=== PATIENT | female | born 1945 | race Caucasian/White ===

== ENCOUNTER 2017-02-16 07:47 | Day surgery (SDC) | payer MEDICARE, MEDICAID, SELFPAY ==
[2017-02-15 12:45] VITALS: BMI 29.9
[2017-02-16 09:13] LABS: Blood Urea Nitrogen 29 mg/dL (7-18); Carbon Dioxide 21 mmol/L (21.0-32.0); Chloride 107 mmol/L (98-107); Creatinine Clearance Estimated 42 mg/ml (0-300); Creatinine,Serum 1.39 mg/dL (0.55-1.02); Estimated Glomerular Filt Rate 37 ml/min (>60); GFR (African American) 45 ML/MIN (>60); Glucose 124 mg/dL (74-106); Sodium 137 mmol/L (136-145)
--- NOTE | 2017-02-16 10:00 | P.PN_ITS ---
[facility] Anesthesia Checklist - Airway Assessment C-Spine Mobility Assessed: Yes (MP2) TMJ Mobility Assessed: Yes - Neurological Assessment Level of Consciousness: Awake, Alert - Anesthesia Plan Anesthesia Risk discussed: Yes Anesthesia Plan: Verified ASA Class: III Anesthesia Type: MAC [facility] Anesthesia HX Medical History: Reports:: Diabetes Mellitus Type 2 (diet controlled), Hypertension Denies:: Cancer, Diabetes Mellitus Type 1, MRSA, Seizures Other Medical History: Denies: Blood Transfusion Reaction Comment: MURMUR Laterality Cases: Bilateral: Cataract Amputation: No Comment: Cystoscopy *Family Hx:: Hyperlipidemia, Hypertension
[2017-02-16 10:40] VITALS: BP 102/51; PULSE 78; RESP 18; TEMP 36.4; O2SAT 96
[2017-02-16 10:55] VITALS: BP 116/89; PULSE 71; RESP 20; TEMP 36.4; O2SAT 99
[2017-02-16 11:10] VITALS: BP 133/57; PULSE 73; RESP 20; TEMP 36.4; O2SAT 96
--- NOTE | 2017-02-16 11:28 | SUR.PHASEII ---
FU APPT MADE FOR MARCH 23, AT 1PM
--- NOTE | 2017-02-16 12:46 | P.OP_ITS ---
Date of procedure: 02/16/17 Pre-op Diagnosis:: Chronic cystitis and dysuria Post-op diagnosis:: same Procedure performed:: Cystoscopy with urethral dilation Surgeon:: Ananda Mondragon MD Anesthesia: MAC Estimated blood loss (mL): 0 Clinical Note:: History of chronic cystitis and urethritis symptoms. She has urinary frequency nocturia and dysuria. Typically she responds to urethral dilation. Operative findings:: Satisfactory sedation she was placed in the dorsolithotomy position. gENITAL area was prepped and draped in standard manner. A 21 Burmese cystoscope sheath was introduced. The bladder was inspected with 30 and 70? lenses. He had moderate squamous metaplasia of the trigone. Her urethra was snug on the sheath. She was calibrated 24 through 30 Burmese with the Paul sounds Xylocaine jelly was instilled. Operative note:: As above Pathology: none sent Condition: stable Disposition: PACU Complications:: None Placed on Levaquin 250 mg daily for 3 weeks and will follow up in 1 month.
== END 2017-02-16 11:26 | disposition home or self-care (01) ==
PROVIDERS: Family Provider Nurse Practitioner Family; PCP Nurse Practitioner; Visit Provider Urology
PROC: 0TJB8ZZ Inspection of Bladder, Via Natural or Artificial Opening Endoscopic (ICD-10-PCS; CPT 52000; principal; 2017-02-16 10:00)
DX: N34.2 Other urethritis (principal)
CPT/HCPCS: 52281; 80048; 87086; 87088; 87186

== ENCOUNTER → 2017-05-31 10:01 | Outpatient (POV) | payer MEDICARE, MEDICAID, SELFPAY | PROVIDERS: Visit Provider Physician Assistant | DX: Z00.00 Encounter for general adult medical examination without abnormal findings (principal) ==

== ENCOUNTER → 2017-11-01 13:18 | Outpatient (POV) | payer MEDICARE, MEDICAID, SELFPAY | PROVIDERS: Family Provider Nurse Practitioner Family; PCP Nurse Practitioner; Visit Provider Physician Assistant | DX: Z00.00 Encounter for general adult medical examination without abnormal findings (principal) ==

== ENCOUNTER → 2017-12-07 12:58 | Outpatient (POV) | payer MEDICARE, MEDICAID, SELFPAY | PROVIDERS: Visit Provider Dermatology | DX: Z00.00 Encounter for general adult medical examination without abnormal findings (principal) ==

== ENCOUNTER → 2018-03-04 13:07 | Outpatient (CLI) | payer MEDICARE, MEDICAID, SELFPAY ==
--- NOTE | 2018-03-04 | US_ITS ---
ULTRASOUND THYROID PROCEDURE: Multiple sagittal & transverse ultrasound images of the thyroid. HISTORY: Enlarged thyroid Sore throat. Neck swelling COMPARISON: No prior thyroid ultrasound Previous MR neck partially includes thyroid ----- FINDINGS: Bilateral thyroid enlargement left lobe larger than right. Slight Decreased color Doppler flow bilateral thyroid RIGHT LOBE: 4.1 cm x 1.7 cm AP x1.6 cmtransverse. Nodule A: Small hypoechoic mixed density nodule midportion right lobeMeasures up to 7.5 mm length maximally Nodule B: Small hypoechoic mixed mainly cystic nodule measuring up to 5 mm maximally at lateral margin lower right lobe Nodule C: 1.15 cm hypoechoic debris-filled cyst or hypoechoic nodule at posterior aspect lower right lobe. LEFT LOBE: 4.8 cm length of 2 cm AP x 2.2 cm transverse. Nodule A: hypoechoic nodule or more likely debris-filled cyst mid left lobe. Just less than 6 mm size Nodule B: Hypoechoic likely debris-filled cyst measuring up to just less than 8 mm length Nodule C: Solid nodule posterior left lobe measures up to 15 mm length x 77 mm. X 13 mm transverse. Nodule D: Probable cyst posterior aspect upper left lobe measuring up to 7.3 mm maximum ----- ISTHMUS: Thickened measuring up to 1.1 cm ------IMPRESSION. --------- Thyromegaly. Bilateral thyroid enlargement. Left lobe larger than right, with thickening isthmus also noted. . Bilateral thyroid nodules & cysts. The largest solid nodule measuring up to 1.5 cm at the posterior aspect lower pole left lobe.
--- NOTE | 2018-03-04 13:14 | US_ITS ---
US soft tissue head and neck Ordering Physician: Antonella Mena Patient Age: 72 years: Female HISTORY: ITS.REASON: NECK SWELLINGneck swelling sore throat TECHNIQUE: Multiple axial sagittal images of neck bilaterally. Including images of submandibular and parotid glands bilaterally as well as survey of nodes COMPARISON :Oct 2016 MRI of the C-spine FINDINGS Right submandibular gland measures up to 3.4 seem in length. Left submandibular gland 3.45 cm length. A fairly symmetric. No submandibular mass evident Superior to the left submandibular gland there is a 1 cm x 0.65 cm hypoechoic nodule, lymph node. This is most likely a generous benign lymph node but I would like to see a more evident fatty hilum to confirm its benign nature . I suggest follow-up 4 months. It enlarges or neck symptoms progress CT neck with contrast suggested A Oct 2016 MRI of the C-spine shows shows similar benign appearing lymph nodes bilaterally in this region, noted posterior to the superior aspect of submandibular gland bilaterally.. These measure up to 9 mm bilaterally and slightly more evident on left. . IMPRESSION 1.... No prominent findings.... No mass lesion or significant appearing adenopathy at the neck identified Submandibular and parotid glands appear symmetric & unremarkable on today's ultrasound survey 2.... A 1 cm lymph node superior to the left submandibular gland was noted. Appears to be benign lymph node, with similar appearing benign appearing bilateral lymph nodes on previous MRI C-spine. If any progressive palpable fullness at neck or swelling or progressive symptoms at neck, would suggest follow-up CT with contrast. This would provides more optimal survey overview of entire neck.
== END ==
PROVIDERS: PCP Nurse Practitioner Family; Visit Provider Nurse Practitioner Family
DX: R22.1 Localized swelling, mass and lump, neck (principal)
CPT/HCPCS: 76536

== ENCOUNTER → 2018-03-10 11:53 | Outpatient (CLI) | payer MEDICARE, MEDICAID, SELFPAY ==
[2018-03-10 13:21] LABS: Blood Urea Nitrogen 28 mg/dL (7-18); Calcium 9.7 mg/dL (8.5-10.1); Carbon Dioxide 21 mmol/L (21.0-32.0); Chloride 106 mmol/L (98-107); Creatinine,Serum 1.37 mg/dL (0.55-1.02); Estimated Glomerular Filt Rate 38 ml/min (>60); GFR (African American) 46 ML/MIN (>60); Glucose 118 mg/dL (74-106); Sodium 139 mmol/L (136-145)
== END ==
PROVIDERS: Visit Provider Internal Medicine Cardiovascular Disease
DX: I10 Essential (primary) hypertension (principal); R94.31 Abnormal electrocardiogram [ECG] [EKG]
CPT/HCPCS: 36415; 80048

== ENCOUNTER → 2018-03-23 09:56 | Outpatient (CLI) | payer MEDICARE, MEDICAID, SELFPAY ==
--- NOTE | 2018-03-23 09:57 | NM_ITS ---
History and Indications: Hypertension, diabetes, hyperlipidemia, shortness of breath and abnormal EKG. Procedure: Patient received a 0.4 mg of intravenous Lexiscan, resting heart rate was 66 bpm resting blood pressure 181/79, with Lexiscan maximum heart rate achieved was 88 bpm which is less than 85% of the maximum] heart rate and a blood pressure was 141/72. With Lexiscan patient complained of malaise. Electrocardiogram: Resting electrocardiogram showed sinus rhythm nonspecific ST-T changes, with Lexiscan there is less than 1.[address] segment depression noted from the baseline EKG. The EKG portion of the Lexiscan Myoview is nondiagnostic. Cardiac stress and resting SPECT images: Cardiac stress and resting SPECT images were obtained using technetium 99 Myoview 32.2 mCi at stress and 11.2 mCi at rest. Gated SPECT further analysis of segmental wall motion and calculation of the ejection fraction also done. Cardiac stress and resting SPECT images show decreased tracer activity in the anterior, anteroapical and anteroseptal wall which improves on the resting images suggestive of reversible ischemia, computer derived ejection fraction is over 65% with no regional wall motion abnormality, right ventricle is normal size and contractility. Conclusion: 1. The EKG portion of the Lexiscan Myoview is nondiagnostic. 2. Scintigraphic evidence of mild reversible ischemia involving the anterior and anteroseptal wall, computer derived ejection fraction is over 65% with no regional wall motion abnormality, right ventricle is normal size and contractility. 3. Abnormal Lexiscan Myoview study.
--- NOTE | 2018-03-23 09:57 | CA_ITS ---
PROCEDURE: 2-D M-mode and color Doppler study INDICATIONS FOR THE TEST: Chest pain COPD Heart Murmur Tobacco Smoking Palpitations Fatigue Syncope Edema Hypertension+Diabetes Mellitus+ Rheumatic Fever SOB BAUTISTA Obesity Hyperlipidemia+ Family History HD Additional History ABN EKG, CKD PATIENT INFORMATION HEIGHT: 62 WEIGHT: 159 GENDER: Female B/P: 181/71 2-D/M-MODE INTERPRETATION: 2-D MEASUREMENTS OBSERVED VALUES IN CMS Right Ventricular Dimension (RVDd) 2.3 Interventricular Septum (Thickness)(IVsd) 0.8 Left Ventricular Internal Dimensions(LVIDd) 4.4 Left Ventricular Posterior Wall (Thickness)(LVPWd) 0.8 Aortic Root 2.1 Aortic Cusp Separation 1.7 Left Atrial Dimensions (LAD) 4.2 2D 1. Left atrium is mildly enlarged, left ventricle is normal size, mild concentric left ventricular hypertrophy, visually estimated ejection fraction 55% with no regional wall motion abnormality. 2. The right atrium and right ventricle are qualitatively mildly enlarged with normal contractility. 3. The aortic valve is thickened and calcified leaflet continue to display mobility. 4. The mitral and tricuspid valve leaflets are minimally thickened. 5. The pulmonic valve is poorly present. 6. No significant pericardial effusion noted. DOPPLER INTERROGATION: Doppler interrogation of the aortic, mitral and tricuspid valvular presence of mild mitral and tricuspid regurgitation, tricuspid regurgitation jet velocity is inadequate for calculation of the right ventricular systolic pressure, grade 1 diastolic dysfunction seen with tissue Doppler evidence of raised left atrial pressure. CONCLUSION: 1. Mildly enlarged left atrium, normal left ventricular size, mild concentric left ventricular hypertrophy, visually estimated ejection fraction of 55% with no regional wall motion abnormality, grade 1 diastolic dysfunction seen with tissue Doppler evidence of raised left atrial pressure. 2. Mildly enlarged right ventricle with normal contractility. 3. Mild mitral and tricuspid regurgitation. 4. No significant pericardial effusion noted.
--- NOTE | 2018-03-23 12:29 | HMH.ITSHM ---
Current Home Medications as stated by this patient Jesas Cristobal or software support representative. []METOPROLOL NIFEDIPINE VITAMIN D2 ASA
== END ==
PROVIDERS: PCP Nurse Practitioner Family; Visit Provider Internal Medicine Cardiovascular Disease
DX: R94.31 Abnormal electrocardiogram [ECG] [EKG]; E11.8 Type 2 diabetes mellitus with unspecified complications; E78.5 Hyperlipidemia, unspecified; N18.9 Chronic kidney disease, unspecified; R22.0 Localized swelling, mass and lump, head; R42 Dizziness and giddiness
CPT/HCPCS: 78452; 93017; 93306; A9502; J2785

== ENCOUNTER → 2018-03-31 13:31 | Outpatient (CLI) | payer MEDICARE, MEDICAID, SELFPAY ==
[2018-03-31 14:56] LABS: Calcium 9.7 mg/dL (8.5-10.1); Free T4 (Free Thyroxine) 1.06 ng/dl (0.76-1.46); Thyroid Stimulating Hormone 2.09 uIU/ml (0.358-3.740)
[2018-04-01 12:28] LABS: Thyroid Peroxidase Antibodies 34 IU/mL (0-34)
[2018-04-05 09:51] LABS: Calcitonin <2.0 pg/mL (0.0-5.0); Thyroid Stimulating Immunoglob <0.10 IU/L (0.00-0.55)
== END ==
PROVIDERS: Visit Provider Otolaryngology
DX: E01.0 Iodine-deficiency related diffuse (endemic) goiter (principal)
CPT/HCPCS: 36415; 82308; 82310; 84439; 84443; 84445; 86376

== ENCOUNTER → 2018-04-21 09:43 | Outpatient (CLI) | payer MEDICARE, MEDICAID, SELFPAY ==
--- NOTE | 2018-04-21 09:46 | FL_ITS ---
FL barium swallow INDICATION: Soreness in throat for 2 months. Persistent sore throat : pressure in throat dysphagia . Thyromegaly with scattered thyroid nodules on recent thyroid ultrasound. TECHNIQUE & FINDINGS: . Esophagram were performed following August 02 of barium. Esophagram fluoroscopy observation performed by Dr. Sethi 2 minutes 8 seconds seconds fluoroscopy time. Normal appearing cervical esophagus. Normal cricopharyngeus muscle Symmetrical vallecula and piriform sinuses . I would note moderate Anterior osteophytes throughout C-spine which only very slightly impinge upon the lower cervical esophagus and could conceivably yield some minor symptoms of dysphagia-but these are unimpressive, and the patient's symptoms seem to be more superior than I would anticipate from such. On also note history of thyroid nodules and thyromegaly but the esophagus and trachea remaining midline. No displacement The thoracic esophagus appears with normal peristalsis and no lesions. There are some scant GE reflux during the latter course of the study but this was minimal.. No hiatal hernia expressed with Valsalva. GE junction satisfactory. IMPRESSION:. 1. No prominent findings.. Minor observations: . 2. Cervical esophagus appears overall satisfactory. There are Moderate anterior marginal osteophytes throughout C-spine which slightly impinge upon the posterior aspect cervical esophagus, particularly inferiorly. Conceivably Could contribute to symptoms of dysphagia, but the patient's symptoms seem to be superior to these features; thus of doubtful significance.. 3. Scant GE reflux observed. No hiatal hernia. Thoracic esophagus otherwise unremarkable
== END ==
PROVIDERS: PCP Nurse Practitioner Family; Visit Provider Otolaryngology
DX: E04.1 Nontoxic single thyroid nodule (principal); R13.10 Dysphagia, unspecified
CPT/HCPCS: 74220

== ENCOUNTER → 2018-04-28 13:33 | Outpatient (CLI) | payer MEDICARE, MEDICAID, SELFPAY ==
[2018-04-28 15:27] LABS: Free T4 (Free Thyroxine) 1.03 ng/dl (0.76-1.46); Thyroid Stimulating Hormone 1.21 uIU/ml (0.358-3.740)
== END ==
PROVIDERS: Visit Provider Otolaryngology
DX: R13.10 Dysphagia, unspecified (principal)
CPT/HCPCS: 36415; 84439; 84443

== ENCOUNTER → 2018-05-03 12:48 | Outpatient (POV) | payer MEDICARE, MEDICAID, SELFPAY | PROVIDERS: Visit Provider Dermatology | DX: Z00.00 Encounter for general adult medical examination without abnormal findings (principal) ==

== ENCOUNTER → 2018-05-10 12:42 | Outpatient (CLI) | payer MEDICARE, MEDICAID, SELFPAY ==
--- NOTE | 2018-05-10 12:44 | US_ITS ---
US thyroid HISTORY: follow-up thyroid nodules ITS.REASON: Thyroid nodule ORDERING PHYSICIAN: Randy Greco MD PATIENT AGE: 73 years Comparison: 03/04/2018 FINDINGS: The isthmus is thickened at 1 cm similar to the previous exam. The right lobe is 4.2 x 1.4 x 2 cm. There are no change in the 5 hypoechoic/cystic nodules of the right lobe of the thyroid gland. The largest nodule is 1 cm and is in the mid aspect.. These have low level of suspicion for malignancy. The left lobe is 4.2 x 1.9 x 2.2 cm. Multiple hypoechoic nodules also noted on the left with an isoechoic 8 mm nodule in the mid polar region unchanged. A solid-appearing nodule is present in the lower pole at 12 mm and is slightly smaller previously at 16 mm. IMPRESSION: Overall no change in the multiple bilateral thyroid nodules which have low level of suspicion for malignancy
== END ==
PROVIDERS: PCP Nurse Practitioner Family; Visit Provider Otolaryngology
DX: E04.1 Nontoxic single thyroid nodule (principal)
CPT/HCPCS: 76536

== ENCOUNTER → 2018-07-22 11:45 | Outpatient (CLI) | payer MEDICARE, MEDICAID, SELFPAY ==
[2018-07-22 17:24] LABS: Anion Gap 18.3 mEq/L (5-15); Blood Urea Nitrogen 38 mg/dL (7-18); Calcium 9.1 mg/dL (8.5-10.1); Carbon Dioxide 21 mmol/L (21.0-32.0); Chloride 107 mmol/L (98-107); Creatinine,Serum 1.41 mg/dL (0.55-1.02); Estimated Glomerular Filt Rate 36 ml/min (>60); GFR (African American) 44 ML/MIN (>60); Glucose 108 mg/dL (74-106); Potassium 5.3 mmoL/L (3.5-5.1); Sodium 141 mmol/L (136-145)
== END ==
PROVIDERS: Visit Provider Internal Medicine Cardiovascular Disease
DX: E11.9 Type 2 diabetes mellitus without complications (principal); I25.10 Atherosclerotic heart disease of native coronary artery without angina pectoris; N18.9 Chronic kidney disease, unspecified
CPT/HCPCS: 36415; 80048

== ENCOUNTER → 2018-08-02 13:39 | Outpatient (POV) | payer MEDICARE, MEDICAID, SELFPAY ==
[2018-08-02 14:50] LABS: Anion Gap 16.2 mEq/L (5-15); Blood Urea Nitrogen 39 mg/dL (7-18); Calcium 9.1 mg/dL (8.5-10.1); Carbon Dioxide 22 mmol/L (21.0-32.0); Chloride 108 mmol/L (98-107); Creatinine,Serum 1.77 mg/dL (0.55-1.02); Estimated Glomerular Filt Rate 28 ml/min (>60); GFR (African American) 34 ML/MIN (>60); Glucose 111 mg/dL (74-106); Potassium 5.2 mmoL/L (3.5-5.1); Sodium 141 mmol/L (136-145)
== END ==
PROVIDERS: Urology; Visit Provider Dermatology
DX: E87.5 Hyperkalemia (principal); I10 Essential (primary) hypertension; I25.10 Atherosclerotic heart disease of native coronary artery without angina pectoris
CPT/HCPCS: 36415; 80048

== ENCOUNTER → 2018-08-05 08:28 | Outpatient (CLI) | payer MEDICARE, MEDICAID, SELFPAY ==
[2018-08-05 10:31] LABS: Anion Gap 18.7 mEq/L (5-15); Blood Urea Nitrogen 29 mg/dL (7-18); Calcium 8.7 mg/dL (8.5-10.1); Carbon Dioxide 22 mmol/L (21.0-32.0); Chloride 106 mmol/L (98-107); Creatinine,Serum 1.31 mg/dL (0.55-1.02); Estimated Glomerular Filt Rate 40 ml/min (>60); GFR (African American) 48 ML/MIN (>60); Glucose 108 mg/dL (74-106); Sodium 141 mmol/L (136-145)
[2018-08-05 10:32] LABS: Potassium 5.7 mmoL/L (3.5-5.1)
== END ==
PROVIDERS: Visit Provider Internal Medicine Cardiovascular Disease
DX: E78.5 Hyperlipidemia, unspecified (principal); I10 Essential (primary) hypertension; I25.10 Atherosclerotic heart disease of native coronary artery without angina pectoris
CPT/HCPCS: 36415; 80048

== ENCOUNTER → 2018-08-08 08:27 | Outpatient (CLI) | payer MEDICARE, MEDICAID, SELFPAY ==
[2018-08-08 10:29] LABS: Anion Gap 15.7 mEq/L (5-15); Blood Urea Nitrogen 27 mg/dL (7-18); Calcium 8.8 mg/dL (8.5-10.1); Carbon Dioxide 24 mmol/L (21.0-32.0); Chloride 105 mmol/L (98-107); Creatinine,Serum 1.29 mg/dL (0.55-1.02); Estimated Glomerular Filt Rate 40 ml/min (>60); GFR (African American) 49 ML/MIN (>60); Glucose 118 mg/dL (74-106); Potassium 4.7 mmoL/L (3.5-5.1); Sodium 140 mmol/L (136-145)
== END ==
PROVIDERS: Visit Provider Physician Assistant
DX: E11.9 Type 2 diabetes mellitus without complications (principal); E78.5 Hyperlipidemia, unspecified; I10 Essential (primary) hypertension; I25.10 Atherosclerotic heart disease of native coronary artery without angina pectoris; N18.9 Chronic kidney disease, unspecified; R22.0 Localized swelling, mass and lump, head; R42 Dizziness and giddiness; R94.30 Abnormal result of cardiovascular function study, unspecified
CPT/HCPCS: 36415; 80048

== ENCOUNTER → 2018-09-13 11:09 | Outpatient (CLI) | payer MEDICARE, MEDICAID, SELFPAY ==
--- NOTE | 2018-09-13 11:16 | XR_ITS ---
EXAM: XR lumbar spine min 4V HISTORY: ITS.REASON: LT HIP , LBP W/LT SCIATICA ORDERING PHYSICIAN: Antonella Mena APRN PATIENT AGE: 73 years COMPARISON: None FINDINGS: There is mild lumbar scoliosis convex left. Multilevel degenerative disc disease is present from T11- S1. The degenerative disc disease is most severe at T11-T12, T12-L1, and L5-S1. Mild facet arthritic changes are present at L4-L5 and L5-S1. Vascular calcifications are noted. No fracture or dislocation. No lytic or blastic change. IMPRESSION: Mild levoscoliosis with lumbar spondylosis as described above.
--- NOTE | 2018-09-13 11:16 | XR_ITS ---
XR hip LT 2-3V w/pelvis HISTORY: ITS.REASON: LT HIP , LBP W/LT SCIATICA ORDERING PHYSICIAN: Antonella Mena APRN PATIENT AGE: 73 years COMPARISON: None FINDINGS: No fracture or dislocation is evident. No significant degenerative change. No lytic or blastic change. Unremarkable soft tissues IMPRESSION: Negative hip
== END ==
PROVIDERS: PCP Nurse Practitioner Family; Visit Provider Nurse Practitioner Family
DX: M25.552 Pain in left hip (principal); M54.42 Lumbago with sciatica, left side
CPT/HCPCS: 72110; 73502

== ENCOUNTER → 2018-09-23 13:27 | Outpatient (CLI) | payer MEDICARE, MEDICAID, SELFPAY ==
--- NOTE | 2018-09-23 13:29 | MR_ITS ---
MR lumbar spine wo con, MR 3-d myelogram/MRCP HISTORY: Low back pain X 1 month. PT also states LT leg pain, Lt Buttock pain. ITS.REASON: ARTHRITIS ORDERING PHYSICIAN: Antonella Mena APRN PATIENT AGE: 73 years Comparison: X-RAY 09/13/2018. TECHNIQUE: Standard multiplanar multiecho sequences are performed without contrast. 3-D MIP and myelographic images are also rendered and reviewed FINDINGS: There is normal alignment. The spinal cord isn't and the L1-L2 level. There is mild lumbar scoliosis convex left. Multilevel lumbar spondylosis with osteophytosis is present. T10-T11: Josh disc disease with concentric bulging disc. T11-T12: Degenerative disc disease with minimal bulging disc and with facet and ligamentum flavum hypertrophy with bilateral lateral recess narrowing and narrowing of the canal at 10 mm. Small amount of fluid is present in the facet joints at this level on both sides. Type I endplate changes T12-L1: Degenerative disc disease with mild concentric bulging disc is eccentric toward the right with mild right lateral recess narrowing and foraminal narrowing L1-L2: Minimal bulging disc. Mild facet hypertrophic change. L2-L3: Bulging disc with mild facet and ligamentum flavum hypertrophy with bilateral foraminal and lateral recess narrowing L3-L4: Mild right-sided foraminal narrowing from facet and ligamentum flavum hypertrophy. L4-5: Minimal anterolisthesis of L4 of 2 mm. Bulging disc with moderate to severe facet and ligamentum hypertrophy with canal stenosis and severe right-sided lateral recess and foraminal narrowing and mild to moderate left-sided foraminal narrowing L5-S1: Severe degenerative disc disease with bulging disc. 3 mm anterolisthesis of L5. Facet and ligamentum flavum hypertrophic change with canal stenosis and severe left-sided foraminal narrowing and moderate to severe right-sided foraminal narrowing. No extruded herniated disc. No acute fracture or dislocation IMPRESSION: There is multilevel lumbar spondylosis with degenerative disc disease, bulging discs, canal stenosis, lateral recess and foraminal narrowing. PLEASE SEE ABOVE FOR DETAILED DESCRIPTION AT EACH LEVEL.
== END ==
PROVIDERS: PCP Nurse Practitioner Family; Visit Provider Nurse Practitioner Family
DX: M19.90 Unspecified osteoarthritis, unspecified site (principal)
CPT/HCPCS: 72148; 76376

== ENCOUNTER → 2018-11-15 12:42 | Outpatient (CLI) | payer MEDICARE, MEDICAID, SELFPAY ==
--- NOTE | 2018-11-15 12:43 | US_ITS ---
PROCEDURE: US THYROID CLINICAL INDICATION: Thyroid nodule COMPARISON: THY US thyroid from 05/10/2018 FINDINGS: Right lobe: Measures 1.4 x 4.5 x 2.4 centimeters. Parenchyma echogenicity is stable. Again seen are the hypoechoic/small cystic nodules however on the prior study there was a anechoic lesion from the midportion of the right thyroid lobe and this appears smaller measuring 0.5 centimeters. The other small nodules are stable. Left lobe: Measures 1.7 x 4.5 x 1.9 centimeters. Parenchymal echogenicity is stable. The previously described anechoic nodules are stable and the hypoechoic oval-shaped lesion in the posterior lower pole of the left thyroid lobe measures 1.3 centimeters and the considering some difference in measuring technique this is fairly stable. Isthmus: 0.9 centimeters. Additional findings: IMPRESSION: There has been no interval enlargement or development of a new thyroid nodule. The multiple anechoic and hypoechoic nodules bilaterally are stable. The mid right thyroid lobe anechoic nodule is somewhat smaller. Dictated by: Jeyson Yadav 11/15/2018 14:09 Electronically signed by Jeyson Yadav in [place] 11/15/2018 14:09
== END ==
PROVIDERS: PCP Nurse Practitioner Family; Visit Provider Otolaryngology
DX: E04.1 Nontoxic single thyroid nodule (principal)
CPT/HCPCS: 76536

== ENCOUNTER 2018-11-15 13:36 | Observation (INO) ==
--- NOTE | 2018-11-15 13:48 | Emergency Department Note ---
ED Disposition Clinical Impression: Hyperkalemia Disposition: Admitted as Observation Condition on Discharge: Good Referrals: Silke Carrion MD [Primary Care Provider] - - Critical Care Critical Care Time: Yes Attestation: On , the high probability of a clinically significant, sudden or life threatening deterioration of the following system(s) required my full and direct attention, intervention and personal management. The time I documented below is in addition to time spent performing reported procedures but includes the following listed in this critical care notation. Vital system(s) involved:: Metabolic Failure My critical care processes included: Assessment & monitoring of V/S, Initial and Re-exams, Data Review/Interpretation, Coordinating Care, Medication Orders and management, Documentation Medical Decision Making - Bharath Inquiry Pt receiving controlled substance: No Vital Signs: 11/15/18 13:48 11/15/18 13:57 11/15/18 15:46 Temperature 98.4 F Temperature Source Oral Pulse Rate 63 Pulse Rate [Right Radial] 67 61 Respiratory Rate 18 Blood Pressure [Right Arm] 188/69 H 168/69 H Blood Pressure Mean [Right Arm] 108 102 Blood Pressure Source [Right Arm] Automatic Cuff Blood Pressure Position [Right Arm] Sitting 02 Sat by Pulse Oximetry 97 97 Oxygen Delivery Method Room Air - Lab Data Lab Results 11/15/18 14:12: Sodium 140, Potassium 6.5 H*, Chloride 108 H, Carbon Dioxide 22, Anion Gap 16.5 H, BUN 44 H, Creatinine 1.72 H, Estimated Creat Clear 31, Estimated GFR 29 L, Est GFR ( Amer) 35 L, Glucose 103, Calcium 8.8 Result diagrams: 11/15/18 14:12 Orders (Tests/Meds): ED MEDICATIONS Discontinued Medications Generic Name Dose Route Start Last Admin Trade Name Freq PRN Reason Stop Dose Admin Albuterol Sulfate 2.5 mg 11/15/18 15:31 11/15/18 15:43 Albuterol 0.083% 2.5mg/3ml Neb IH 11/15/18 15:32 2.5 mg ONCE ONE Administration Dextrose 50 ml 11/15/18 15:31 11/15/18 15:42 Dextrose 50% 50ml Syringe IVP 11/15/18 15:32 50 ml ONCE ONE Administration Insulin Human Regular 10 unit 11/15/18 15:31 11/15/18 15:42 Humulin R Insulin 100 Units/Ml 10ml Vial IVP 11/15/18 15:32 10 unit ONCE ONE Administration Sodium Bicarbonate 50 meq 11/15/18 15:32 11/15/18 15:43 Sodium Bicarbonate 8.4% 50ml Syringe IV 11/15/18 15:33 50 meq ONCE ONE Administration - ECG Data Tracing #1 EKG interpreted by Mahamed Portillo MD: Rhythm: sinus Rate: 64 [place]: normal Ectopy: none Conduction: normal ST Segment Changes: none T Wave Changes: none, no peaked T waves. Q Waves: Septal No evidence of acute ischemia or injury Low voltage QRS Prior electrocardiagrams reviewed. No change from prior tracings. - Physician Consults Physician Consulted: Rick Time: 15:52 Reason -: Admission Comment/Response: Agrees to admit the patient to the hospital. We discussed the patient's clinical information, including history, exam, laboratory and radiology results and ED course. Per hospital procedure, I will write temporary bridge inpatient orders on the patient. Specific orders requested by the admitting physician: Gentle IV fluid hydration, Kayexalate 15 g now and repeat dose this evening, then recheck potassium. General Adult HPI - General Stated complaint: postassium levels Time Seen by Provider: 11/15/18 13:50 - History of Present Illness HPI narrative: The patient is sent in by her primary care provider with reports of elevated potassium. She says she had blood work drawn yesterday and was called today and told that her potassium level is 6.7 and to come to the emergency room. The patient does have stage III kidney disease. She is not on potassium or diuretics at home. She is not on Spironolactone or lisinopril. She says the same thing happened in February, she was seen here and her potassium level was normal. - Related Data Home Medications Medication Instructions Recorded Confirmed Aspirin [Aspirin 81mg chewable 81 mg PO DAILY 02/16/17 11/15/18 tab] ergocalciferol (vitamin D2) 50,000 50,000 unit PO Q2W cap 08/25/18 11/15/18 unit capsule Candesartan Cilexetil [Atacand] 40 mg PO DAILY 11/15/18 11/15/18 Isosorbide Mononitrate [Imdur 30mg 30 mg PO DAILY 11/15/18 11/15/18 ER tablet] Metoprolol Justice/Hydrochlorothiaz 1 each PO BID 11/15/18 11/15/18 [Metoprolol ER-Hctz 100-12.5 mg] Allergies Allergy/AdvReac Type Severity Reaction Status Date / Time hydralazine Allergy Severe throat Verified 09/09/18 22:28 swelling lisinopril Allergy Severe throat Verified 09/09/18 22:28 swelling amlodipine Allergy Mild Unknown Verified 11/15/18 13:58 allergy reaction telmisartan AdvReac Mild Unknown Verified 11/15/18 13:58 allergy reaction [facility] History - Hepatitis A Screen Attestation statement:: This patient has been screened for Hepatitis A risk factors. I have reviewed the patient's past medical history: Yes Medical History: Reports:: Coronary Artery Disease, Diabetes Mellitus Type 2, Heart Murmur, Hyperlipidemia, Hypertension, Renal Disease Denies:: Cancer, Diabetes Mellitus Type 1, Internal Pacemaker, MRSA, Seizures Other Medical History: Reports: Arthritis. Denies: Blood Transfusion Reaction Comment: MURMUR Other Surgeries: Yes: Dilation and Curettage, Hysterectomy-Total, Other. No: Pacemaker Amputation: No Comment: Cystoscopy - Social History Smoking Status: Never smoker Alcohol Intake: never Substance Use Type: denies use Occupational Status: unemployed Housing: other Household Members: none Family Hx:: Hyperlipidemia, Hypertension, Cancer, Coronary Artery Disease, Heart Attack Comment: Mother-CAD,[place]-@70. Father-CAD, [place]@89. Brother x2-CAD, [place] @70's ROS Obtained: Yes All systems reviewed & no additional complaints - Constitutional Constitutional: Denies fever(s) - Cardiovascular Cardiovascular: Denies chest pain, Denies palpitations, Denies rapid heart rate, Denies slow heart rate - Respiratory Respiratory: No dyspnea - Gastrointestinal Gastrointestingal: Denies: abdominal pain, diarrhea, vomiting Physical Exam - General General appearance: alert, in no apparent distress - Head Head exam: atraumatic, normocephalic - Eye Eye exam: Present: normal appearance, EOMI - ENT ENT exam: Present: normal exam, mucous membranes moist - Neck Neck exam: Present: normal inspection, trachea midline - Chest Chest inspection: Present: normal inspection, symmetric chest wall rise - Respiratory Respiratory exam: Present: normal lung sounds bilaterally. Absent: respiratory distress - Cardiovascular Cardiovascular exam: Present: regular rate, normal rhythm, normal heart sounds - Abdominal Exam Abdominal exam: Present: soft, normal bowel sounds. Absent: distention, tenderness - Extremities Exam Extremities exam: Present: normal inspection - Neurological Exam Neurological exam: Present: alert, oriented X3 - Psychiatric Psychiatric exam: Present: normal affect, normal mood
[2018-11-15 14:30] LABS: Anion Gap 16.5 mEq/L (5-15); Calcium 8.8 mg/dL (8.5-10.1)
--- NOTE | 2018-11-15 20:03 | Electrocardiograph Report ---
APPROVED REPORT Exam: Resting ECG HR:64 bpm ECG Measurements Heart Rate 64 AXES [place] 182 P 55 QRSd 74 QRS 32 QT 398 T64 QTc 410 <Conclusion> Normal sinus rhythm Low voltage QRS Late r wave progression Abnormal ECG Electronically signed by : Jason Rutherford, 11/15/2018 20:02:51
[2018-11-15 20:12] LABS: Anion Gap 16.8 mEq/L (5-15)
--- NOTE | 2018-11-16 07:19 | Pharmacy Consult Notes ---
[facility] Pharmacy VTE Monitoring - Patient Demographics Admission date: 11/15/18 Report Date: 11/16/18 Time: 07:19 Allergies/Adverse Reactions: Patient Allergies hydralazine Allergy (Severe, Verified 09/09/18 22:28) throat swelling lisinopril Allergy (Severe, Verified 09/09/18 22:28) throat swelling amlodipine Allergy (Mild, Verified 11/15/18 13:58) Unknown allergy reaction telmisartan Adverse Reaction (Mild, Verified 11/15/18 13:58) Unknown allergy reaction Height: 1.57 m Weight: 70.874 kg Patient Problems: Current Active Problems Hyperkalemia (Acute) - VTE Risk Labs: VTE Related Lab Results BUN 39 mg/dL (7-18) H 11/15/18 20:00 Creatinine 1.71 mg/dL (0.55-1.02) H 11/15/18 20:00 Estimated Creat Clear 32 mL/min (50-200) 11/15/18 20:00 Was VTE Risk Assessment Performed: Yes VTE Score: 4 VTE Risk Level: Low Risk Clinical Trial Participant: No - Prophylaxis Types of VTE Prophylaxis: TEDS Knee High
--- NOTE | 2018-11-16 07:28 | H&P/Discharge Summary ---
General - General Admission date:: 11/15/18 Discharge date: 11/16/18 *Admission Date: 11/15/18 *Chief complaint: No complaint *History of present illness: 73-year-old female with coronary artery disease and hypertension presented to the emergency department after she was contacted by the office and told to go immediately to the emergency department due to hyperkalemia. She was found to be hyperkalemic in the office with a potassium of 6.7 and on arrival to the emergency department and subsequent evaluation her potassium was 6.5. There is no evidence of cardiac toxicity. Patient was given dextrose and insulin, albuterol neb, IV fluids and admitted for serial potassiums. [facility] History I have reviewed the patient's past medical history: Yes Medical History: Reports:: Coronary Artery Disease, Diabetes Mellitus Type 2, Heart Murmur, Hyperlipidemia, Hypertension, Renal Disease Denies:: Cancer, Diabetes Mellitus Type 1, Internal Pacemaker, MRSA, Seizures *Have you ever received a pneumonia vaccine?: Yes *Have you received a flu vaccine this season?: Yes Other Medical History: Reports: Arthritis. Denies: Blood Transfusion Reaction Other Surgeries: Yes: Dilation and Curettage, Hysterectomy-Total, Other. No: Pacemaker Amputation: No - *Social History Educational Level: Completed Grade School Smoking Status: Never smoker Alcohol Intake: never Substance Use Type: denies use *Occupational Status:: unemployed Housing: other Household Members: none *Travel in the last 8 weeks: None Family Hx:: Cancer, Coronary Artery Disease, Diabetes, Heart Attack, Hyperlipidemia, Hypertension, Kidney Disease, Stroke Review of Systems - *Cardiovascular Denies chest pain - *Respiratory Denies change in phlegm color, Denies chest congestion Exam Vital signs and Labs for Last 24 Hours: Temp Pulse Resp BP Pulse Ox 98.1 F 63 18 168/70 H 96 11/16/18 04:00 11/16/18 04:00 11/16/18 04:00 11/16/18 04:00 11/16/18 04:00 Laboratory Results - last 24 hr 11/15/18 14:12: Sodium 140, Potassium 6.5 H*, Chloride 108 H, Carbon Dioxide 22, Anion Gap 16.5 H, BUN 44 H, Creatinine 1.72 H, Estimated Creat Clear 31, Estimated GFR 29 L, Est GFR ( Amer) 35 L, Glucose 103, Calcium 8.8 11/15/18 20:00: Sodium 143, Potassium 4.8 D, Chloride 108 H, Carbon Dioxide 23, Anion Gap 16.8 H, BUN 39 H, Creatinine 1.71 H, Estimated Creat Clear 32, Estimated GFR 29 L, Est GFR ( Amer) 35 L, Glucose 115 H, Calcium 9.0 I & O for Last 24 hours: Intake & Output 11/13/18 11/14/18 11/15/18 11/16/18 11:59 11:59 11:59 11:59 Intake Total 744 / 744 Balance 744 / 744 Weight 156 lb 4 oz - Constitutional no acute distress - *Routine HEENT Exam Head: Present: normocephalic Eye: Present: EOMI ENT: Present: mucous membranes moist - *Routine Respiratory Exam Present: CTA bilaterally - *Routine Cardiovascular Exam Present: RRR - *Routine Abdominal Exam Present: soft, normoactive bowel sounds Hospital Course Hospital Course: Patient was admitted. She was given oral Kayexalate as well. Repeat potassium by the evening of November 15 was normal. Patient was discharged home following morning. She will stop candesartan. She will have her isosorbide mononitrate adjusted. She will follow-up in the office in 2 days Results Labs on day of discharge: Labs from last 24 hours 11/15/18 11/15/18 20:00 14:12 Sodium 143 140 Potassium 4.8 D 6.5 H* Chloride 108 H 108 H Carbon Dioxide 23 22 Anion Gap 16.8 H 16.5 H BUN 39 H 44 H Creatinine 1.71 H 1.72 H Estimated Creat Clear 32 31 Estimated GFR 29 L 29 L Est GFR ( Amer) 35 L 35 L Glucose 115 H 103 Calcium 9.0 8.8 DS: Diagnosis - Discharge Diagnosis (1) Hyperkalemia Status: Acute Discharge Plan - Patient Discharge Instructions ACTIVITY: Continue current activity DIET: continue same diet Additional Instructions: Bring all medicines to follow-up appointment Patient Instructions: High Blood Pressure, Hyperkalemia - Follow up Plan Follow up with: Jason Cabrera MD [Staff Physician] - 11/18/18 1:30 pm Disposition: Home, Self-Nursing Home Medications: Home Medications Medication Instructions Recorded Confirmed Type Aspirin [Aspirin 81mg chewable 81 mg PO DAILY 02/16/17 11/15/18 History tab] ergocalciferol (vitamin D2) 50,000 50,000 unit PO Q2W cap 08/25/18 11/15/18 History unit capsule Doxazosin Mesylate [Doxazosin 2mg 2 mg PO DAILY 11/16/18 11/16/18 History Tab] Isosorbide Mononitrate [Imdur 30mg 2 tab PO DAILY #120 11/16/18 11/16/18 Rx ER tablet] Metoprolol Succinate 100 mg PO BID 11/16/18 11/16/18 History Prescriptions/Medication Reconciliation: Continued ergocalciferol (vitamin D2) 50,000 unit capsule 50,000 unit PO Q2W cap Metoprolol Succinate 100 mg PO BID Doxazosin Mesylate [Doxazosin 2mg Tab] 2 mg PO DAILY Aspirin [Aspirin 81mg chewable tab] 81 mg PO DAILY Changed Isosorbide Mononitrate [Imdur 30mg ER tablet] 2 tab PO DAILY #120 Discontinued Candesartan Cilexetil [Atacand] 32 mg PO DAILY - Problem Reconciliation Problems Reviewed?: Yes
[2018-11-16 07:48] LABS: Anion Gap 14.2 mEq/L (5-15); Calcium 8.5 mg/dL (8.5-10.1)
== END 2018-11-16 10:25 | disposition home or self-care (01) ==
LOC: ER 13:36 → 2ND 16:41 → INTOOBSV 17:36 → 2ND 17:37
PROVIDERS: ADMIT Family Medicine; ATTEND Family Medicine
CPT/HCPCS: 36415; 76536; 80048; 93005; 96374; 96375; 99284; G0378

== ENCOUNTER → 2018-12-20 17:17 | Outpatient (CLI) | payer MEDICARE, MEDICAID, SELFPAY | PROVIDERS: Visit Provider Internal Medicine Cardiovascular Disease | DX: N30.20 Other chronic cystitis without hematuria (principal) | CPT/HCPCS: 87086; 87088; 87186 ==

== ENCOUNTER → 2019-01-31 12:38 | Outpatient (POV) | payer MEDICARE, MEDICAID, SELFPAY | PROVIDERS: Visit Provider Dermatology | DX: Z00.00 Encounter for general adult medical examination without abnormal findings (principal) ==

== ENCOUNTER → 2019-02-09 13:10 | Outpatient (CLI) | payer MEDICARE, MEDICAID, SELFPAY ==
[2019-02-09 14:52] LABS: Anion Gap 16.4 mEq/L (5-15); Blood Urea Nitrogen 24 mg/dL (7-18); Calcium 8.9 mg/dL (8.5-10.1); Carbon Dioxide 26 mmol/L (21.0-32.0); Chloride 103 mmol/L (98-107); Creatinine,Serum 1.17 mg/dL (0.55-1.02); Estimated Glomerular Filt Rate 45 ml/min (>60); GFR (African American) 55 ML/MIN (>60); Glucose 182 mg/dL (74-106); Potassium 4.4 mmoL/L (3.5-5.1); Sodium 141 mmol/L (136-145)
== END ==
PROVIDERS: Visit Provider Family Medicine
DX: N18.9 Chronic kidney disease, unspecified (principal)
CPT/HCPCS: 36415; 80048

== ENCOUNTER → 2019-04-12 16:27 | Outpatient (CLI) | payer MEDICARE, MEDICAID, SELFPAY ==
--- NOTE | 2019-04-12 | XR_ITS ---
PROCEDURE: XR HAND RT MIN 3V CLINICAL INDICATION: PAIN AND SWELLING IN RT. HAND Pain redness and swelling COMPARISON: No exams were available for comparison FINDINGS: No obvious fracture or lytic lesion evident. On the AP view at the base of the 2nd and 3rd metacarpal the there is a triangular-shaped area of increased density which appears to be along the anterior aspect of the base of the metacarpals on the lateral view. This is of unknown etiology and may be represent a partially calcified mass. CT of the wrist may provide further evaluation. There is soft tissue swelling along the dorsal aspect of the hand. No soft tissue gas or other significant anomalies evident. Other findings:None. IMPRESSION: 1. Soft tissue swelling dorsally. 2. Suspected partially calcified mass along the base of the 2nd and 3rd metacarpals anteriorly which may be better evaluated with CT if clinically warranted Dictated by: Jovani Merino MD 04/12/2019 16:53 Electronically signed by Jovani Merino MD in [place] 04/12/2019 16:53
== END ==
PROVIDERS: PCP Family Medicine; Visit Provider Family Medicine
DX: M79.89 Other specified soft tissue disorders (principal); M79.641 Pain in right hand
CPT/HCPCS: 73130

== ENCOUNTER → 2019-04-14 08:19 | Outpatient (CLI) | payer MEDICARE, MEDICAID, SELFPAY ==
--- NOTE | 2019-04-14 08:20 | CT_ITS ---
PROCEDURE: CT HAND RT WO CON CLINICAL HISTORY: MASS Right hand pain and swelling COMPARISON: XR HAND RT MIN 3V from 04/12/2019 TECHNIQUE: Axial images obtained with sagittal and coronal reformats. All CT scans at the facility use one or more dose reduction, viz: automated exposure control, ma/kV adjustment per patient size (including targeted exams where dose is matched to indication, i.e. head), or iterative reconstruction technique. FINDINGS: Soft tissue evaluation is limited without IV contrast. There is prominent dorsal subcutaneous soft tissue swelling beginning at the radial carpal region and extending distally to the PIP area. No localized fluid collection apparent. No foreign body evident in this region. There is calcification noted involving the flexor retinaculum posteriorly and along the ulnar aspect. This likely accounts for the abnormality noted on the radiograph. No obvious fracture or bony destructive process. Joint spaces are well preserved. IMPRESSION: 1. Diffuse dorsal soft tissue swelling of the hand and wrist without focal fluid collection apparent. No radiopaque foreign body. No soft tissue gas 2. Nonspecific partial calcification of the flexor retinaculum. Dictated by: Jovani Merino MD 04/17/2019 09:46 Electronically signed by Jovani Merino MD in [place] 04/17/2019 09:46
== END ==
PROVIDERS: PCP Family Medicine; Visit Provider Family Medicine
DX: R22.9 Localized swelling, mass and lump, unspecified (principal)
CPT/HCPCS: 73200

== ENCOUNTER → 2019-11-17 11:41 | Outpatient (CLI) | payer MEDICARE, MEDICAID, SELFPAY ==
[2019-11-17 12:55] LABS: Chloride 103 mmol/L (98-107); Potassium 4.7 mmoL/L (3.5-5.1); Sodium 139 mmol/L (136-145)
[2019-11-17 12:58] LABS: Alanine Aminotransferase 22 U/L (12-78); Albumin Level 4.2 g/dl (3.5-5.0); Albumin/Globulin Ratio 1.5 (1.1-1.8); Alkaline Phosphatase 70 U/L (38-126); Anion Gap 14.7 mEq/L (5-15); Aspartate Amino Transferase 28 U/L (14-36); Bilirubin,Total 0.5 mg/dl (0.2-1.3); Blood Urea Nitrogen 25 mg/dl (7-17); Carbon Dioxide 26 mmol/L (22.0-30.0); Estimated Glomerular Filt Rate 44 ml/min (>60); GFR (African American) 53 ML/MIN (>60); Globulin 2.8 g/dL (1.3-3.2)
[2019-11-17 12:59] LABS: Glucose 131 mg/dl (74-100)
== END ==
PROVIDERS: Visit Provider Nurse Practitioner Family
DX: E11.29 Type 2 diabetes mellitus with other diabetic kidney complication (principal); I10 Essential (primary) hypertension
CPT/HCPCS: 36415; 80053

== ENCOUNTER → 2019-12-06 15:10 | Outpatient (CLI) | payer MEDICARE, MEDICAID, SELFPAY ==
[2019-12-06 18:35] LABS: Coronavirus 19 IgG Antibody Negative (Negative); Coronavirus 19 IgM Antibody Negative (Negative)
== END ==
PROVIDERS: Visit Provider Urology
DX: R30.0 Dysuria (principal); Z01.818 Encounter for other preprocedural examination
CPT/HCPCS: 36415; 86328

== ENCOUNTER 2019-12-08 07:41 | Day surgery (SDC) | payer MEDICARE, MEDICAID, SELFPAY ==
[2019-12-06 11:49] VITALS: BMI 28.6
[2019-12-08 08:19] VITALS: BP 139/73; PULSE 70; RESP 19; TEMP 36.7; O2SAT 98
--- NOTE | 2019-12-08 09:14 | HMH.ANESCL ---
[facility] Anesthesia Checklist - Structural Data Admitted From: Home Planned Operative Procedure/s: cysto w dilation Consent for Planned Operative Procedure(s) Verified: Yes - Additional verifications Anesthesia Reactions: No Hx Blood Transfusions: No Blood Transfusion Reaction: No - Airway Assessment C-Spine Mobility Assessed: Yes TMJ Mobility Assessed: Yes Dentition: Good Dentition - Neurological Assessment Level of Consciousness: Awake, Alert, Appropriate - Anesthesia Plan Anesthesia Risk discussed: Yes Anesthesia Plan: Verified ASA Class: III Anesthesia Type: MAC [facility] History I have reviewed the patient's past medical history: Yes Medical History: Reports:: Cancer (skin), Coronary Artery Disease, Heart Murmur, Hyperlipidemia, Hypertension, Renal Disease Denies:: Diabetes Mellitus Type 1, Diabetes Mellitus Type 2, Internal Pacemaker, MRSA, Seizures *Have you ever received a pneumonia vaccine?: No *Have you received a flu vaccine this season?: No Other Medical History: Reports: Arthritis. Denies: Blood Transfusion Reaction Anesthesia experience/problems:: none Other Surgeries: Yes: No Previous Surgery, Colonoscopy, Dilation and Curettage, Hysterectomy-Total, Other. No: Pacemaker Amputation: No Fractures: No - *Social History Last grade of school completed: 7th or 8th Smoking Status: Never smoker Alcohol Intake: never Substance Use Type: denies use *Occupational Status:: unemployed, disabled Housing: house Household Members: other *Travel in the last 8 weeks: None Family Hx:: Cancer, Coronary Artery Disease, Diabetes, Heart Attack, Hyperlipidemia, Hypertension, Kidney Disease, Stroke
[2019-12-08 10:00] VITALS: BP 154/78; PULSE 73; RESP 16; TEMP 36.6; O2SAT 91
[2019-12-08 10:10] VITALS: BP 144/59; PULSE 68; RESP 16; O2SAT 93
[2019-12-08 10:20] VITALS: BP 142/68; PULSE 67; RESP 16; O2SAT 93
[2019-12-08 10:40] VITALS: BP 137/67; PULSE 67; RESP 16; O2SAT 93
--- NOTE | 2019-12-08 12:12 | P.OP_ITS ---
Date of procedure: 12/08/19 Pre-op Diagnosis:: History of urethral stenosis Post-op Diagnosis:: Same Procedure performed:: Cystoscopy with urethral dilation Surgeon:: Filipe Ferguson MD AIRPLANE DISPATCH CLERK:: Jose Red Anesthesia: MAC Estimated blood loss (mL): 0 Clinical Note:: 74-year-old white female with some persistent dysuria. She has a history of urethral stenosis and has benefited from urethral dilation in the past. Operative findings:: No evidence of bladder abnormalities. The urethra was mildly stenotic. Operative note:: Patient taken to the operating room after informed consent was obtained. Placed on the operating table in the supine position and monitored anesthesia care administered. She was then placed into the dorsolithotomy position and prepped draped in the standard surgical fashion. Preoperative antibiotics were administered. He had 22 [place] open passed into the urethral meatus and into the bladder with some slight resistance. The bladder was examined in a systematic fashion. There was no evidence of mucosal abnormalities, stones, trabeculation or diverticula. The ureteral orifices in their normal anatomic position with clear efflux of urine. Bladder neck and urethra appeared normal. The bladder drained the scope removed. The urethra then dilated with the 24, 26 and 28 [place] female sounds with a slight resistance. Urojet placed into the urethra after the procedure. She tolerated well discharged to recovery in stable condition. Condition: stable Disposition: observation Specimens:: None Complications:: None
[2019-12-08 12:29] LABS: POC Glucose,Bedside 134 (70-110)
== END 2019-12-08 10:40 | disposition home or self-care (01) ==
LOC: OR 07:44
PROVIDERS: PCP Family Medicine; Visit Provider Urology
PROC: 0TJB8ZZ Inspection of Bladder, Via Natural or Artificial Opening Endoscopic (ICD-10-PCS; CPT 52000; principal; 2019-12-08 09:30)
DX: N35.92 Unspecified urethral stricture, female (principal); E78.5 Hyperlipidemia, unspecified; I10 Essential (primary) hypertension; E11.9 Type 2 diabetes mellitus without complications; I25.10 Atherosclerotic heart disease of native coronary artery without angina pectoris; N18.9 Chronic kidney disease, unspecified; Z85.828 Personal history of other malignant neoplasm of skin; Z88.8 Allergy status to other drugs, medicaments and biological substances; Z79.82 Long term (current) use of aspirin; Z79.84 Long term (current) use of oral hypoglycemic drugs; Z79.899 Other long term (current) drug therapy
CPT/HCPCS: 52281; 82962; 96374

== ENCOUNTER → 2020-01-23 10:24 | Outpatient (POV) | payer MEDICARE, MEDICAID, SELFPAY | PROVIDERS: Visit Provider Dermatology | DX: Z00.00 Encounter for general adult medical examination without abnormal findings (principal) ==

== ENCOUNTER → 2020-07-02 14:14 | Outpatient (CLI) | payer MEDICARE, MEDICAID, SELFPAY | PROVIDERS: Visit Provider Urology | DX: N39.0 Urinary tract infection, site not specified (principal) | CPT/HCPCS: 87086; 87088; 87186 ==

== ENCOUNTER → 2020-11-06 08:05 | Outpatient (CLI) | payer MEDICARE, MEDICAID, SELFPAY | PROVIDERS: Visit Provider Internal Medicine Gastroenterology | DX: Z01.812 Encounter for preprocedural laboratory examination (principal); Z20.822 Contact with and (suspected) exposure to COVID-19; Z12.11 Encounter for screening for malignant neoplasm of colon | CPT/HCPCS: C9803; U0003; U0005 ==

== ENCOUNTER 2020-11-08 08:25 | Day surgery (SDC) | payer MEDICARE, MEDICAID, SELFPAY ==
[2020-11-05 13:49] VITALS: BMI 27.6
[2020-11-08 08:43] VITALS: BP 196/96; PULSE 80; RESP 18; TEMP 36.3; O2SAT 96
[2020-11-08 08:59] LABS: POC Glucose,Bedside 125 (70-110)
--- NOTE | 2020-11-08 09:22 | P.PN_ITS ---
[facility] Anesthesia Checklist - Patient Identification Patient Identification: Arm Band, Verbal (Name & ) - Structural Data Admitted From: Home Planned Operative Procedure/s: Colonoscopy Consent for Planned Operative Procedure(s) Verified: Yes Verified Documents: Surgical Consent - NPO Status Verified Time NPO: 05:00 - Additional verifications Anesthesia Reactions: No Hx Blood Transfusions: No Blood Transfusion Reaction: No - Cardiovascular Assessment Heart Sounds: S1 & S2 Pulse Rhythm: Regular - Airway Assessment C-Spine Mobility Assessed: Yes (Limited Flexion) TMJ Mobility Assessed: Yes - Neurological Assessment Level of Consciousness: Awake, Alert, Appropriate - Anesthesia Plan Anesthesia Risk discussed: Yes ASA Class: III Anesthesia Type: General [facility] History Medical History: Reports:: Cancer (skin), Coronary Artery Disease, Diabetes Mellitus Type 2, Heart Murmur, Hyperlipidemia, Hypertension, Renal Disease, Valvular Heart Disease Denies:: Diabetes Mellitus Type 1, Internal Pacemaker, MRSA, Seizures *Have you ever received a pneumonia vaccine?: Yes *Have you received a flu vaccine this season?: Yes Other Medical History: Reports: Arthritis. Denies: Blood Transfusion Reaction Anesthesia experience/problems:: none Other Surgeries: Yes: No Previous Surgery, Cardiac Catheterization, Colonoscopy, Dilation and Curettage, Hysterectomy-Total, Other. No: Pacemaker Amputation: No Fractures: No - *Social History Last grade of school completed: 7th or 8th Smoking Status: Never smoker Alcohol Intake: never Substance Use Type: denies use *Occupational Status:: retired Housing: house Household Members: other *Travel in the last 8 weeks: None Family Hx:: Cancer
[2020-11-08 10:39] VITALS: O2SAT 97
--- NOTE | 2020-11-08 10:58 | HMH.PROC ---
[facility] Procedure Note Procedure Note:: Colonoscopy Procedure Report: Colonoscopy Endoscopist: Robin Zhou II, MD Referring physician: SOLANGE Patino Date of Procedure: November 08, 2020 Equipment: Olympus 190 variable stiffness pediatric colonoscope Sedation: MAC sedation Indication: Mrs. Cristobal is a 75-year-old female who is here for follow-up screening/surveillance colonoscopy secondary to a personal history of adenomatous polyps. She has had some intermittent dyspepsia and chronic constipation which is longstanding. She did have a colonoscopy in 2013 with Manuel Ann and had polyps removed. She does take Metamucil intermittently. She reports no rectal bleeding, abdominal pain, weight loss or family history of colon cancer. Procedure: Prior to the procedure, a history and physical exam was performed, and patient's medications and allergies were reviewed. The risks, benefits and alternatives of the sedation and procedure were discussed with the patient. All questions were answered and informed consent was obtained. The patient was brought to the procedure room. Patient identification and proposed procedure were verified by the physician and the nurse. The patient was placed in a left lateral decubitus position and the scope was passed under direct vision. Throughout the procedure, the patient's blood pressure, pulse, and oxygen saturations were monitored continuously. The colonoscopy was accomplished without difficulty. The patient tolerated the procedure well. Findings: On digital rectal examination there was normal rectal tone. There were no external hemorrhoids. The colonoscope was introduced through the anal canal to the rectum and advanced to the cecum. The ileocecal valve and appendiceal orifice were identified. The scope was advanced a short distance into the ileum which appeared grossly normal. The scope was then withdrawn into the colon. The cecum, ascending and transverse colon and mucosa were grossly normal. There were scattered diverticuli throughout the descending and sigmoid colon (LEFT colon). The rectum itself was normal. Upon retroflexion within the rectum there were grade 1 internal hemorrhoids. The preparation was excellent throughout with [place] Preparation Score of 9. The cecal time was 10 minutes. Impression: 1. Left-sided diverticulosis 2. Grade 1 internal hemorrhoids Plan: The patient will not require any further preventive/surveillance colonoscopy based upon age and comorbidities. I would encourage long-term bulking fiber supplementation on a maintenance basis.
[2020-11-08 11:01] VITALS: BP 75/43; PULSE 83; RESP 18; TEMP 36.5; O2SAT 95
[2020-11-08 11:11] VITALS: BP 92/49; PULSE 81; RESP 18; O2SAT 96
[2020-11-08 11:21] VITALS: BP 107/54; PULSE 80; RESP 18; O2SAT 96
[2020-11-08 11:35] VITALS: BP 117/61; PULSE 84; RESP 18; O2SAT 95
== END 2020-11-08 11:40 | disposition home or self-care (01) ==
LOC: OUTP 08:28
PROVIDERS: PCP Nurse Practitioner Family; Visit Provider Internal Medicine Gastroenterology
PROC: 0DJD8ZZ Inspection of Lower Intestinal Tract, Via Natural or Artificial Opening Endoscopic (ICD-10-PCS; CPT 45378; principal; 2020-11-08 09:30)
DX: Z12.11 Encounter for screening for malignant neoplasm of colon (principal); Z86.010 Personal history of colon polyps; K57.32 Diverticulitis of large intestine without perforation or abscess without bleeding; K64.0 First degree hemorrhoids; I25.10 Atherosclerotic heart disease of native coronary artery without angina pectoris; E11.9 Type 2 diabetes mellitus without complications; E78.5 Hyperlipidemia, unspecified; I10 Essential (primary) hypertension; N28.9 Disorder of kidney and ureter, unspecified; M19.90 Unspecified osteoarthritis, unspecified site; Z85.828 Personal history of other malignant neoplasm of skin; Z80.9 Family history of malignant neoplasm, unspecified
CPT/HCPCS: G0105; 82962

== ENCOUNTER → 2020-12-17 11:43 | Outpatient (CLI) | payer MEDICARE, MEDICAID, SELFPAY | PROVIDERS: Visit Provider Urology | DX: R30.0 Dysuria (principal); Z01.812 Encounter for preprocedural laboratory examination; Z11.52 Encounter for screening for COVID-19 | CPT/HCPCS: C9803; U0003; U0005 ==

== ENCOUNTER 2020-12-20 07:56 | Day surgery (SDC) | payer MEDICARE, MEDICAID, SELFPAY ==
[2020-12-18 13:11] VITALS: BMI 29.4
[2020-12-20 08:12] VITALS: BP 232/76; PULSE 73; RESP 18; TEMP 36.3; O2SAT 97
--- NOTE | 2020-12-20 08:46 | HMH.ANESCL ---
[facility] Anesthesia Checklist - Patient Identification Patient Identification: Arm Band - Structural Data Admitted From: Home Planned Operative Procedure/s: Cystoscopy with urethral dilation Consent for Planned Operative Procedure(s) Verified: Yes Verified Documents: Surgical Consent, History and Physical - NPO Status Verified Time NPO: 00:00 - Additional verifications Anesthesia Reactions: No Hx Blood Transfusions: No Blood Transfusion Reaction: No - Airway Assessment C-Spine Mobility Assessed: Yes (mp2) TMJ Mobility Assessed: Yes Dentition: Edentulous - Neurological Assessment Level of Consciousness: Awake, Alert - Anesthesia Plan Anesthesia Risk discussed: Yes Anesthesia Plan: Verified ASA Class: III Anesthesia Type: MAC [facility] History I have reviewed the patient's past medical history: Yes Medical History: Reports:: Cancer (skin), Coronary Artery Disease, Diabetes Mellitus Type 2, Heart Murmur, Hyperlipidemia, Hypertension, Renal Disease, Valvular Heart Disease Denies:: Diabetes Mellitus Type 1, Internal Pacemaker, MRSA, Seizures *Have you ever received a pneumonia vaccine?: No *Have you received a flu vaccine this season?: Yes Other Medical History: Reports: Arthritis. Denies: Blood Transfusion Reaction Anesthesia experience/problems:: nac Laterality Cases: Bilateral: Cataract Other Surgeries: Yes: Cardiac Catheterization, Colonoscopy, Dilation and Curettage, Hysterectomy-Total, Other. No: Pacemaker Amputation: No Fractures: No - *Social History Last grade of school completed: High school graduate Smoking Status: Never smoker Alcohol Intake: never Substance Use Type: denies use *Occupational Status:: retired Housing: house Household Members: other *Travel in the last 8 weeks: None Family Hx:: Cancer, Diabetes
[2020-12-20 09:53] VITALS: BP 133/66; PULSE 67; RESP 16; TEMP 37.1; O2SAT 96
[2020-12-20 10:03] VITALS: BP 140/61; PULSE 65; RESP 15; O2SAT 96
[2020-12-20 10:13] VITALS: BP 145/67; PULSE 64; RESP 16; O2SAT 96
[2020-12-20 10:23] VITALS: BP 147/76; PULSE 64; RESP 16; O2SAT 96
[2020-12-20 10:59] VITALS: TEMP 43
--- NOTE | 2020-12-20 12:10 | HMH.OPNOTE ---
Date of procedure: 12/20/20 Pre-op Diagnosis:: Dysuria, history of urethral trigonitis Post-op Diagnosis:: Urethrotrigonitis Procedure performed:: Cystoscopy with urethral dilation Surgeon:: Filipe Ferguson MD WIRELESS RETAIL MANAGER:: Chuck Greco Anesthesia: MAC Estimated blood loss (mL): 0 Clinical Note:: 75-year-old white female with history of urethral trigonitis was seen recently and there was no evidence of urinary tract infection. She has benefited from previous urethral dilations and wishes to proceed with same under MAC. Operative findings:: Mild urethral stenosis was noted, there was squamous metaplasia at the intertrigonal region. Operative note:: Patient taken to the operating room after informed consent was obtained. She was placed on the operating table in the supine position and monitored anesthesia care administered. She was then placed into the dorsal lithotomy position and prepped and draped in the standard surgical fashion. Vaginal examination was within normal limits. The urethra was dilated with a 22, 24, 26 and 28 [place] Citizen female sounds. There was some mild stenosis noted initial dilation with a 22 [place]. A 22 [place] cystoscope then passed into the urethra and the bladder emptied. The bladder then examined in a systematic fashion. There is no evidence of mucosal abnormalities, stones, diverticula or trabeculation. There was some mild squamous metaplasia at the intertrigonal region. Mild cobblestoning was noted at the trigonal region as well. The ureteral orifices in their normal anatomic position and clear efflux of urine was noted. The bladder neck and urethra otherwise normal. The bladder drained the scope removed. Urojet placed into the urethra. Patient tolerated procedure well complication. He was discharged home with 5-day course of cefdinir and a prescription for Ustell to use as needed for the dysuria. Condition: stable Disposition: same day Specimens:: None Complications:: None
[2021-11-13 10:54] LABS: POC Glucose,Bedside 130 (70-110)
== END 2020-12-20 10:25 | disposition home or self-care (01) ==
LOC: OR 07:58
PROVIDERS: PCP Nurse Practitioner Family; Visit Provider Urology
PROC: 0TJB8ZZ Inspection of Bladder, Via Natural or Artificial Opening Endoscopic (ICD-10-PCS; CPT 52000; principal; 2020-12-20 09:30)
DX: N30.30 Trigonitis without hematuria (principal); D41.4 Neoplasm of uncertain behavior of bladder; Z85.828 Personal history of other malignant neoplasm of skin; I25.10 Atherosclerotic heart disease of native coronary artery without angina pectoris; E11.9 Type 2 diabetes mellitus without complications; E78.5 Hyperlipidemia, unspecified; I10 Essential (primary) hypertension; N28.9 Disorder of kidney and ureter, unspecified; M19.90 Unspecified osteoarthritis, unspecified site
CPT/HCPCS: 52281; 82962; 96374

== ENCOUNTER → 2021-01-21 11:18 | Outpatient (POV) | payer MEDICARE, MEDICAID, SELFPAY | PROVIDERS: Visit Provider Dermatology | DX: Z00.00 Encounter for general adult medical examination without abnormal findings (principal) ==

== ENCOUNTER → 2021-02-04 10:06 | Outpatient (POV) | payer MEDICARE, MEDICAID, SELFPAY | PROVIDERS: Visit Provider Dermatology | DX: Z00.00 Encounter for general adult medical examination without abnormal findings (principal) ==

== ENCOUNTER 2021-02-05 05:40 | Inpatient (IN) | payer MEDICARE, MEDICAID, SELFPAY ==
[2021-02-05] VITALS (17 sets, daily range): BP systolic 132–227; BP diastolic 53–84; PULSE 72–90; RESP 18–24; TEMP 36.9–39.1; O2SAT 88–99; BMI 29.2; BMI 29.4
--- NOTE | 2021-02-05 06:02 | ECG_ITS ---
APPROVED REPORT Exam: Resting ECG HR:89 bpm ECG Measurements Heart Rate 89 AXES ND 160 P 47 QRSd 78 QRS 84 QT 370 T 45 QTc 450 Conclusion Normal sinus rhythm Late R wave progression Abnormal ECG Electronically signed by : Jason Rutherford MD 02/05/2021 20:35:25
--- NOTE | 2021-02-05 06:18 | XR_ITS ---
PROCEDURE INFORMATION: Exam: XR Chest Exam date and time: 02/05/2021 6:18 AM Age: 75 years old Clinical indication: Fever; Additional info: Shortness of breath TECHNIQUE: Imaging protocol: XR of the chest. Views: 1 view. COMPARISON: CR Chest 09/09/2018 10:44 PM FINDINGS: Lungs: Vague patchy bilateral infiltrates involving right greater than left lower and right upper lung roth. Pleural spaces: Unremarkable. No pleural effusion. No pneumothorax. Heart/Mediastinum: Unremarkable. No cardiomegaly. Bones/joints: S shaped thoracolumbar scoliosis. IMPRESSION: Vague bilateral infiltrates described above.
--- NOTE | 2021-02-05 06:31 | HMH.EDSOB ---
ED Disposition Clinical Impression: Severe sepsis with acute organ dysfunction CAP (community acquired pneumonia) Qualifiers: Laterality: unspecified laterality Qualified Code(s): J18.9 - Pneumonia, unspecified organism CKD (chronic kidney disease) Qualifiers: Chronic kidney disease stage: unspecified stage Qualified Code(s): N18.9 - Chronic kidney disease, unspecified Diabetes mellitus Qualifiers: Diabetes mellitus type: type 2 Diabetes mellitus terminal operations manager insulin use: unspecified terminal operations manager insulin use status Diabetes mellitus complication status: with other specified complication Qualified Code(s): E11.69 - Type 2 diabetes mellitus with other specified complication Disposition: Admitted As Inpatient Condition on Discharge: Good Referrals: Antonella Mena APRN [Primary Care Provider] - - Critical Care Critical Care Time: No Attestation: On 02/05/21, the high probability of a clinically significant, sudden or life threatening deterioration of the following system(s) required my full and direct attention, intervention and personal management. The time I documented below is in addition to time spent performing reported procedures but includes the following listed in this critical care notation. Medical Decision Making - Medical Records Medical records reviewed: Yes: I reviewed the patient's medical records. - Bharath Inquiry Pt receiving controlled substance: No Vital Signs: 02/05/21 05:55 02/05/21 06:30 02/05/21 06:37 Temperature 100.5 F H 102.4 F H Temperature Source Oral Rectal Pulse Rate 90 Pulse Rate [Right Brachial] 89 Respiratory Rate 24 21 Blood Pressure 193/72 H Blood Pressure [Right Arm] 227/84 H Blood Pressure Mean 127 Blood Pressure Mean [Right Arm] 131 Blood Pressure Source [Right Arm] Automatic Cuff Blood Pressure Position [Right Arm] Sitting 02 Sat by Pulse Oximetry 88 L 97 Oxygen Delivery Method Room Air Oxygen Flow Rate (LPM) 4 02/05/21 07:00 Temperature Temperature Source Pulse Rate 87 Pulse Rate [Right Brachial] Respiratory Rate 24 Blood Pressure 187/70 H Blood Pressure [Right Arm] Blood Pressure Mean 109 Blood Pressure Mean [Right Arm] Blood Pressure Source [Right Arm] Blood Pressure Position [Right Arm] 02 Sat by Pulse Oximetry 99 Oxygen Delivery Method Oxygen Flow Rate (LPM) - Lab Data Lab results reviewed: Yes: I reviewed the patient's lab results. Lab Results 02/05/21 06:00: SARS-CoV-2 (PCR) Not detected, Influenza A Untype (PCR) Not detected, Influenza Type B (PCR) Not detected 02/05/21 06:05: Sodium 138, Potassium 4.3, Chloride 99, Carbon Dioxide 26, Anion Gap 17.3 H, BUN 25 H, Creatinine 1.30 H, Estimated Creat Clear 42, Estimated GFR 40 L, Est GFR ( Amer) 48 L, Glucose 167 H, Calcium 9.1, Total Bilirubin 0.5, AST 37 H, ALT 28, Alkaline Phosphatase 94, Troponin I 0.01, C-Reactive Protein 14.8 H, Total Protein 7.5, Albumin 4.5, Globulin 3.0, Albumin/Globulin Ratio 1.5 02/05/21 06:06: WBC 14.6 H, RBC 4.66, Hgb 13.7, Hct 41.8, MCV 89.7, MCH 29.4, MCHC 32.8, RDW 13.4, Plt Count 262, MPV 8.0, Neut % (Auto) 85.7 H, Lymph % (Auto) 7.9 L, [place] % (Auto) 4.0, Eos % (Auto) 1.9, Baso % (Auto) 0.4, Neut # (Auto) 12.5 H, Lymph # (Auto) 1.2, [place] # (Auto) 0.6, Eos # (Auto) 0.3, Baso # (Auto) 0.1, Total Counted 100, Neutrophils % (Manual) 85 H, Lymphocytes % (Manual) 9 L, Monocytes % (Manual) 5, Eosinophils % (Manual) 1, Platelet Estimate Normal, RBC Morphology Normal 02/05/21 06:06: Lactate 3.8 H 02/05/21 06:06: ESR 11 02/05/21 06:30: POC Glucose 159 H Result diagrams: 02/05/21 06:06 02/05/21 06:05 Orders (Tests/Meds): ED MEDICATIONS Discontinued Medications Generic Name Dose Route Start Last Admin Trade Name Sherry PRN Reason Stop Dose Admin Acetaminophen 1,000 mg 02/05/21 06:34 Acetaminophen 500mg Tab PO 02/05/21 06:35 ONCE ONE Dexamethasone Sodium Phosphate 10 mg 02/05/21 06:27 Dexamethasone 4mg/Ml 1ml Vial
[2021-02-05 06:40] LABS: POC Glucose,Bedside 159 (70-110)
[2021-02-05 06:48] LABS: MANUAL DIFFERENTIAL MANUAL DIFFERENTIAL (MANUAL DIFF)
[2021-02-05 06:52] LABS: Basophils # 0.1 K/mm3 (0-0.2); Basophils % 0.4 % (0.1-2.0); Eosinophils # 0.3 K/mm3 (0.0-0.4); Eosinophils % 1.9 % (0.1-12.0); Hematocrit 41.8 % (37.0-47.0); Hemoglobin 13.7 g/dL (12.2-16.2); Lymphocytes # 1.2 K/mm3 (0.7-4.5); Lymphocytes % 7.9 % (10-50); Mean Corpuscular HGB Conc 32.8 g/dL (31.8-35.4); Mean Corpuscular Hemoglobin 29.4 pg (27.0-31.2); Mean Corpuscular Volume 89.7 fl (81-99); Monocytes # 0.6 K/mm3 (0.1-1.0); Neutrophils # 12.5 K/mm3 (1.8-7.8); Neutrophils % 85.7 % (37.0-80.0); Platelet Count 262 K/mm3 (142-424); Red Blood Count 4.66 M/mm3 (4.20-5.40); Red Cell Distribution Width 13.4 % (11.5-17.5); White Blood Count 14.6 K/mm3 (4.8-10.8)
[2021-02-05 06:59] LABS: Chloride 99 mmol/L (98-107)
[2021-02-05 07:00] LABS: Potassium 4.3 mmoL/L (3.5-5.1); Sodium 138 mmol/L (136-145)
[2021-02-05 07:02] LABS: Alanine Aminotransferase 28 U/L (12-78); Alkaline Phosphatase 94 U/L (38-126); Aspartate Amino Transferase 37 U/L (14-36); Bilirubin,Total 0.5 mg/dl (0.2-1.3); Blood Urea Nitrogen 25 mg/dl (7-17); Creatinine Clearance Estimated 42 mL/min (50-200); Estimated Glomerular Filt Rate 40 ml/min (>60); GFR (African American) 48 ML/MIN (>60)
[2021-02-05 07:03] LABS: Albumin Level 4.5 g/dl (3.5-5.0); Albumin/Globulin Ratio 1.5 (1.1-1.8); Anion Gap 17.3 mEq/L (5-15); Calcium 9.1 mg/dl (8.4-10.2); Carbon Dioxide 26 mmol/L (22.0-30.0); Glucose 167 mg/dl (74-100); Total Protein,Serum 7.5 g/dl (6.3-8.2)
[2021-02-05 07:08] LABS: C-Reactive Protein 14.8 mg/L (0-4)
[2021-02-05 07:08] LABS: Lactic Acid 3.8 mmol/L (0.7-2.1)
[2021-02-05 07:17] LABS: Troponin I 0.01 ng/ml (0.00-0.034)
[2021-02-05 07:33] LABS: Coronavirus 19, PCR Not Detected (NotDetected); Influenza A, PCR Not Detected (NotDetected); Influenza B, PCR Not Detected (NotDetected)
[2021-02-05 07:38] LABS: Erythrocyte Sedimentation Rate 11 mm/hr (0-30)
--- NOTE | 2021-02-05 07:39 | PC.NURSE ---
lab states covid swab is going on analyzer now, states will be approx 25 minutes for results
[2021-02-05 07:43] LABS: Eosinophils % 1 % (0-3); Lymphocytes % 9 % (10-50); Monocytes % 5 % (2-9); Neutrophils % 85 % (42-76); Total Cells Counted 100
[2021-02-05 07:44] LABS: Platelet Estimate Normal
[2021-02-05 07:45] LABS: RBC Morphology Normal
--- NOTE | 2021-02-05 08:04 | PC.NURSE ---
notified care management of admission, spoke with Cyndee
[2021-02-05 08:51] LABS: Procalcitonin 0.083 ng/mL (0.0-2.0)
--- NOTE | 2021-02-05 09:45 | HMH.PHAVTE ---
[facility] Pharmacy VTE Monitoring - Patient Demographics Admission date: 02/05/21 Report Date: 02/05/21 Time: 09:45 Allergies/Adverse Reactions: Patient Allergies hydralazine Allergy (Severe, Verified 12/17/20 11:32) throat swelling lisinopril Allergy (Severe, Verified 12/17/20 11:32) throat swelling amlodipine Allergy (Mild, Verified 12/17/20 11:32) Unknown allergy reaction candesartan Adverse Reaction (Intermediate, Verified 12/17/20 11:32) hyperkalemia telmisartan Adverse Reaction (Mild, Verified 12/17/20 11:32) Unknown allergy reaction Height: 1.57 m Weight: 72.575 kg Patient Problems: Current Active Problems CAP (community acquired pneumonia) (Acute) Severe sepsis with acute organ dysfunction (Acute) Diabetes mellitus (Chronic) CKD (chronic kidney disease) (Chronic) - VTE Risk Labs: VTE Related Lab Results Hgb 13.7 g/dL (12.2-16.2) 02/05/21 06:06 Hct 41.8 % (37.0-47.0) 02/05/21 06:06 Plt Count 262 K/mm3 (142-424) 02/05/21 06:06 BUN 25 mg/dl (7-17) H 02/05/21 06:05 Creatinine 1.30 mg/dl (0.52-1.04) H 02/05/21 06:05 Estimated Creat Clear 42 mL/min (50-200) 02/05/21 06:05 Was VTE Risk Assessment Performed: No Clinical Trial Participant: No - Prophylaxis VTE Prophylaxis Ordered?: Yes Types of VTE Prophylaxis: TEDS Knee High Location of Applied Device: Bilateral Lower Extremeties
--- NOTE | 2021-02-05 09:46 | HMH.PHAINT ---
MEDICATION RECONCILIATION COMPLETE USING LIST FROM MD OFFICE VISIT AND EXTERNAL PHARMACY FILL HISTORY.
--- NOTE | 2021-02-05 09:46 | PC.NURSE ---
attempted to call report to second floor, receiving nurse did not answer
[2021-02-05 09:53] LABS: Troponin I 0.09 ng/ml (0.00-0.034)
--- NOTE | 2021-02-05 10:04 | PC.NURSE ---
report called to radha colby on second floor at this time
[2021-02-05 10:46] LABS: Reflex Lactic Add Lactic Reflex
[2021-02-05 11:31] LABS: Lactic Acid Follow Up (RFLX 1) 1.9 mmol/L (0.7-2.1)
--- NOTE | 2021-02-05 12:31 | HMH.HP ---
*Admission Date: 02/05/21 *Chief complaint: Shortness of breath *History of present illness: Patient presented to the emergency department overnight after developing acute onset of cough that was unrelenting with associated shortness of breath and fevers yesterday. Patient was found to have right lower lobe pneumonia. She has been started on Rocephin and azithromycin and admitted for treatment of pneumonia. Patient was hypoxic in the emergency department which required application of nasal cannula which is improved patient's oxygenation. At the time of interview patient is awake and alert. She reports feeling better than she did overnight. Patient's Covid and flu test were negative [facility] History I have reviewed the patient's past medical history: Yes Medical History: Reports:: Cancer, Coronary Artery Disease, Diabetes Mellitus Type 2, Heart Murmur, Hyperlipidemia, Hypertension, Renal Disease, Valvular Heart Disease Denies:: Diabetes Mellitus Type 1, Internal Pacemaker, MRSA, Seizures *Have you ever received a pneumonia vaccine?: No *Have you received a flu vaccine this season?: Yes Other Medical History: Reports: Arthritis. Denies: Blood Transfusion Reaction Other Surgeries: Yes: No Previous Surgery, Cardiac Catheterization, Colonoscopy, Dilation and Curettage, Hysterectomy-Total, Other. No: Pacemaker Amputation: No Fractures: No - *Social History Smoking Status: Never smoker Alcohol Intake: never Substance Use Type: denies use *Occupational Status:: retired Housing: house Household Members: other *Travel in the last 8 weeks: None Family Hx:: Cancer, Diabetes Review of Systems - Constitutional Reports body ache(s), Reports chills, Reports fever(s) - Eyes Denies blurry vision - ENT Denies abnormal hearing - *Cardiovascular Denies chest pain, Denies chest pain at rest, Denies chest pain with activity - *Respiratory Reports chest congestion, Reports cough, Reports shortness of breath, Denies change in phlegm color - *Gastrointestinal Denies belching - *Genitourinary Denies difficulty urinating - *Musculoskeletal Denies joint pain, Denies back pain - *Neurologic Denies abnormal walking, Denies abnormal movements, Denies unsteadiness, Denies headache(s), Denies seizure-like activity Meds Home Medications Medication Instructions Recorded Confirmed Type Aspirin [Aspirin 81mg chewable 81 mg PO DAILY 02/16/17 02/05/21 History tab] ergocalciferol (vitamin D2) 1,250 50,000 unit PO Q2W cap 08/25/18 02/05/21 History mcg (50,000 unit) capsule isosorbide mononitrate 30 mg 30 mg PO BID tab 11/21/18 02/05/21 History tablet,extended release 24 hr metoprolol succinate 100 mg 100 mg PO DAILY tab 11/24/18 02/05/21 History tablet,extended release 24 hr clonidine HCl 0.1 mg tablet 0.1 mg PO TID #90 tab 06/26/19 02/05/21 Rx Metformin HCl [Fortamet] 500 mg PO BID 12/06/19 02/05/21 History hydroCHLOROthiazide 12.5 mg PO DAILY 02/05/21 02/05/21 History [Hydrochlorothiazide] Allergies Allergy/AdvReac Type Severity Reaction Status Date / Time hydralazine Allergy Severe throat Verified 12/17/20 11:32 swelling lisinopril Allergy Severe throat Verified 12/17/20 11:32 swelling amlodipine Allergy Mild Unknown Verified 12/17/20 11:32 allergy reaction candesartan AdvReac Intermediate hyperkalemi Verified 12/17/20 11:32 a telmisartan AdvReac Mild Unknown Verified 12/17/20 11:32 allergy reaction Exam Vital signs and Labs for Last 24 Hours: Temp Pulse Resp BP Pulse Ox 99.3 F 75 19 185/76 H 98 02/05/21 10:41 02/05/21 10:41 02/05/21 10:41 02/05/21 10:41 02/05/21 10:41 Laboratory Results - last 24 hr 02/05/21 06:00: SARS-CoV-2 (PCR) Not detected, Influenza A Untype (PCR) Not detected, Influenza Type B (PCR) Not detected 02/05/21 06:05: Sodium 138, Potassium 4.3, Chloride 99, Carbon Dioxide 26, Anion Gap 17.3 H, BUN 25 H, Creatinine 1.30 H, Estimat
[2021-02-05 13:53] LABS: Troponin I 0.08 ng/ml (0.00-0.034)
[2021-02-05 16:56] LABS: POC Glucose,Bedside 217 (70-110)
[2021-02-05 21:36] LABS: POC Glucose,Bedside 184 (70-110)
[2021-02-06] VITALS: BP 136/59; PULSE 74; RESP 18; TEMP 36.6; O2SAT 98
--- NOTE | 2021-02-06 00:31 | PC.NURSE ---
Patient reports BM on 02/05/21
[2021-02-06 04:00] VITALS: BP 138/54; PULSE 61; RESP 16; TEMP 36.7; O2SAT 95
[2021-02-06 05:00] VITALS: BMI 29.8
--- NOTE | 2021-02-06 05:38 | PC.NURSE ---
Patient has been titrated down on her oxygen requirement. Patient is currently on room air with O2 sats between 93-96%. Will continue to monitor.
[2021-02-06 06:38] VITALS: PULSE 96; O2SAT 95
--- NOTE | 2021-02-06 07:00 | XR_ITS ---
PROCEDURE INFORMATION: Exam: XR Chest Exam date and time: 02/06/2021 7:00 AM Age: 75 years old Clinical indication: Shortness of breath; Additional info: SOB TECHNIQUE: Imaging protocol: XR of the chest. Views: 1 view. COMPARISON: CR XR CHEST PORTABLE 02/05/2021 6:32 AM FINDINGS: Lungs: Airspace consolidation in the right upper and middle lobes, again noted. Findings are more pronounced compared to the prior study. The left lung is clear. Pleural spaces: Unremarkable. No pleural effusion. No pneumothorax. Heart/Mediastinum: Unremarkable. No cardiomegaly. Bones/joints: Unremarkable. IMPRESSION: Right-sided airspace consolidation more pronounced in the interval is most likely pneumonia.
--- NOTE | 2021-02-06 07:51 | HMH.DCSUM ---
General - General Admission date:: 02/05/21 Discharge date: 02/06/21 HPI HPI: Patient presented to the emergency department overnight after developing acute onset of cough that was unrelenting with associated shortness of breath and fevers yesterday. Patient was found to have right lower lobe pneumonia. She has been started on Rocephin and azithromycin and admitted for treatment of pneumonia. Patient was hypoxic in the emergency department which required application of nasal cannula which is improved patient's oxygenation. At the time of interview patient is awake and alert. She reports feeling better than she did overnight. Patient's Covid and flu test were negative Hospital Course Hospital Course: Patient was admitted for treatment of right lower lobe pneumonia. Patient was placed on Rocephin and azithromycin. Patient defervesced in the ER and remained fever free during her hospitalization. Cough improved and brief need for supplemental oxygen resolved in less than 24 hours. Patient patient's cough improved, energy level improved, she remained afebrile, O2 sats were appropriate on room air beginning overnight the morning of the . Patient was discharged home. Patient will finish her course of antibiotics. She will follow up in the office in 1 week Objective Vital signs: Temp Pulse Resp BP Pulse Ox 98.0 F 96 H 16 138/54 L 95 02/06/21 04:00 02/06/21 06:38 02/06/21 04:00 02/06/21 04:00 02/06/21 06:38 no acute distress - *Routine Respiratory Exam Present: distant breath sounds - *Routine Cardiovascular Exam Present: RRR - *Routine Abdominal Exam Present: soft, normoactive bowel sounds. Absent: tenderness Results Labs on day of discharge: Labs from last 24 hours 02/05/21 02/05/21 02/05/21 21:25 16:37 12:55 POC Glucose 184 H 217 H Lactate Troponin I 0.08 H Procalcitonin SARS-CoV-2 (PCR) Influenza A Untype (PCR) Influenza Type B (PCR) 02/05/21 02/05/21 02/05/21 11:00 09:20 06:06 POC Glucose Lactate 1.9 Troponin I 0.09 H Procalcitonin 0.083 SARS-CoV-2 (PCR) Influenza A Untype (PCR) Influenza Type B (PCR) 02/05/21 06:00 POC Glucose Lactate Troponin I Procalcitonin SARS-CoV-2 (PCR) Not detected Influenza A Untype (PCR) Not detected Influenza Type B (PCR) Not detected DS: Diagnosis - Discharge Diagnosis (1) CAP (community acquired pneumonia) Status: Acute (2) CKD (chronic kidney disease) Status: Chronic (3) Diabetes mellitus Status: Chronic (4) CAD (coronary artery disease) Status: Chronic (5) HTN (hypertension) Status: Chronic Discharge Plan - Patient Discharge Instructions ACTIVITY: Continue current activity DIET: continue same diet Patient Instructions: DI for Kidney Failure, DI for Pneumonia -- Adult, Acute Kidney Injury, DI for Sepsis -- Adult - Follow up Plan Follow up with: Jason Cabrera MD [Staff Physician] - 1 week Disposition: Home, Self-Care Condition at discharge:: Improved Home Medications: Home Medications Medication Instructions Recorded Confirmed Type Aspirin [Aspirin 81mg chewable 81 mg PO DAILY 02/16/17 02/05/21 History tab] ergocalciferol (vitamin D2) 1,250 50,000 unit PO Q2W cap 08/25/18 02/05/21 History mcg (50,000 unit) capsule isosorbide mononitrate 30 mg 30 mg PO BID tab 11/21/18 02/05/21 History tablet,extended release 24 hr metoprolol succinate 100 mg 100 mg PO DAILY tab 11/24/18 02/05/21 History tablet,extended release 24 hr clonidine HCl 0.1 mg tablet 0.1 mg PO TID #90 tab 06/26/19 02/05/21 Rx Metformin HCl [Fortamet] 500 mg PO BID 12/06/19 02/05/21 History hydroCHLOROthiazide 12.5 mg PO DAILY 02/05/21 02/05/21 History [Hydrochlorothiazide] Cefdinir [Omnicef 300mg Capsule] 300 mg PO BID #12 cap 02/06/21 Rx Prescriptions/Medication Reconciliation: New Cefdinir [Omnicef 300mg Capsule
[2021-02-06 08:00] VITALS: BP 175/77; PULSE 93; RESP 18; TEMP 36.7; O2SAT 96
[2021-02-06 08:00] LABS: Basophils # 0.1 K/mm3 (0-0.2); Basophils % 0.4 % (0.1-2.0); Eosinophils # 0.2 K/mm3 (0.0-0.4); Eosinophils % 1.3 % (0.1-12.0); Hematocrit 37.7 % (37.0-47.0); Lymphocytes # 2.1 K/mm3 (0.7-4.5); Lymphocytes % 13.6 % (10-50); Mean Corpuscular HGB Conc 31.8 g/dL (31.8-35.4); Mean Corpuscular Volume 94.1 fl (81-99); Monocytes # 0.4 K/mm3 (0.1-1.0); Monocytes % 2.6 % (1.7-9.3); Neutrophils # 12.8 K/mm3 (1.8-7.8); Neutrophils % 82.2 % (37.0-80.0); Platelet Count 243 K/mm3 (142-424); Red Cell Distribution Width 13.9 % (11.5-17.5); White Blood Count 15.5 K/mm3 (4.8-10.8)
[2021-02-06 08:01] LABS: MANUAL DIFFERENTIAL MANUAL DIFFERENTIAL (MANUAL DIFF)
[2021-02-06 08:07] LABS: Chloride 104 mmol/L (98-107)
[2021-02-06 08:08] LABS: Potassium 3.6 mmoL/L (3.5-5.1); Sodium 139 mmol/L (136-145)
[2021-02-06 08:11] LABS: Anion Gap 15.6 mEq/L (5-15); Blood Urea Nitrogen 27 mg/dl (7-17); Calcium 8.2 mg/dl (8.4-10.2); Carbon Dioxide 23 mmol/L (22.0-30.0); Creatinine Clearance Estimated 42 mL/min (50-200); Estimated Glomerular Filt Rate 40 ml/min (>60); GFR (African American) 48 ML/MIN (>60); Glucose 253 mg/dl (74-100); Magnesium 1.2 mg/dl (1.6-2.3)
[2021-02-06 08:29] LABS: Eosinophils % 2 % (0-3); Lymphocytes % 13 % (10-50); Monocytes % 3 % (2-9); Neutrophils % 82 % (42-76); Platelet Estimate Normal; RBC Morphology Normal; Total Cells Counted 100
[2021-02-06 21:10] LABS: POC Glucose,Bedside 164 (70-110)
== END 2021-02-06 10:35 | disposition home or self-care (01) | DRG 195 ==
LOC: ER 06:16 → 2ND 08:10
PROVIDERS: Admitting Provider Family Medicine; Emergency Provider Emergency Medicine; PCP Nurse Practitioner Family; Visit Provider Family Medicine
DX: J18.8 Other pneumonia, unspecified organism (principal); I25.10 Atherosclerotic heart disease of native coronary artery without angina pectoris; E11.22 Type 2 diabetes mellitus with diabetic chronic kidney disease; N18.9 Chronic kidney disease, unspecified; Z79.84 Long term (current) use of oral hypoglycemic drugs; Z20.822 Contact with and (suspected) exposure to COVID-19
CPT/HCPCS: 36415; 71045; 80048; 80053; 82962; 83605; 83735; 84145; 84484; 85007; 85014; 85018; 85025; 85048; 85049; 85651; 86140; 87040; 93005; 94640; 94760; 94761; 96365; 96375; 99285; C9803; U0003; U0005

== ENCOUNTER → 2021-06-11 12:48 | Outpatient (CLI) | payer MEDICARE, MEDICAID, SELFPAY ==
[2021-06-11 12:58] LABS: MANUAL DIFFERENTIAL MANUAL DIFFERENTIAL (MANUAL DIFF)
[2021-06-11 13:27] LABS: Basophils # 0.1 K/mm3 (0-0.2); Basophils % 0.9 % (0.1-2.0); Eosinophils # 0.7 K/mm3 (0.0-0.4); Eosinophils % 6.3 % (0.1-12.0); Hematocrit 38.5 % (37.0-47.0); Hemoglobin 12.8 g/dL (12.2-16.2); Lymphocytes # 2.8 K/mm3 (0.7-4.5); Mean Corpuscular HGB Conc 33.3 g/dL (31.8-35.4); Mean Platelet Volume 7.6 fl (7.4-10.4); Monocytes # 0.6 K/mm3 (0.1-1.0); Monocytes % 5.4 % (1.7-9.3); Neutrophils # 6.9 K/mm3 (1.8-7.8); Neutrophils % 62.4 % (37.0-80.0); Platelet Count 272 K/mm3 (142-424); Red Blood Count 4.27 M/mm3 (4.20-5.40); Red Cell Distribution Width 13.7 % (11.5-17.5); White Blood Count 11.1 K/mm3 (4.8-10.8)
[2021-06-11 16:51] LABS: Chloride 104 mmol/L (98-107)
[2021-06-11 16:52] LABS: Potassium 4.3 mmoL/L (3.5-5.1); Sodium 138 mmol/L (136-145)
[2021-06-11 16:54] LABS: Blood Urea Nitrogen 27 mg/dl (7-17); Estimated Glomerular Filt Rate 40 ml/min (>60); GFR (African American) 48 ML/MIN (>60)
[2021-06-11 16:55] LABS: Anion Gap 17.3 mEq/L (5-15); Calcium 9.3 mg/dl (8.4-10.2); Carbon Dioxide 21 mmol/L (22.0-30.0); Glucose 130 mg/dl (74-100)
[2021-06-11 18:15] LABS: Eosinophils % 3 % (0-3); Lymphocytes % 31 % (10-50); Monocytes % 6 % (2-9); Neutrophils % 56 % (42-76); Platelet Estimate Normal; Total Cells Counted 100
== END ==
PROVIDERS: Visit Provider Urology
DX: N34.3 Urethral syndrome, unspecified (principal); Z01.812 Encounter for preprocedural laboratory examination; Z11.52 Encounter for screening for COVID-19
CPT/HCPCS: 36415; 80048; 85007; 85014; 85018; 85048; 85049; C9803; U0003; U0005

== ENCOUNTER 2021-06-13 09:00 | Day surgery (SDC) | payer MEDICARE, MEDICAID, SELFPAY ==
[2021-06-11 16:37] VITALS: BMI 28.5
[2021-06-13 09:20] VITALS: BP 204/90; PULSE 78; RESP 18; TEMP 36.3; O2SAT 97
[2021-06-13 09:38] LABS: POC Glucose,Bedside 129 (70-110)
[2021-06-13 11:30] VITALS: BP 127/64; PULSE 73; RESP 18; TEMP 36.1; O2SAT 97
--- NOTE | 2021-06-13 11:35 | P.PN_ITS ---
[facility] Anesthesia Checklist - Structural Data Admitted From: Home Planned Operative Procedure/s: cysto w dilation Consent for Planned Operative Procedure(s) Verified: Yes - Additional verifications Anesthesia Reactions: No Hx Blood Transfusions: No Blood Transfusion Reaction: No - Airway Assessment C-Spine Mobility Assessed: Yes TMJ Mobility Assessed: Yes Dentition: Good Dentition - Neurological Assessment Level of Consciousness: Awake, Alert, Appropriate - Anesthesia Plan Anesthesia Risk discussed: Yes Anesthesia Plan: Verified ASA Class: III Anesthesia Type: MAC [facility] History I have reviewed the patient's past medical history: Yes Medical History: Reports:: Cancer (skin cancer), Coronary Artery Disease, Diabetes Mellitus Type 2, Heart Murmur, Hyperlipidemia, Hypertension, Renal Disease, Valvular Heart Disease Denies:: Diabetes Mellitus Type 1, Internal Pacemaker, MRSA, Seizures *Have you ever received a pneumonia vaccine?: No *Have you received a flu vaccine this season?: Yes Other Medical History: Reports: Arthritis. Denies: Blood Transfusion Reaction Anesthesia experience/problems:: none Laterality Cases: Bilateral: Cataract Other Surgeries: Yes: No Previous Surgery, Cardiac Catheterization, Colonoscopy, Dilation and Curettage, Hysterectomy-Total, Other. No: Pacemaker Amputation: No Fractures: No - *Social History Last grade of school completed: 7th or 8th Smoking Status: Never smoker Alcohol Intake: never Substance Use Type: denies use *Occupational Status:: unemployed Housing: house Household Members: none *Travel in the last 8 weeks: None Family Hx:: No significant family history
[2021-06-13 11:45] VITALS: BP 137/66; PULSE 68; RESP 18; TEMP 36.1; O2SAT 97
--- NOTE | 2021-06-13 11:47 | HMH.OPNOTE ---
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 She presents today for urethral dilation under MAC. She states that dilation improves her symptoms significantly however she cannot tolerate it under local. Operative findings:: Normal bladder mucosa. Operative note:: Patient taken to the operating suite after informed consent was obtained. She was placed on the operating table in supine position and monitored anesthesia care administered. Preoperative antibiotics and sequential compression devices placed. She was then placed into the dorsal lithotomy position prepped draped in the standard surgical fashion. A 22 Sterling passed into the urethra and into the bladder without difficulty. The bladder was examined in a systematic fashion with a 30 and 70 lenses. There is no evidence of mucosal normalities, stones, trabeculation or cellule formation. The ureteral orifices in their normal anatomic position with clear efflux of urine. The bladder neck and urethra were normal. The cystoscope removed and the urethra was dilated with a 24, 26 and 28 Indonesian female sounds. Urojet placed afterwards for comfort measures. She tolerated well. He was discharged home with 3 days of antibiotics and a new prescription for oxybutynin as she stated that she had urinary frequency and urgency in the preoperative room today. Condition: stable Disposition: same day Specimens:: None Complications:: None
[2021-06-13 12:00] VITALS: BP 159/77; PULSE 67; RESP 18; TEMP 36.1; O2SAT 97
[2021-06-13 12:15] VITALS: BP 159/79; PULSE 68; RESP 18; TEMP 36.1; O2SAT 98
[2021-06-13 12:46] VITALS: TEMP 38
== END 2021-06-13 12:15 | disposition home or self-care (01) ==
LOC: OR 09:01
PROVIDERS: PCP Nurse Practitioner Family; Visit Provider Urology
PROC: 0TJB8ZZ Inspection of Bladder, Via Natural or Artificial Opening Endoscopic (ICD-10-PCS; CPT 52000; principal; 2021-06-13 11:00)
DX: N34.3 Urethral syndrome, unspecified (principal); I25.10 Atherosclerotic heart disease of native coronary artery without angina pectoris; E11.9 Type 2 diabetes mellitus without complications; E78.5 Hyperlipidemia, unspecified; I10 Essential (primary) hypertension; R01.1 Cardiac murmur, unspecified; N28.9 Disorder of kidney and ureter, unspecified; Z85.828 Personal history of other malignant neoplasm of skin; M19.90 Unspecified osteoarthritis, unspecified site; Z88.8 Allergy status to other drugs, medicaments and biological substances; Z79.82 Long term (current) use of aspirin; Z79.899 Other long term (current) drug therapy
CPT/HCPCS: 52344; 82962

== ENCOUNTER 2021-07-15 13:53 | Inpatient (IN) | payer MEDICARE, MEDICAID, SELFPAY ==
[2021-07-15] VITALS (21 sets, daily range): BP systolic 103–171; BP diastolic 63–125; PULSE 58–158; RESP 14–20; TEMP 36.4–37.1; O2SAT 95–99; BMI 25.6; BMI 26.1
--- NOTE | 2021-07-15 14:02 | ECG_ITS ---
APPROVED REPORT Exam: Resting ECG HR:151 bpm ECG Measurements Heart Rate 151 AXES QRSd 127 QRS 256 QT 307 T 67 QTc 393 Conclusion ATRIAL FLUTTER/TACHYCARDIA WITH RAPID VENTRICULAR RESPONSE RIGHT AXIS DEVIATION [QRS AXIS > 100] SEPTAL MYOCARDIAL INFARCTION , OF INDETERMINATE AGE [40+ ms Q WAVE IN V1/V2] MODERATE T-WAVE ABNORMALITY, CONSIDER LATERAL ISCHEMIA [-0.1+ mV T-WAVE IN I/aVL/V5/V6] CRITICAL TEST RESULT UNCONFIRMED REPORT Electronically signed by : Jason Rutherford MD 07/15/2021 21:10:59
--- NOTE | 2021-07-15 14:05 | XR_ITS ---
FINAL REPORT CLINICAL HISTORY: weakness COMPARISON: February 06, 2021 FINDINGS: A single portable view of the chest was obtained. The heart size and pulmonary vascularity are within normal limits. The mediastinum is within normal limits. There are mild bibasilar pulmonary opacities which may represent atelectasis or pneumonia. The bony thorax is intact. IMPRESSION: Mild bibasilar atelectasis or pneumonia. Reviewed, Interpreted and Dictated by Cesar Felix III, MD Transcribed by Elisha Jeffrey Authenticated by Cesar Felix III, MD on 07/15/2021 03:48:35 PM [facility]
--- NOTE | 2021-07-15 14:14 | HMH.EDGENADL ---
ED Disposition Clinical Impression: New onset atrial fibrillation, Atrial fibrillation with RVR, Epigastric pain Disposition: Admitted as Observation Condition on Discharge: Fair Referrals: Antonella Mena APRN [Primary Care Provider] - - Critical Care Critical Care Time: Yes Attestation: On 07/15/21, the high probability of a clinically significant, sudden or life threatening deterioration of the following system(s) required my full and direct attention, intervention and personal management. The time I documented below is in addition to time spent performing reported procedures but includes the following listed in this critical care notation. Total Critical Care Time: 30 Vital system(s) involved:: Circulatory Failure My critical care processes included: Assessment & monitoring of V/S, Initial and Re-exams, Data Review/Interpretation, Coordinating Care, Medication Orders and management, Documentation Medical Decision Making - Medical Records Medical records reviewed: Yes: I reviewed the patient's medical records. MR Comment: Reviewed recent field prescriptions. Recently started on indomethacin 07/03/2021 and prednisone 07/10/2021. - Bharath Inquiry Pt receiving controlled substance: No Vital Signs: 07/15/21 14:00 07/15/21 14:13 07/15/21 14:14 Temperature 97.5 F L Temperature Source Oral Pulse Rate 112 H 158 H Pulse Rate [Right] 151 H Respiratory Rate 18 17 18 Blood Pressure 144/96 H 118/102 H Blood Pressure [Right Arm] 140/125 H Blood Pressure Mean 117 107 Blood Pressure Mean [Right Arm] 130 Blood Pressure Position 02 Sat by Pulse Oximetry 98 96 97 07/15/21 14:37 07/15/21 14:43 07/15/21 14:51 Temperature Temperature Source Pulse Rate 149 H 67 87 Pulse Rate [Right] Respiratory Rate 17 14 18 Blood Pressure 103/65 L 116/70 137/87 Blood Pressure [Right Arm] Blood Pressure Mean 88 83 96 Blood Pressure Mean [Right Arm] Blood Pressure Position Sitting 02 Sat by Pulse Oximetry 97 97 98 07/15/21 16:10 Temperature Temperature Source Pulse Rate 106 H Pulse Rate [Right] Respiratory Rate 18 Blood Pressure 146/78 H Blood Pressure [Right Arm] Blood Pressure Mean 129 Blood Pressure Mean [Right Arm] Blood Pressure Position 02 Sat by Pulse Oximetry 99 - Lab Data Lab Results 07/15/21 14:15: WBC 19.6 H, RBC 5.21, Hgb 15.7, Hct 47.1 H, MCV 90.5, MCH 30.1, MCHC 33.2, RDW 13.5, Plt Count 628 H, MPV 8.1, Neut % (Auto) 71.2, Lymph % (Auto) 19.8, [place] % (Auto) 6.0, Eos % (Auto) 1.9, Baso % (Auto) 1.2, Neut # (Auto) 14.0 H, Lymph # (Auto) 3.9, [place] # (Auto) 1.2 H, Eos # (Auto) 0.4, Baso # (Auto) 0.2 07/15/21 14:15: Sodium 135 L, Potassium 4.1, Chloride 99, Carbon Dioxide 22, Anion Gap 18.1 H, BUN 39 H, Creatinine 1.30 H, Estimated Creat Clear 36, Estimated GFR 40 L, Est GFR ( Amer) 48 L, Glucose 186 H, Calcium 9.3, Troponin I 0.02 07/15/21 14:15: PT 11.3, INR 1.00, APTT 24.7 07/15/21 14:15: TSH 2.19, Free T4 Index 5.3 L, Thyroxine (T4) 15.0 H, T3 Uptake 35 07/15/21 14:25: Total Bilirubin 0.4, Direct Bilirubin 0.0, Conjugated Bilirubin 0.0, Indirect Bilirubin 0.4, Unconjugated Bilirubin 0.7, AST 26, ALT 22, Alkaline Phosphatase 109, Total Protein 7.0, Albumin 4.1, Lipase 128 07/15/21 14:35: SARS-CoV-2 (PCR) Not detected, Influenza A Untype (PCR) Not detected, Influenza Type B (PCR) Not detected Result diagrams: 07/15/21 14:15 07/15/21 14:15 Orders (Tests/Meds): ED MEDICATIONS Generic Name Dose Route Start Last Admin Trade Name Freq PRN Reason Stop Dose Admin Diltiazem HCl 100 mg/ Sodium 100 mls @ 5 mls/hr 07/15/21 14:45 07/15/21 14:43 Chloride IV 08/14/21 14:44 5 mls/hr .Q20H PENELOPE Administration Protocol Rivaroxaban 15 mg 07/15/21 17:30 Rivaroxaban 15mg Tablet PO 06/30/22 17:29 QPMWITHMEAL PENELOPE Sodium Chloride 10 ml 07/15/21 14:05 Sodium Chloride 0.9% 10ml Flush Syringe IV 08/14/21 14:04 NEEDED PRN Maintain IV Site S
--- NOTE | 2021-07-15 14:21 | PC.NURSE ---
ED MD at BS; family at BS
[2021-07-15 14:31] LABS: Basophils # 0.2 K/mm3 (0-0.2); Basophils % 1.2 % (0.1-2.0); Eosinophils # 0.4 K/mm3 (0.0-0.4); Eosinophils % 1.9 % (0.1-12.0); Hematocrit 47.1 % (37.0-47.0); Hemoglobin 15.7 g/dL (12.2-16.2); Lymphocytes # 3.9 K/mm3 (0.7-4.5); Lymphocytes % 19.8 % (10-50); Mean Corpuscular HGB Conc 33.2 g/dL (31.8-35.4); Mean Corpuscular Hemoglobin 30.1 pg (27.0-31.2); Mean Corpuscular Volume 90.5 fl (81-99); Mean Platelet Volume 8.1 fl (7.4-10.4); Monocytes # 1.2 K/mm3 (0.1-1.0); Neutrophils % 71.2 % (37.0-80.0); Platelet Count 628 K/mm3 (142-424); Red Blood Count 5.21 M/mm3 (4.20-5.40); Red Cell Distribution Width 13.5 % (11.5-17.5); White Blood Count 19.6 K/mm3 (4.8-10.8)
--- NOTE | 2021-07-15 14:31 | PC.NURSE ---
Dr. Portillo speaking with REMEDIOS Islas at this time
[2021-07-15 14:36] LABS: Anion Gap 18.1 mEq/L (5-15); Blood Urea Nitrogen 39 mg/dl (7-17); Calcium 9.3 mg/dl (8.4-10.2); Carbon Dioxide 22 mmol/L (22.0-30.0); Chloride 99 mmol/L (98-107); Creatinine Clearance Estimated 36 mL/min (50-200); Estimated Glomerular Filt Rate 40 ml/min (>60); GFR (African American) 48 ML/MIN (>60); Glucose 186 mg/dl (74-100); Potassium 4.1 mmoL/L (3.5-5.1); Sodium 135 mmol/L (136-145)
--- NOTE | 2021-07-15 14:36 | PC.NURSE ---
JAYMIE Rice at
[2021-07-15 14:37] LABS: Activated Partial Thrombo Time 24.7 seconds (22.8-30.6); Prothrombin Time 11.3 seconds (10.1-12.5)
[2021-07-15 14:38] LABS: Coronavirus 19, PCR Not Detected (NotDetected); Influenza A, PCR Not Detected (NotDetected); Influenza B, PCR Not Detected (NotDetected)
[2021-07-15 14:42] LABS: MANUAL DIFFERENTIAL MANUAL DIFFERENTIAL (MANUAL DIFF)
--- NOTE | 2021-07-15 14:46 | US_ITS ---
FINAL REPORT CLINICAL HISTORY: epigastric pain FINDINGS: Sonographic images of the right upper quadrant were obtained. The pancreas is partially obscured. There is fatty infiltration of the liver. There is a small amount of sludge in the gallbladder. There is no evidence of biliary ductal dilatation.The common duct measures 5mm. Limited images of the right kidney are unremarkable. IMPRESSION: Small amount of sludge. Fatty liver. Reviewed, Interpreted and Dictated by Cesar Felix III, MD Transcribed by Krystal Bah Authenticated by Cesar Felix III, MD on 07/15/2021 04:23:02 PM [facility]
--- NOTE | 2021-07-15 14:46 | CT_ITS ---
FINAL REPORT TECHNIQUE: Axial images through the abdomen and pelvis were performed without contrast. This study was performed with techniques to keep radiation doses as low as reasonably achievable, (ALARA). Individualized dose reduction techniques using automated exposure control or adjustment of mA and/or kV according to the patient's size were employed. CLINICAL HISTORY: epigastric pain FINDINGS: ABDOMEN: There is mild atelectasis or scarring the left lung base. The heart size is normal. There is mild fatty infiltration of the liver. The spleen is normal. There is a left adrenal nodule measuring 12 mm which is nonspecific, favor an adenoma. Moderate vascular calcification is identified. The aorta is normal in caliber. There is no significant free fluid or adenopathy. There is no nephrolithiasis. There is no hydronephrosis. PELVIS: The appendix is unremarkable. There is sigmoid diverticulosis without evidence of diverticulitis. The patient is status post hysterectomy. The urinary bladder is unremarkable. There is no significant free fluid or adenopathy. There are degenerative changes in the both scoliosis of the lumbar spine. IMPRESSION: Mild fatty liver. Sigmoid diverticulosis without evidence of diverticulitis. Reviewed, Interpreted and Dictated by Cesar Felix III, MD Transcribed by Krystal Bah Authenticated by Cesar Felix III, MD on 07/15/2021 04:22:55 PM [facility]
[2021-07-15 14:50] LABS: Troponin I 0.02 ng/ml (0.00-0.034)
--- NOTE | 2021-07-15 14:52 | PC.NURSE ---
REMEDIOS Islas with Cardiology at [facility]
[2021-07-15 14:54] LABS: Free Thyroxine Index 5.3 ug/dL (5.93-13.13); Triiodothryronine (T3) Uptake 35 % (23.5-40.5)
--- NOTE | 2021-07-15 14:57 | HMH.CNCARD ---
History of Present Illness Consult date: 07/15/21 Requesting physician: Andres Lopes Consult reason: chest pain, atrial fibrillation, shortness of breath Chief complaint: Dizziness, shortness of breath, A. fib with RVR Additional Medical History:: 1. History of coronary artery disease A. Cardiac catheterization, 2019, mild nonflow limiting CAD with hyperdynamic EF 2. Hypertension 3. Hyperlipidemia 4. Diabetes mellitus, treated for at least 1 year 5. Atrial fibrillation with a rapid ventricular response, new onset 07/15/2021, CHADS-VASC score of 5 (hypertension, age, diabetes, female). 6. CKD, stage III. A. Creatinine 1.3 and GFR 40, 07/15/2021 History of present illness: States for the past 4 days she has had upper abdominal discomfort and a sensation of lightheadedness, dizziness, presyncope. Denies chest pain or shortness of breath. Denies palpitations. No fever. She has had vomiting the past 3 days. No diarrhea. No urinary symptoms. States that she was started on medications for gout by her primary care provider last week. She is on some oral steroids and another medication. She wonders whether the medications have caused her problems. She has prior cardiac problems. Says that she has a couple of small blockages, but has not had stents or [place]. Noted to be in atrial fibrillation on arrival, no prior history of atrial fibrillation. She has had prior hysterectomy, no other abdominal surgeries. Her tobacco sweeper is Dr. Umana in [place]. The above per DIANA Dudley MD Patient confirms events as noted above with 2 separate episodes of vomiting over 2-day period. Sensation of lightheadedness, dizziness and presyncope occurred within the last 24 hours. She was unable to get into her primary care office with family member deciding to bring her here for further evaluation. Patient noted to be in atrial fibrillation with a rapid ventricular rate at 150 bpm on admission, she has responded well to initial diltiazem bolus and drip with rates now in the 80s but still in atrial fibrillation. Will continue diltiazem drip along with home medication of metoprolol. We will add Xarelto for elevated CHADS2 score. We will obtain an echocardiogram for evaluation of ejection fraction. [facility] History Medical History: Reports:: Cancer (skin cancer), Coronary Artery Disease, Diabetes Mellitus Type 2, Heart Murmur, Hyperlipidemia, Hypertension, Renal Disease, Valvular Heart Disease Denies:: Diabetes Mellitus Type 1, Internal Pacemaker, MRSA, Seizures *Have you ever received a pneumonia vaccine?: No *Have you received a flu vaccine this season?: No Other Medical History: Reports: Arthritis. Denies: Blood Transfusion Reaction Other Surgeries: Yes: No Previous Surgery, Cardiac Catheterization, Colonoscopy, Dilation and Curettage, Hysterectomy-Total, Other. No: Pacemaker Amputation: No Fractures: No - *Social History Smoking Status: Never smoker Alcohol Intake: never Substance Use Type: denies use *Occupational Status:: unemployed Housing: house Household Members: none *Travel in the last 8 weeks: Inside the [place] Family Hx:: No significant family history Meds Home Medications Medication Instructions Recorded Confirmed Type Aspirin [Aspirin 81mg chewable 81 mg PO DAILY 02/16/17 06/11/21 History tab] ergocalciferol (vitamin D2) 1,250 50,000 unit PO Q2W cap 08/25/18 06/11/21 History mcg (50,000 unit) capsule isosorbide mononitrate 30 mg 150 mg PO BID tab 11/21/18 06/11/21 History tablet,extended release 24 hr metoprolol succinate 100 mg 100 mg PO DAILY tab 11/24/18 06/11/21 History tablet,extended release 24 hr clonidine HCl 0.1 mg tablet 0.1 mg PO TID #90 tab 06/26/19 06/11/21 Rx Metformin HCl [Fortamet] 500 mg PO BID 12/06/19 06/11/21 History hydroCHLOROthiazide 12.5 mg PO DAILY 02/05/21 06/11/21 History [Hydrochlorothiazide] Famotidine [Acid Controller] 20 mg PO BID 06/11/21 06/11/21 History
--- NOTE | 2021-07-15 15:00 | CT_ITS ---
FINAL REPORT CLINICAL HISTORY: new onset afib, r/o PE FINDINGS: Thin section axial CT images of the chest were obtained with contrast. 3D reformatted images were also obtained. This study was performed with techniques to keep radiation doses as low as reasonably achievable (ALARA). Individualized dose reduction techniques using automated exposure control or adjustment of mA and/or kV according to the patient's size were employed. There is no evidence of pulmonary embolism. There is no evidence of thoracic aortic aneurysm or dissection. There is no evidence of mediastinal or hilar mass or adenopathy. There is no evidence of pulmonary mass or nodule. No localized inflammatory process is seen within the lungs. There is mild scarring in the lung bases. Limited images of the upper abdomen are unremarkable. IMPRESSION: No evidence of pulmonary embolism. No mass or localized inflammatory process. Reviewed, Interpreted and Dictated by Cesar Felix III, MD Transcribed by Krystal Bah Authenticated by Cesar Felix III, MD on 07/15/2021 04:23:[address] [facility]
--- NOTE | 2021-07-15 15:00 | PC.NURSE ---
pt to CT with technical sales representatives by martin
[2021-07-15 15:03] LABS: Alanine Aminotransferase 22 U/L (12-78); Albumin Level 4.1 g/dl (3.5-5.0); Alkaline Phosphatase 109 U/L (38-126); Aspartate Amino Transferase 26 U/L (14-36); Bilirubin,Indirect 0.4 mg/dL (0.0-0.9); Bilirubin,Total 0.4 mg/dl (0.2-1.3); Bilirubin,Unconjugated 0.7 mg/dL (0.0-1.1); Lipase 128 U/L (23-300)
[2021-07-15 15:07] LABS: Thyroid Stimulating Hormone 2.19 uIU/mL (0.465-4.68)
--- NOTE | 2021-07-15 15:16 | CA_ITS ---
APPROVED REPORT EXAM: Comprehensive 2D, Doppler, and color-flow Echocardiogram Trash Truck Driver: Katiana Power RT(R) Ht: 5 ft 2 in Wt: 140lbs BSA: 1.64 BP: 132/84 mmHg Indications: HTN, DM, HLD, AFIB, CP, Abd pain 2D Dimensions LVOT 1.81 cm (M/F) 1.5-2.5 LVEF (Nunez's) 51.70 % F: 54 - 74 LV Volume 57.30 mL F: 46 - 106 LV Volume Index 34.93 mL/m2 F: 29 - 61 LA Volume 62.20 mL LA Volume Index 37.92 mL/m2 (M/F) 16-34 M-Mode Dimensions RVDd 2.89 cm (0.9-2.6) LA Diam 3.95 cm (1.9-4.0) LVDd 3.93 cm (3.5-5.7) Ao Diam 1.87 cm (2.0-3.7) LVDs 3.11 cm (3.5-5.7) IVSd 0.75 cm (0.6-1.1) PWd 0.82 cm (0.6-1.1) EF (Teich) 43.10% FS 20.90% EDV (Teich) 67.10 mL ESV (Teich) 38.20 mL LV Diastology E Decel Time 160.00 (160-240 msec) E/A Ratio 3.1 Mitral Valve MV E Max Maximo. 101.00 (40-130 cm/s) MV A Velocity 33.00 (40-130 cm/s) E/A Ratio 3.03 MV Decel. Time 160.00 (160-240 ms) MV PHT 47.00 ms Tricuspid Valve TR P. Velocity 212.00 cm/s RAP Estimate 15.00 mmHg RVSP 33.00 mmHg Left Ventricle Left atrium is moderately enlarged, left ventricle is normal size, mild concentric left ventricular hypertrophy, estimated ejection fraction 55% with no regional wall motion abnormality, diastolic parameters are inconclusive. Right Ventricle Right atrium and right ventricle mildly enlarged with normal contractility. Aortic Valve Aortic valve is thickened and calcified without aortic stenosis or aortic insufficiency. Mitral Valve Mitral valve is minimally thickened, there is mild mitral regurgitation. Tricuspid Valve Tricuspid valve grossly normal, there is mild tricuspid regurgitation, tricuspid regurgitation jet velocity is inadequate for calculation of the right ventricular systolic pressure. Pulmonic Valve Pulmonic valve is poorly visualized. Great Vessels Aortic root is normal size. Inferior vena cava normal size with normal spectral collapse. Pericardium No significant pericardial effusion noted. Conclusion 1. Biatrial enlargement, normal left ventricular size, mild concentric left ventricular hypertrophy, estimated ejection fraction 55% with no regional wall motion abnormality, diastolic parameters are inconclusive. 2. Mildly enlarged right ventricle with normal contractility. 3. Mild mitral and tricuspid regurgitation. 4. No significant pericardial effusion. 5. Inferior vena cava is normal size with normal inspiratory collapse. Electronically signed by : Ric Pugh MD 07/15/2021 20:51:54
--- NOTE | 2021-07-15 15:17 | PC.NURSE ---
pt finished with CT and is in US at this time; family was updated by MAYANK Avila
--- NOTE | 2021-07-15 15:58 | PC.NURSE ---
pt still in [facility]
--- NOTE | 2021-07-15 16:11 | PC.NURSE ---
pt returned from US by wheelchair and is hooked back to monitor; Diana Lujan RN at [facility]
[2021-07-15 18:35] LABS: Eosinophils % 2 % (0-3); Lymphocytes % 26 % (10-50); Monocytes % 7 % (2-9); Neutrophils % 65 % (42-76); Platelet Estimate Marked Increase; Total Cells Counted 100
--- NOTE | 2021-07-15 18:46 | PC.NURSE ---
15mg of xarelto pulled from [facility] and sent to ER through tube system
[2021-07-15 18:56] LABS: Troponin I < 0.01 ng/ml (0.00-0.034)
--- NOTE | 2021-07-15 18:57 | PC.NURSE ---
Notified house of admission
[2021-07-15 19:02] LABS: Microscopic, Urine URINE MICROSCOPIC (MICROSCOPIC)
[2021-07-15 19:07] LABS: Appearance,Urine CLEAR (Clear); Bilirubin,Urine Negative (Negative); Blood, Urine Negative (Negative); Color,Urine YELLOW (Yellow); Glucose,Urine (UA) Negative (Negative); Ketones,Urine Negative (Negative); Leukocyte Esterase,Urine Negative (Negative); Nitrate,Urine Negative (Negative); PH,Urine 5.5 (5.0-8.5); Protein,Urine TRACE (Negative); Specific Gravity, Urine 1.015 (1.005-1.030); Urobilinogen,Urine 0.2 EU/dl (0.2)
--- NOTE | 2021-07-15 19:12 | PC.NURSE ---
Called to give report, nurse stated she would call back for report
--- NOTE | 2021-07-15 19:16 | PC.NURSE ---
Report called to Cristiana from 2nd floor, stated she would be down to get patient soon
[2021-07-15 19:17] LABS: Bacteria,Urine Trace /lpf; Uric Acid Crystals,Urine 2+ /lpf
--- NOTE | 2021-07-15 20:03 | PC.NURSE ---
Addendum entered by Priscila Carrion CNA 07/16/21 06:42: CORRECTION- PT ARRIVED TO FLOOR VIA W/C FROM ED W/STAFF 2002 ON 07/15/2021 Original Note: PT ARRIVED TO FLOOR VIA W/V FROM ED/STAFF @ 2002
[2021-07-15 20:40] LABS: Troponin I < 0.01 ng/ml (0.00-0.034)
[2021-07-15 21:12] LABS: POC Glucose,Bedside 174 (70-110)
[2021-07-16] VITALS (15 sets, daily range): BP systolic 108–146; BP diastolic 59–99; PULSE 60–97; RESP 16–20; TEMP 36.4–37.2; O2SAT 93–98; BMI 26.2
--- NOTE | 2021-07-16 06:11 | PC.NURSE ---
Demetrius GLEASON NOTIFIED OF CONSULT
[2021-07-16 06:19] LABS: POC Glucose,Bedside 152 (70-110)
--- NOTE | 2021-07-16 07:10 | P.CONPHA_ITS ---
[facility] Pharmacy VTE Monitoring - Patient Demographics Admission date: 07/15/21 Report Date: 07/16/21 Time: 07:10 Allergies/Adverse Reactions: Patient Allergies hydralazine Allergy (Severe, Verified 06/13/21 09:18) throat swelling lisinopril Allergy (Severe, Verified 06/13/21 09:18) throat swelling amlodipine Allergy (Mild, Verified 06/13/21 09:18) Unknown allergy reaction candesartan Adverse Reaction (Intermediate, Verified 06/13/21 09:18) hyperkalemia telmisartan Adverse Reaction (Mild, Verified 06/13/21 09:18) Unknown allergy reaction Height: 1.57 m Weight: 64.818 kg Patient Problems: Current Active Problems Atrial fibrillation with RVR (Acute) New onset atrial fibrillation (Acute) Epigastric pain (Acute) CAD (coronary artery disease) (Chronic) HLD (hyperlipidemia) (Chronic) Diabetes mellitus (Chronic) CKD (chronic kidney disease) (Chronic) HTN (hypertension) (Chronic) - VTE Risk Labs: VTE Related Lab Results Hgb 15.7 g/dL (12.2-16.2) 07/15/21 14:15 Hct 47.1 % (37.0-47.0) H 07/15/21 14:15 Plt Count 628 K/mm3 (142-424) H 07/15/21 14:15 PT 11.3 seconds (10.1-12.5) 07/15/21 14:15 INR 1.00 (0.9-1.1) 07/15/21 14:15 APTT 24.7 seconds (22.8-30.6) 07/15/21 14:15 BUN 39 mg/dl (7-17) H 07/15/21 14:15 Creatinine 1.30 mg/dl (0.52-1.04) H 07/15/21 14:15 Estimated Creat Clear 36 mL/min (50-200) 07/15/21 14:15 - Prophylaxis VTE Prophylaxis Ordered?: Yes Types of VTE Prophylaxis: TEDS Knee High, Pharmacological Location of Applied Device: Bilateral Lower Extremeties Pharmacologic Type: Other (XARELTO)
--- NOTE | 2021-07-16 07:11 | ECG_ITS ---
APPROVED REPORT Exam: Resting ECG HR:129 bpm ECG Measurements Heart Rate 129 AXES QRSd 76 QRS 26 QT 323 T 269 QTc 399 Conclusion ATRIAL FIBRILLATION WITH RAPID VENTRICULAR RESPONSE POSSIBLE ANTERIOR MYOCARDIAL INFARCTION , PROBABLY OLD [30 ms Q WAVE IN V3/V4, OR R < 0.2 mV IN V4] MODERATE T-WAVE ABNORMALITY, CONSIDER LATERAL ISCHEMIA [-0.1+ mV T-WAVE IN I/aVL/V5/V6] MODERATE T-WAVE ABNORMALITY, CONSIDER INFERIOR ISCHEMIA [-0.1+ mV T-WAVE IN II/aVF] ABNORMAL ECG UNCONFIRMED REPORT Electronically signed by : Jason Rutherford MD 07/16/2021 08:21:34
--- NOTE | 2021-07-16 08:12 | HMH.PNCARD ---
Subjective Date: 07/16/21 Time: 08:12 Principal diagnosis: A. fib with RVR Interval history: 76-year-old white female admitted for A. fib with RVR with initially good response on diltiazem now with recurrent rapid A. fib with what appears to be a rate related left bundle branch block. We will rebolus 10 mg IV diltiazem and increase to 10 mg/h. Patient has noted some fast heart rates this morning since sitting up to eat breakfast. She was controlled through the night on 5 mg of diltiazem per hour IV with no complaints. Her most recent cardiac catheterization was in 2019 showed mild nonflow limiting coronary artery disease with hyperdynamic function. Echocardiogram this admission shows EF approximately 55% with mild concentric LVH. No significant valve disease noted. Troponins normal TSH is normal Exam Vital signs and Labs for Last 24 Hours: Temp Pulse Resp BP Pulse Ox 99.0 F 97 H 20 108/62 L 97 07/16/21 07:38 07/16/21 06:00 07/16/21 06:00 07/16/21 06:00 07/16/21 06:00 Laboratory Results - last 24 hr 07/15/21 14:15: WBC 19.6 H, RBC 5.21, Hgb 15.7, Hct 47.1 H, MCV 90.5, MCH 30.1, MCHC 33.2, RDW 13.5, Plt Count 628 H, MPV 8.1, Neut % (Auto) 71.2, Lymph % (Auto) 19.8, [place] % (Auto) 6.0, Eos % (Auto) 1.9, Baso % (Auto) 1.2, Neut # (Auto) 14.0 H, Lymph # (Auto) 3.9, [place] # (Auto) 1.2 H, Eos # (Auto) 0.4, Baso # (Auto) 0.2, Total Counted 100, Neutrophils % (Manual) 65, Lymphocytes % (Manual) 26, Monocytes % (Manual) 7, Eosinophils % (Manual) 2, Platelet Estimate Marked increase, RBC Morphology Not Reportable 07/15/21 14:15: Sodium 135 L, Potassium 4.1, Chloride 99, Carbon Dioxide 22, Anion Gap 18.1 H, BUN 39 H, Creatinine 1.30 H, Estimated Creat Clear 36, Estimated GFR 40 L, Est GFR ( Amer) 48 L, Glucose 186 H, Calcium 9.3, Troponin I 0.02 07/15/21 14:15: PT 11.3, INR 1.00, APTT 24.7 07/15/21 14:15: TSH 2.19, Free T4 Index 5.3 L, Thyroxine (T4) 15.0 H, T3 Uptake 35 07/15/21 14:25: Total Bilirubin 0.4, Direct Bilirubin 0.0, Conjugated Bilirubin 0.0, Indirect Bilirubin 0.4, Unconjugated Bilirubin 0.7, AST 26, ALT 22, Alkaline Phosphatase 109, Total Protein 7.0, Albumin 4.1, Lipase 128 07/15/21 14:35: SARS-CoV-2 (PCR) Not detected, Influenza A Untype (PCR) Not detected, Influenza Type B (PCR) Not detected 07/15/21 18:18: Troponin I < 0.01 07/15/21 18:59: Urine Color Yellow, Urine Appearance Clear, Urine pH 5.5, Ur Specific [place] 1.015, Urine Protein Trace, Urine Glucose (UA) Negative, Urine Ketones Negative, Urine Blood Negative, Urine Nitrate Negative, Urine Bilirubin Negative, Urine Urobilinogen 0.2, Ur Leukocyte Esterase Negative, Urine RBC None, Urine WBC 3-5, Ur Squamous Epith Cells 3-5, Uric Acid Crystals 2+, Urine Bacteria Trace 07/15/21 19:52: Troponin I < 0.01 07/15/21 21:03: POC Glucose 174 H 07/16/21 06:13: POC Glucose 152 H I & O for Last 24 hours: Intake & Output 07/13/21 07/14/21 07/15/21 07/16/21 11:59 11:59 11:59 11:59 Intake Total 80 / 80 Balance 80 / 80 Weight 142 lb 14.4 oz - Constitutional no acute distress - *Routine HEENT Exam Head: Present: normocephalic Eye: Present: EOMI, PERRL ENT: Present: mucous membranes moist - *Routine Neck Exam Present: supple. Absent: lymphadenopathy - *Routine Respiratory Exam Present: CTA bilaterally - *Routine Cardiovascular Exam Present: tachycardia, irregularly irregular - *Routine Abdominal Exam Present: soft, normoactive bowel sounds. Absent: tenderness - *Routine Extremities Exam Absent: cyanosis, clubbing, edema - *Routine Skin Exam Present: warm. Absent: rash - *Routine Neurological Exam Present: alert, oriented X3 Progress Note: A&P (1) Atrial fibrillation with RVR Status: Acute (2) CAD (coronary artery disease) Status: Chronic (3) CKD (chronic kidney disease) Status: Chronic (4) Diabetes mellitus Status: Chronic (5) HLD (hyperlipidemia) Status: Chronic (6) HTN (hypertension) Status: Chronic
--- NOTE | 2021-07-16 09:45 | HMH.HP ---
*Admission Date: 07/15/21 *Chief complaint: a fib *History of present illness: 76 yr old female presents for emergency room with c/o for the past 4 days she has had upper abdominal discomfort and a sensation of lightheadedness, dizziness, and presyncope. Denies chest pain or shortness of breath. Denies palpitations. Patient states she was started on new meds last week by her pcp for gout and wonders if the meds caused her symptoms. States has prior cardiac problems. States that she has a couple of small blockages, but has not had stents or [place]. Noted to be in atrial fibrillation on arrival to ED, no prior history of atrial fibrillation. 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 Umana in [place]. Upon arrival to ED pt was in atrial fibrillation with a rapid ventricular rate at 150 bpm, placed on diltiazem drip. Patient admitted and cardiology consult obtained. [facility] History I have reviewed the patient's past medical history: Yes Medical History: Reports:: Atrial Fibrillation, Cancer (skin cancer), Coronary Artery Disease, Diabetes Mellitus Type 2, Heart Murmur, Hyperlipidemia, Hypertension, Renal Disease, Valvular Heart Disease Denies:: Diabetes Mellitus Type 1, Internal Pacemaker, MRSA, Seizures *Have you ever received a pneumonia vaccine?: No *Have you received a flu vaccine this season?: Yes Other Medical History: Reports: Arthritis. Denies: Blood Transfusion Reaction Other Surgeries: Yes: No Previous Surgery, Cardiac Catheterization, Colonoscopy, Dilation and Curettage, Hysterectomy-Total, Other. No: Pacemaker Amputation: No Fractures: No - *Social History Smoking Status: Never smoker Alcohol Intake: never Substance Use Type: denies use *Occupational Status:: retired Housing: house Household Members: none *Travel in the last 8 weeks: None Family Hx:: No significant family history Review of Systems - Review of Systems Review of systems:: pertinent systems reviewed and negative unless documented below - Constitutional Denies body ache(s), Denies fatigue - Eyes Denies blurry vision - ENT Reports dizziness, Reports headache(s), Denies bleeding gums - *Cardiovascular Reports shortness of breath, Reports lightheadedness, Denies chest pain at rest - *Respiratory Denies cough - *Gastrointestinal Reports abdominal pain, Denies belching - *Genitourinary Denies urinary incontinence - *Musculoskeletal Denies abnormal walking - Integumentary/Breasts Denies rash - *Neurologic Reports unsteadiness, Reports dizziness - Psychiatric Denies lack of enjoyment - Endocrine Denies excessive sweating - Hematologic/Lymphatic Denies easy bruising - Allergic/Immunologic Denies itchy eyes Meds Home Medications Medication Instructions Recorded Confirmed Type Aspirin [Aspirin 81mg chewable 81 mg PO DAILY 02/16/17 07/15/21 History tab] ergocalciferol (vitamin D2) 1,250 50,000 unit PO Q2W cap 08/25/18 07/15/21 History mcg (50,000 unit) capsule isosorbide mononitrate 30 mg 30 mg PO DAILY tab 11/21/18 07/16/21 History tablet,extended release 24 hr clonidine HCl 0.1 mg tablet 0.1 mg PO TID #90 tab 06/26/19 07/15/21 Rx Metformin HCl [Fortamet] 500 mg PO BID 12/06/19 07/15/21 History hydroCHLOROthiazide 12.5 mg PO DAILY 02/05/21 07/15/21 History [Hydrochlorothiazide] Indomethacin 50 mg PO BID 07/16/21 07/16/21 History Metoprolol Succinate [Metoprolol 100 mg PO BID 07/16/21 07/16/21 History Succinate 100mg Tablet*] Oxybutynin Chloride [Oxybutynin 10 mg PO DAILY 07/16/21 07/16/21 History Chloride ER] Allergies Allergy/AdvReac Type Severity Reaction Status Date / Time hydralazine Allergy Severe throat Verified 06/13/21 09:18 swelling lisinopril Allergy Severe throat Verified 06/13/21 09:18 swelling amlodipine Allergy Mild Unknown Verified 06/13/21 09:18 allergy reaction candesartan AdvReac Intermediate hyperkalemi Verified 06/13/21 09:18 a telmisartan Ad
--- NOTE | 2021-07-16 10:30 | HMH.PHAINT ---
MEDICATION RECONCILIATION COMPLETED ON PATIENT USING EXTERNAL FILL HISTORY FROM PHARMACY AND PATIENT INTERVIEW. -PAULINE SWENSON, ERISD
[2021-07-16 11:18] LABS: POC Glucose,Bedside 130 (70-110)
--- NOTE | 2021-07-16 15:17 | PC.NURSE ---
1300- cardizem drip titrated off at this time, HR 68, controlled afib per telemetry
[2021-07-16 16:45] LABS: POC Glucose,Bedside 170 (70-110)
--- NOTE | 2021-07-16 17:28 | PC.NURSE ---
1720- Patients HR increasing, uncontrolled afib per telemetry with rate 120-140, Dr Farr contacted, given order to increase verapramil to twice daily and give 180mg night dose now.
[2021-07-16 20:37] LABS: POC Glucose,Bedside 167 (70-110)
[2021-07-17] VITALS (9 sets, daily range): BP systolic 100–169; BP diastolic 61–83; PULSE 50–130; RESP 16–18; TEMP 36.4–37.1; O2SAT 93–98; BMI 26.2
[2021-07-17 05:45] LABS: POC Glucose,Bedside 145 (70-110)
[2021-07-17 06:13] LABS: Basophils # 0.2 K/mm3 (0-0.2); Basophils % 1.2 % (0.1-2.0); Eosinophils # 0.5 K/mm3 (0.0-0.4); Eosinophils % 2.6 % (0.1-12.0); Hemoglobin 13.6 g/dL (12.2-16.2); Lymphocytes # 3.3 K/mm3 (0.7-4.5); Lymphocytes % 16.3 % (10-50); Mean Corpuscular HGB Conc 32.3 g/dL (31.8-35.4); Mean Corpuscular Hemoglobin 29.9 pg (27.0-31.2); Mean Corpuscular Volume 92.6 fl (81-99); Mean Platelet Volume 8.1 fl (7.4-10.4); Monocytes % 4.9 % (1.7-9.3); Neutrophils # 15.2 K/mm3 (1.8-7.8); Neutrophils % 75.1 % (37.0-80.0); Platelet Count 421 K/mm3 (142-424); Red Blood Count 4.53 M/mm3 (4.20-5.40); Red Cell Distribution Width 13.7 % (11.5-17.5); White Blood Count 20.2 K/mm3 (4.8-10.8)
[2021-07-17 06:17] LABS: MANUAL DIFFERENTIAL MANUAL DIFFERENTIAL (MANUAL DIFF)
[2021-07-17 06:20] LABS: Chloride 103 mmol/L (98-107)
[2021-07-17 06:21] LABS: Potassium 3.7 mmoL/L (3.5-5.1); Sodium 135 mmol/L (136-145)
[2021-07-17 06:24] LABS: Anion Gap 11.7 mEq/L (5-15); Blood Urea Nitrogen 48 mg/dl (7-17); Carbon Dioxide 24 mmol/L (22.0-30.0); Creatinine Clearance Estimated 36 mL/min (50-200); Estimated Glomerular Filt Rate 40 ml/min (>60); GFR (African American) 48 ML/MIN (>60); Glucose 159 mg/dl (74-100)
[2021-07-17 07:18] LABS: Eosinophils % 4 % (0-3); Lymphocytes % 14 % (10-50); Monocytes % 13 % (2-9); Neutrophils % 69 % (42-76); Total Cells Counted 100
[2021-07-17 07:19] LABS: Platelet Estimate Slight Increase
[2021-07-17 07:20] LABS: RBC Morphology Normal
--- NOTE | 2021-07-17 10:02 | HMH.ACPN2 ---
Internal Medicine - PN: Subj *Date: 07/17/21 *Time: 19:34 Interval history: 76-year-old female patient standing up at side of bed, she denies any chest pain or shortness of breath during the night. She states she is going to take a bath. During the night her heart rate was elevated to the 130s to 150s, cardiology was contacted and medications ordered. White blood cell count this morning elevated to 20.2 and chest x-ray showing mild bilateral lower lobe atelectasis or pneumonia on chest x-ray we will start antibiotics patient informs she has a very serious heart condition and needs to stay in bed and connected to monitor, she is informed she can bathe at bedside with assistance. Patient verbalizes understanding and states she will proceed as recommended. Exam Vital signs and Labs for Last 24 Hours: Temp Pulse Resp BP Pulse Ox 98.0 F 76 17 145/69 H 94 L 07/17/21 08:00 07/17/21 06:00 07/17/21 06:00 07/17/21 06:00 07/17/21 06:00 Laboratory Results - last 24 hr 07/16/21 11:04: POC Glucose 130 H 07/16/21 16:35: POC Glucose 170 H 07/16/21 20:25: POC Glucose 167 H 07/17/21 05:30: WBC 20.2 H*, RBC 4.53, Hgb 13.6, Hct 42.0, MCV 92.6, MCH 29.9, MCHC 32.3, RDW 13.7, Plt Count 421 D, MPV 8.1, Neut % (Auto) 75.1, Lymph % (Auto) 16.3, [place] % (Auto) 4.9, Eos % (Auto) 2.6, Baso % (Auto) 1.2, Neut # (Auto) 15.2 H, Lymph # (Auto) 3.3, [place] # (Auto) 1.0, Eos # (Auto) 0.5 H, Baso # (Auto) 0.2, Total Counted 100, Neutrophils % (Manual) 69, Lymphocytes % (Manual) 14, Monocytes % (Manual) 13 H, Eosinophils % (Manual) 4 H, Platelet Estimate Slight increase, RBC Morphology Normal 07/17/21 05:30: Sodium 135 L, Potassium 3.7, Chloride 103, Carbon Dioxide 24, Anion Gap 11.7, BUN 48 H, Creatinine 1.30 H, Estimated Creat Clear 36, Estimated GFR 40 L, Est GFR ( Amer) 48 L, Glucose 159 H, Calcium 9.0 07/17/21 05:37: POC Glucose 145 H I & O for Last 24 hours: Intake & Output 07/14/21 07/15/21 07/16/21 07/17/21 23:59 23:59 23:59 23:59 Intake Total 920 / 920 240 / 240 Balance 920 / 920 240 / 240 Weight 142 lb 14.4 oz 142 lb 14.105 oz 142 lb 14.105 oz - Constitutional no acute distress - *Routine HEENT Exam Head: Present: normocephalic Eye: Present: EOMI ENT: Present: mucous membranes moist - *Routine Neck Exam Present: trachea midline. Absent: tracheal deviation - *Routine Respiratory Exam Present: CTA bilaterally. Absent: accessory muscle use - *Routine Cardiovascular Exam Present: irregularly irregular - *Routine Abdominal Exam Present: soft, normoactive bowel sounds. Absent: tenderness, firm - *Routine Extremities Exam Present: full ROM, pulses intact. Absent: cyanosis, clubbing - *Routine Skin Exam Present: intact, dry. Absent: cyanosis, erythema - *Routine Neurological Exam Present: alert, oriented X3. Absent: motor deficit - Routine Psychiatric Exam Present: normal affect, normal thought process. Absent: auditory hallucinations Assessment and Plan (1) Atrial fibrillation with RVR Status: Acute Category: Medical Code(s): I48.91 - Unspecified atrial fibrillation (2) CAD (coronary artery disease) Status: Chronic Qualifiers: Category: Medical Code(s): I25.10 - Atherosclerotic heart disease of crow coronary artery without angina pectoris (3) CKD (chronic kidney disease) Status: Chronic Qualifiers: Chronic kidney disease stage: unspecified stage Qualified Code(s): N18.9 - Chronic kidney disease, unspecified Category: Medical Code(s): N18.9 - Chronic kidney disease, unspecified (4) Diabetes mellitus Status: Chronic Qualifiers: Diabetes mellitus type: type 2 Diabetes mellitus termite treater helper insulin use: unspecified termite treater helper insulin use status Diabetes mellitus complication status: with other specified complication Qualified Code(s): E11.69 - Type 2 diabetes mellitus with other specified complication Category: Medical Code(s): E11.9 - Type 2 di
--- NOTE | 2021-07-17 10:17 | PC.NURSE ---
All care provided to this patient by Kendal MACHUCA during this shift, was done so under my direct supervision. Adelaida Madrid RN
--- NOTE | 2021-07-17 10:31 | HMH.PNCARD ---
Subjective Date: 07/17/21 Time: 10:31 Principal diagnosis: A. fib with RVR Interval history: 76-year-old white female in bed initially sleeping. Patient denies any discomfort yesterday evening or overnight. Heart rate currently in the 80-100 bpm range and appears to still be atrial fibrillation on telemetry. Nursing relates intermittent bradycardia in the 40s during the night. Exam Vital signs and Labs for Last 24 Hours: Temp Pulse Resp BP Pulse Ox 98.0 F 76 17 145/69 H 94 L 07/17/21 08:00 07/17/21 06:00 07/17/21 06:00 07/17/21 06:00 07/17/21 06:00 Laboratory Results - last 24 hr 07/16/21 11:04: POC Glucose 130 H 07/16/21 16:35: POC Glucose 170 H 07/16/21 20:25: POC Glucose 167 H 07/17/21 05:30: WBC 20.2 H*, RBC 4.53, Hgb 13.6, Hct 42.0, MCV 92.6, MCH 29.9, MCHC 32.3, RDW 13.7, Plt Count 421 D, MPV 8.1, Neut % (Auto) 75.1, Lymph % (Auto) 16.3, [place] % (Auto) 4.9, Eos % (Auto) 2.6, Baso % (Auto) 1.2, Neut # (Auto) 15.2 H, Lymph # (Auto) 3.3, [place] # (Auto) 1.0, Eos # (Auto) 0.5 H, Baso # (Auto) 0.2, Total Counted 100, Neutrophils % (Manual) 69, Lymphocytes % (Manual) 14, Monocytes % (Manual) 13 H, Eosinophils % (Manual) 4 H, Platelet Estimate Slight increase, RBC Morphology Normal 07/17/21 05:30: Sodium 135 L, Potassium 3.7, Chloride 103, Carbon Dioxide 24, Anion Gap 11.7, BUN 48 H, Creatinine 1.30 H, Estimated Creat Clear 36, Estimated GFR 40 L, Est GFR ( Amer) 48 L, Glucose 159 H, Calcium 9.0 07/17/21 05:37: POC Glucose 145 H I & O for Last 24 hours: Intake & Output 07/14/21 07/15/21 07/16/21 07/17/21 11:59 11:59 11:59 11:59 Intake Total 320 / 320 840 / 840 Balance 320 / 320 840 / 840 Weight 142 lb 14.105 oz 142 lb 14.105 oz - Constitutional no acute distress - *Routine Respiratory Exam Present: CTA bilaterally - *Routine Cardiovascular Exam Present: irregularly irregular - *Routine Neurological Exam Present: alert, oriented X3 Progress Note: A&P (1) Atrial fibrillation with RVR Status: Acute (2) CAD (coronary artery disease) Status: Chronic (3) CKD (chronic kidney disease) Status: Chronic (4) Diabetes mellitus Status: Chronic (5) HLD (hyperlipidemia) Status: Chronic (6) HTN (hypertension) Status: Chronic Assessment and Plan for All Diagnoses:: 1. Atrial fibrillation with rapid ventricular response, improved control with combination of metoprolol and verapamil. She continues on Xarelto therapy. Continue to monitor on telemetry and adjust meds as needed. 2. History of mild nonflow limiting CAD, clinically stable with normal troponins this admission. 3. CKD, stage III, stable 4. Diabetes mellitus 5. Hypertension, control improved with addition of verapamil 180 mg BID to metoprolol (will reduce to 50 mg daily) but still labile. Will discontinue isosorbide at this time since patient's coronary disease was mild in 2019. Continue HCTZ for history of diastolic dysfunction.
[2021-07-17 11:42] LABS: POC Glucose,Bedside 127 (70-110)
--- NOTE | 2021-07-17 12:02 | PC.NURSE ---
Stefan Covarrubias received order from Dr Gaston during am rounds. ok to transfer pt out of stepdown.
--- NOTE | 2021-07-17 19:20 | PC.NURSE ---
pt has had an ok day, she has been able to get up to the bedside commode by herself. nad noted. lungs are clear, bowel sounds are active. pt appears to be slightly [place]. since 1300 pt hr has maintained 80-90's even with ambulation.
[2021-07-17 21:46] LABS: POC Glucose,Bedside 160 (70-110)
[2021-07-18] VITALS: BP 132/66; PULSE 66; PULSE 70; RESP 16; TEMP 36.6; O2SAT 96
[2021-07-18 04:00] VITALS: BP 125/73; PULSE 62; PULSE 70; RESP 16; TEMP 36.7; O2SAT 99
--- NOTE | 2021-07-18 04:10 | PC.NURSE ---
Pt remains afib on telemetry. HR has been mostly controlled with brief episodes of bradycardia and tachycardia. Pt has rested well most of shift. She c/o indigestion at beginning of shift which resolved. VSS. Pt has remained on RA. She has ambulated with stand by assist to BR without difficulty. Medication administered per apr. Will continue to monitor.
[2021-07-18 06:00] VITALS: BMI 26.2
[2021-07-18 06:26] LABS: POC Glucose,Bedside 140 (70-110)
[2021-07-18 06:33] LABS: Basophils # 0.1 K/mm3 (0-0.2); Basophils % 0.8 % (0.1-2.0); Eosinophils # 0.4 K/mm3 (0.0-0.4); Eosinophils % 2.3 % (0.1-12.0); Hematocrit 39.6 % (37.0-47.0); Lymphocytes # 3.1 K/mm3 (0.7-4.5); Lymphocytes % 20.3 % (10-50); Mean Corpuscular HGB Conc 32.9 g/dL (31.8-35.4); Mean Corpuscular Hemoglobin 30.4 pg (27.0-31.2); Mean Corpuscular Volume 92.4 fl (81-99); Mean Platelet Volume 8.4 fl (7.4-10.4); Monocytes # 0.7 K/mm3 (0.1-1.0); Monocytes % 4.3 % (1.7-9.3); Neutrophils % 72.3 % (37.0-80.0); Platelet Count 372 K/mm3 (142-424); Red Blood Count 4.29 M/mm3 (4.20-5.40); Red Cell Distribution Width 13.6 % (11.5-17.5); White Blood Count 15.2 K/mm3 (4.8-10.8)
[2021-07-18 06:38] LABS: MANUAL DIFFERENTIAL MANUAL DIFFERENTIAL (MANUAL DIFF)
[2021-07-18 06:42] LABS: Chloride 102 mmol/L (98-107); Sodium 137 mmol/L (136-145)
[2021-07-18 06:45] LABS: Blood Urea Nitrogen 36 mg/dl (7-17); Carbon Dioxide 26 mmol/L (22.0-30.0); Creatinine Clearance Estimated 43 mL/min (50-200); Estimated Glomerular Filt Rate 48 ml/min (>60); GFR (African American) 58 ML/MIN (>60)
[2021-07-18 06:46] LABS: Calcium 8.9 mg/dl (8.4-10.2); Glucose 153 mg/dl (74-100)
[2021-07-18 07:07] LABS: Eosinophils % 4 % (0-3); Lymphocytes % 17 % (10-50); Monocytes % 9 % (2-9); Neutrophils % 70 % (42-76); Platelet Estimate Normal; RBC Morphology Normal; Total Cells Counted 100
[2021-07-18 08:00] VITALS: BP 156/80; PULSE 101; PULSE 95; RESP 20; TEMP 36.7; O2SAT 98
--- NOTE | 2021-07-18 08:13 | HMH.PNCARD ---
Subjective Date: 07/18/21 Time: 08:13 Principal diagnosis: A. fib with RVR Interval history: 76-year-old white female in bed on the phone in no acute distress. Patient is anxious to go home. Telemetry at this time shows heart rate in the 100-120's beats per minute range. Continues to be atrial fibrillation. Exam Vital signs and Labs for Last 24 Hours: Temp Pulse Resp BP Pulse Ox 98.1 F 62 16 125/73 99 07/18/21 04:00 07/18/21 04:00 07/18/21 04:00 07/18/21 04:00 07/18/21 04:00 Laboratory Results - last 24 hr 07/17/21 11:29: POC Glucose 127 H 07/17/21 21:17: POC Glucose 160 H 07/18/21 05:25: WBC 15.2 H, RBC 4.29, Hgb 13.0, Hct 39.6, MCV 92.4, MCH 30.4, MCHC 32.9, RDW 13.6, Plt Count 372, MPV 8.4, Neut % (Auto) 72.3, Lymph % (Auto) 20.3, [place] % (Auto) 4.3, Eos % (Auto) 2.3, Baso % (Auto) 0.8, Neut # (Auto) 11.0 H, Lymph # (Auto) 3.1, [place] # (Auto) 0.7, Eos # (Auto) 0.4, Baso # (Auto) 0.1, Total Counted 100, Neutrophils % (Manual) 70, Lymphocytes % (Manual) 17, Monocytes % (Manual) 9, Eosinophils % (Manual) 4 H, Platelet Estimate Normal, RBC Morphology Normal 07/18/21 05:25: Sodium 137, Potassium 4.0, Chloride 102, Carbon Dioxide 26, Anion Gap 13.0, BUN 36 H, Creatinine 1.10 H, Estimated Creat Clear 43, Estimated GFR 48 L, Est GFR ( Amer) 58 L D, Glucose 153 H, Calcium 8.9 07/18/21 06:04: POC Glucose 140 H I & O for Last 24 hours: Intake & Output 07/15/21 07/16/21 07/17/21 07/18/21 11:59 11:59 11:59 11:59 Intake Total 320 / 320 840 / 840 480 / 480 Output Total 300 / 300 Balance 320 / 320 840 / 840 180 / 180 Weight 142 lb 14.105 oz 142 lb 14.105 oz 142 lb 14 oz - Constitutional no acute distress - *Routine Respiratory Exam Present: CTA bilaterally - *Routine Cardiovascular Exam Present: tachycardia, irregularly irregular - *Routine Neurological Exam Present: alert, oriented X3 Progress Note: A&P (1) Atrial fibrillation with RVR Status: Acute (2) CAD (coronary artery disease) Status: Chronic (3) CKD (chronic kidney disease) Status: Chronic (4) Diabetes mellitus Status: Chronic (5) HLD (hyperlipidemia) Status: Chronic (6) HTN (hypertension) Status: Chronic Assessment and Plan for All Diagnoses:: 1. A. fib with RVR, which has been improved control on combination of verapamil and metoprolol. Patient's echocardiogram this admission shows EF 55%. CTA of the chest was negative for pulmonary embolus. Thyroid function normal. Xarelto 15 mg daily has been started due to elevated CHADS score. 2. Known mild nonflow limiting CAD by 2019 cardiac catheterization. Continue aspirin therapy 3. Diabetes mellitus, per PCP 4. Hypertension, controlled on combination of metoprolol and verapamil. 5. Hyperlipidemia, per records patient intolerant of statin therapy. 6. Elevated white count with recent history of gout treated with steroid therapy 7. Elevated platelet count 8. Abdominal pain with vomiting, work-up with CT of the abdomen and gallbladder ultrasound negative for acute process. 9. Gout of left foot, recently treated with steroids and NSAID Okay for discharge from cardiology standpoint. Home medication recommendations: Metoprolol succinate 50 mg daily Verapamil 180 mg twice daily Xarelto 15 mg daily Aspirin 81 mg daily HCTZ 12.5 mg daily Discontinued meds Isosorbide Clonidine Follow-up with Dr. Umana in [place] in 1 to 2 weeks.
--- NOTE | 2021-07-18 08:51 | HMH.DCSUM ---
General - General Admission date:: 07/15/21 Discharge date: 07/18/21 HPI HPI: 76 yr old female presents for emergency room with c/o for the past 4 days she has had upper abdominal discomfort and a sensation of lightheadedness, dizziness, and presyncope. Denies chest pain or shortness of breath. Denies palpitations. Patient states she was started on new meds last week by her pcp for gout and wonders if the meds caused her symptoms. States has prior cardiac problems. States that she has a couple of small blockages, but has not had stents or MO. Noted to be in atrial fibrillation on arrival to ED, no prior history of atrial fibrillation. Patient states she sees a women's swim coach Dr. Umana in [place]. Upon arrival to ED pt was in atrial fibrillation with a rapid ventricular rate at 150 bpm, placed on diltiazem drip. Patient admitted and cardiology consult obtained. Hospital Course Hospital Course: Abnormal Lab Results 07/17/21 11:29: POC Glucose 127 H 07/17/21 21:17: POC Glucose 160 H 07/18/21 05:25: WBC 15.2 H, Neut # (Auto) 11.0 H, Eosinophils % (Manual) 4 H 07/18/21 05:25: BUN 36 H, Creatinine 1.10 H, Estimated GFR 48 L, Est GFR ( Amer) 58 L D, Glucose 153 H 07/18/21 06:04: POC Glucose 140 H Cardiology consult:Assessment and Plan for All Diagnoses:: 1. A. fib with RVR, which has been improved control on combination of verapamil and metoprolol. Patient's echocardiogram this admission shows EF 55%. CTA of the chest was negative for pulmonary embolus. Thyroid function normal. Xarelto 15 mg daily has been started due to elevated CHADS score. 2. Known mild nonflow limiting CAD by 2019 cardiac catheterization. Continue aspirin therapy 3. Diabetes mellitus, per PCP 4. Hypertension, controlled on combination of metoprolol and verapamil. 5. Hyperlipidemia, per records patient intolerant of statin therapy. 6. Elevated white count with recent history of gout treated with steroid therapy 7. Elevated platelet count 8. Abdominal pain with vomiting, work-up with CT of the abdomen and gallbladder ultrasound negative for acute process. 9. Gout of left foot, recently treated with steroids and NSAID Okay for discharge from cardiology standpoint. Home medication recommendations: Metoprolol succinate 50 mg daily Verapamil 180 mg twice daily Xarelto 15 mg daily Aspirin 81 mg daily HCTZ 12.5 mg daily Discontinued meds Isosorbide Clonidine Follow-up with Dr. Umana in [place] in 1 to 2 weeks. Discharge Plan (1) Atrial fibrillation with RVR-improved control on combination of verapamil and metoprolol. Echocardiogram shows EF 55%. Xarelto 15 mg daily (2) CAD (coronary artery disease)-mild nonflow limiting CAD by 2019 cardiac catheterization. Continue aspirin therapy (3) CKD (chronic kidney disease)-Cre stable, pcp to monitor (4) Diabetes mellitus-continue meds and diet (5) HLD (hyperlipidemia)- Hyperlipidemia, patient intolerant of statin therapy. continue diet (6) HTN (hypertension)-controlled on metoprolol and verapamil. Objective Vital signs: Temp Pulse Resp BP Pulse Ox 98.1 F 101 H 20 156/80 H 98 07/18/21 08:00 07/18/21 08:00 07/18/21 08:00 07/18/21 08:00 07/18/21 08:00 no acute distress - *Routine HEENT Exam Head: Present: normocephalic Eye: Present: EOMI, PERRL ENT: Present: mucous membranes moist - *Routine Neck Exam Present: supple - *Routine Respiratory Exam Present: CTA bilaterally - *Routine Cardiovascular Exam Present: RRR - *Routine Abdominal Exam Present: soft, normoactive bowel sounds. Absent: tenderness - *Routine Extremities Exam Absent: cyanosis, clubbing, edema - *Routine Skin Exam Present: warm. Absent: rash - Detailed Eye Exam Eyelids: Bilateral normal inspection Results Labs on day of discharge: Labs from last 24 hours 07/18/21 07/18/21 07/18/21 06:04 05:25 05:25 WBC 15.2 H RBC 4.29 H
--- NOTE | 2021-07-18 09:52 | HMH.PHAINT ---
DISCHARGE MEDICATION COUNSELING PROVIDED. DISCUSSED THE 3 NEW MEDICATIONS WELL THE 3 THAT ARE BEING DISCONTINUED. VERAPAMIL: MAY CAUSE HEADACHE, WATCH FOR LOWER LEG SWELLING, DIZZINESS OR LIGHTHEADEDNESS POSSIBLE, TAKING FOR HEART RATE AND BLOOD PRESSURE, TAKE WITH FOOD. METOPROLOL: CHANGE FROM 100 MG TWICE DAILY TO 50 MG DAILY, WATCH FOR DIZZINESS OR LIGHTHEADEDNESS. XARELTO: BLOOD THINNER, TAKE IN THE EVENING WITH MEAL, WATCH FOR SIGNS/SYMPTOMS OF BLEEDING, WHERE IN GI TRACT BLEEDING OCCURS WILL CHANGE APPEARANCE, IF YOU BUMP HEAD GO TO ER, BRUISING MORE LIKELY, MAY LAST LONGER. STOP: ISOSOBIDE, CLONIDINE, METOPROLOL 100 MG BID PATIENT ENDORSED NO QUESTIONS AT THIS TIME.
[2021-07-18 13:22] LABS: POC Glucose,Bedside 117 (70-110)
--- NOTE | 2021-07-21 15:05 | CARE MANAGER ---
Spoke with patient regarding post-discharge phone interview, she states that she is fine and has an appointment with her ethics manager' on Wednesday. She got her medications filled, no issues.
== END 2021-07-18 10:10 | disposition home or self-care (01) | DRG 310 ==
LOC: ER 17:52 → 2ND 20:09
PROVIDERS: Nurse Practitioner Family; Admitting Provider Emergency Medicine; Emergency Provider Emergency Medicine; PCP Nurse Practitioner Family; Visit Provider Emergency Medicine
DX: I48.91 Unspecified atrial fibrillation (principal); Z85.828 Personal history of other malignant neoplasm of skin; R10.13 Epigastric pain; I25.10 Atherosclerotic heart disease of native coronary artery without angina pectoris; E78.5 Hyperlipidemia, unspecified; E11.22 Type 2 diabetes mellitus with diabetic chronic kidney disease; I12.9 Hypertensive chronic kidney disease with stage 1 through stage 4 chronic kidney disease, or unspecified chronic kidney disease; N18.30 Chronic kidney disease, stage 3 unspecified; Z20.822 Contact with and (suspected) exposure to COVID-19
CPT/HCPCS: 36415; 71045; 71275; 74176; 76705; 80048; 80076; 81001; 82962; 83690; 84436; 84443; 84479; 84484; 85007; 85025; 85610; 85730; 93005; 93306; 96375; 99285; C9803; J0456; J0696; J2405; Q9967; U0003; U0005

== ENCOUNTER → 2021-12-23 13:49 | Outpatient (POV) | payer MEDICARE, MEDICAID, SELFPAY | PROVIDERS: Visit Provider Dermatology | DX: Z00.00 Encounter for general adult medical examination without abnormal findings (principal) ==

== ENCOUNTER → 2022-01-05 10:19 | Outpatient (CLI) | payer MEDICARE, MEDICAID, SELFPAY ==
--- NOTE | 2022-01-05 10:22 | MM_ITS ---
PROCEDURE INFORMATION: Exam: Bilateral Screening 3D Mammography Exam date and time: 01/05/2022 10:36 AM Age: 76 years old Clinical indication: Screening examination TECHNIQUE: Imaging protocol: Bilateral Screening tomosynthesis and 2D mammography including computer-aided detection (CAD) when performed. COMPARISON: 1. MG DMSB DIGITAL MAMM-SCREEN BILATERAL 07/01/2010 8:53 AM 2. DIGMAMMS MAMMOGRAM SCREEN-SUPERVISOR PHOTOCOMPOSITION N/C 05/03/2008 9:31 AM FINDINGS: MAMMOGRAPHY: Breast composition: There are scattered areas of fibroglandular density. Mass: None. Architectural distortion: None. Calcifications: No suspicious calcifications. Asymmetric density: None. Skin thickening: None. Axillary adenopathy: None. There is limited evaluation of the posterior right breast due to the patient's limited mobility IMPRESSION: No mammographic evidence of malignancy. Annual screening is recommended unless otherwise clinically indicated. ASSESSMENT: BI-RADS Category 1: Negative
== END ==
PROVIDERS: PCP Nurse Practitioner Family; Visit Provider Nurse Practitioner Family
DX: Z12.31 Encounter for screening mammogram for malignant neoplasm of breast (principal)
CPT/HCPCS: 77063; 77067

== ENCOUNTER → 2023-01-11 10:22 | Outpatient (CLI) | payer MEDICARE, MEDICAID, SELFPAY ==
--- NOTE | 2023-01-11 10:22 | MM_ITS ---
PROCEDURE INFORMATION: Exam: MG Bilateral Screening 3D Mammography Exam date and time: 01/11/2023 10:14 AM Age: 77 years old Clinical indication: Screening. No family history of breast cancer. TECHNIQUE: Imaging protocol: Bilateral Screening tomosynthesis and 2D mammography including computer-aided detection (CAD) when performed. COMPARISON: 1. MG MM DIG SCREENING MAMM BI W/CAD 01/05/2022 10:36 AM 2. MG DMSB DIGITAL MAMM-SCREEN BILATERAL 07/01/2010 8:53 AM 3. MG DIGMAMMS MAMMOGRAM SCREEN-POWER CRANE OPERATOR N/C 05/03/2008 9:31 AM 4. MG DIGMAMMDX MAMMOGRAM DX-POWER CRANE OPERATOR N/C 03/21/2007 10:27 AM FINDINGS: MAMMOGRAPHY: Breast composition: There are scattered areas of fibroglandular density. Mass: No suspicious mass. Architectural distortion: None. Calcifications: No suspicious calcifications. Asymmetric density: None. Skin thickening: None. Axillary adenopathy: None. IMPRESSION: No mammographic evidence of malignancy. Annual screening is recommended unless otherwise clinically indicated. ASSESSMENT: BI-RADS Category 1: Negative
== END ==
PROVIDERS: PCP Nurse Practitioner Family; Visit Provider Nurse Practitioner Family
DX: Z12.31 Encounter for screening mammogram for malignant neoplasm of breast (principal)
CPT/HCPCS: 77063; 77067

== ENCOUNTER 2024-05-31 12:49 | Outpatient (CLI) | payer MEDICARE, MEDICAID, SELFPAY ==
--- OUTSIDE RECORDS SUMMARY | 2024-05-31 12:52 | XMS_ITS | Continuity of Care Document ---
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 Plan of Treatment Reminders Order Date Submit Date Provider Last Modified By Organization Details Last Modified Time Details Appointments OV EST 30 2024 11:45A M JULIANO PINEDA, BÁRBARA, S Not available Not available Not available Lab None recorded. Referral None recorded. Procedures None recorded. Surgeries None recorded. Imaging None recorded. Medication Orders Kenalog 10 mg/mL suspensio n for injection 2024 025 [email or web address] Not available 05/25/2024 07:36:03 bupivacai ne HCl 0.5 % (5 mg/mL) injection solution 2024 025 Not available 05/25/2024 07:36:03 Patient TargetsNo targets recorded. Patient InstructionsNo instructions recorded. Reason for Referral None Reported. Results Created Date Observation Date Name Description Value Unit Range Abnormal Flag Note LastModifiedBy Organization Detail LastModifiedTime 05/03/1905/01/2024 elect rocar diogr am inter preta tion* No observ ation record ed. [email or web address] Not Available 2024 10:43:32 05/10/1905/05/2024 XR, [facility] No observ ation record ed. juancho Cooper [address] [place], [address], 05/09/2024 15:10:43 Result Notes None recorded. Problems Name Problem SNOMED Code Status Onset Date Resolution Date Notes Provider Name and Address Organization Details Recorded Time Malignant hypertensio n 23763252 Active 2021 Peter Umana MD [facility] [address], [place], [address], [place] - [facility] - [place] & [place] 2 11:37:51 Coronary arterioscle rosis 84304960 Active 2021 Peter Umana MD [facility] [address] [facility],[address], [place], [address], [place] [facility] & [place] 2 11:37:56 Hyperlipide stacia 00084891 Active 2021 Peter Umana MD [facility] [address] [facility],[address], [place], [address], [place] [facility] & [place] 2 11:38:20 Essential hypertensio n 05371825 Active 2022 JULIANO PINEDA NP, S [facility] [address] [facility],[address], [place], [address], [place] [facility] & [place] 3 17:20:30 Mitral valve regurgitati on 76592771 Active 2022 JULIANO PINEDA NP, S [facility] [employer] [facility],[address], [place], [address], [place] & [place] 3 17:20:38 Diabetes mellitus 27967365 Active 2022 JULIANO PINEDA NP, S [facility] [employer] [facility],[address], [place], [address], [place] [facility] & [place] 3 17:20:46 Atrial fibrillatio n 05998777 Active 2022 JULIANO PINEDA NP, S [facility] [address] [facility],[address], [place], [address], [place] & [place] 3 17:20:52 Angina pectoris 693574946 Active 2022 Jay Benavides NP [address] [place] [address],[address], [place], [address], [place] & [place] 3 10:55:07 Pulmonary edema 35908654 Active Viky Knarr null, [place] & [place] 4 08:02:48 Infective pneumonia 681936188 Active Viky Knarr null, [place] [facility] & [place] 4 08:02:48 History of cardiac catheteriza tion 0726259665835 0 Active Viky Knarr null[place] & [place] 4 08:02:48 Sepsis 81149862 Active Viky Knarr null[place] & [place] 4 08:02:48 Diastolic heart failure 594891619 Active 2023 Peter Umana MD [address] [place] [address] Drive,[address], [place], [address], [place] [facility] - [facility] & [place] 4 08:56:56 Pulmonary hypertensio n 79241292 Active 2023 Peter Umana MD [address] [place] [address],[address], [place], [address], [place] & [place] 4 08:57:02 Problem Notes None recorded. Procedures Surgical History Date Name Laterality Status Provider Name and Address Organization Details Recorded Time 05/07/19 23 LEFT HEART CATHETERIZATION (SURG) completed Jay Benavides NP [address] [place] [address],[address], [place], [address], [place] & [place] 05/14/2022 10:53:55 catheterization of left heart completed Viky Turner [place] - [place] & [place] 08/03/2023 08:05:07 Hysterectomy completed Viky Cor[place]arr [place] - [facility] - [place] & [place] 12/09/2021 11:29:21 Imaging Results None recorded. Procedure Notes None recorded. Medical Equipment None Reported. Allergies Allergen ID Allergen Name Allergen Category Reaction Reaction Severity Criticality Documentation Date Start Date Code Code System Note Provider Name and Address Organization Details Recorded Time 36997 amlodipin e medicatio n Not available Not available Not available 04/29/2022 03973 RxNorm Viky benedict, [place] - [facility] & [place] 3 11:02:48 10786 hydralazi ne medicatio n Not available Not available Not available 04/29/20222023 5470 RxNorm Viky benedict, [place] - [facility] & [place] 4 08:02:37 17643 lisinopri l medicatio n Not available Not available Not available 04/29/20222023 09949 RxNorm Viky benedict, [place] - [facility] & [place] 4 08:02:37 07251 telmisart an medicatio n Not available Not available Not available 04/29/20222023 60555 RxNorm Viky benedict, [place] - [facility] & [place] 4 08:02:37 Medications Name Sig Start Date Stop Date Status Note LastModified by Organization Details LastModified Time losartan 50 mg tablet ONE (1) TABLET BY MOUTH ONCE A DAY 03/27 completed Not Available Not Available Not Available amoxicillin 500 mg capsule TAKE FOUR (4) TABLETS BY MOUTH DIRECTED; TAKE ALL FOUR TABLETS ONE FULL HOUR PRIOR TO DENTAL APPT active Not Available Not Available No t Available metformin 500 mg tablet TAKE ONE TABLET BY MOUTH TWICE DAILY --TAKE WITH FOOD-- 08/02 completed Not Available Not Available Not Available clonidine HCl 0.1 mg tablet TAKE ONE TABLET BY MOUTH THREE TIMES DAILY 03/27 completed Not Available Not Available Not Available prednisone 10 mg tablet TAKE ONE (1) TABLET TWICE A DAY BY ORAL ROUTE NEEDED FOR FIVE (5) DAYS. 08/02 completed Not Available Not Available Not Available oxybutynin chloride ER 10 mg tablet,exte nded release 24 hr TAKE ONE TABLET BY MOUTH EVERY DAY 03/27 completed Not Available Not Available Not Available fluconazole 150 mg tablet TAKE ONE TABLET NOW, REPEAT DOSE IN THREE (3) DAYS 10/12 completed Not Available Not Available Not Available amiodarone 200 mg tablet TAKE ONE (1) TABLET EVERY DAY BY ORAL ROUTE FOR 90 DAYS. active Not Available Not Available No t Available metoprolol succinate ER 50 mg tablet,exte nded release 24 hr TAKE ONE (1) TABLET BY MOUTH EVERY DAY active Not Available Not Available No t Available bupivacaine HCl 0.5 % (5 mg/mL) injection solution Take 10 mg by injection route. 2024 active Not Available Not Available Not Avai lable prednisone 20 mg tablet TAKE ONE (1) TABLET TWICE A DAY BY ORAL ROUTE FOR FIVE (5) DAYS. active Not Available Not Available No t Available isosorbide mononitrate ER 30 mg tablet,exte nded release 24 hr TAKE ONE TABLET BY MOUTH TWICE DAILY 04/29 completed Not Available Not Available Not Available metoprolol succinate ER 100 mg tablet,exte nded release 24 hr TAKE ONE TABLET BY MOUTH TWICE DAILY 03/27 completed Not Available Not Available Not Available prednisone 5 mg tablet TAKE 1 TABLET BY MOUTH TWICE DAILY WITH MEALS FOR FIVE (5) DAYS 03/27 completed Not Available Not Available Not Available verapamil ER (SR) 180 mg tablet,exte nded release TAKE ONE TABLET BY MOUTH TWICE DAILY 03/27 completed Not Available Not Available Not Available clopidogrel 75 mg tablet TAKE ONE (1) TABLET EVERY DAY BY ORAL ROUTE active Not Available Not Available No t Available amlodipine 5 mg tablet TAKE ONE (1) TABLET BY MOUTH EVERY DAY 12/15 completed Not Available Not Available Not Available sulfamethox azole 800 mg-trimetho prim 160 mg tablet TAKE ONE (1) TABLET BY ORAL ROUTE EVERY 12 HOURS FOR 10 DAYS 10/12 completed Not Available Not Available Not Available isosorbide mononitrate ER 120 mg tablet,exte nded release 24 hr TAKE ONE TABLET BY MOUTH TWICE DAILY 03/27 completed Not Available Not Available Not Available verapamil ER 180 mg 24 hr capsule,ext ended release TAKE ONE (1) CAPSULE BY MOUTH EVERY DAY 04/29 completed Not Available Not Available Not Available isosorbide mononitrate ER 60 mg tablet,exte nded release 24 hr TAKE ONE TABLET BY MOUTH TWICE DAILY 03/27 completed Not Available Not Available Not Available tamsulosin 0.4 mg capsule TAKE 1 CAPSULE BY MOUTH EVERY 24 HOURS UNTIL STONE PASSES 03/27 completed Not Available Not Available Not Available Kenalog 10 mg/mL suspension for injection Take 20 mg by injection route. 2024 active Not Available Not Available Not Avai lable amlodipine 10 mg tablet TAKE ONE (1) TABLET EVERY DAY BY ORAL ROUTE. 08/02 completed Not Available Not Available Not Available benzonatate 100 mg capsule TAKE ONE (1) CAPSULE THREE (3) TIMES A DAY BY MOUTH NEEDED FOR FIVE (5) DAYS. 03/27 completed Not Available Not Available Not Available cephalexin 500 mg capsule TAKE ONE (1) CAPSULE TWICE A DAY BY ORAL ROUTE FOR 7 DAYS. 08/12 completed Not Available Not Available Not Available pantoprazol e 40 mg tablet,mikaela yed release TAKE 1 TABLET BY MOUTH EVERY DAY active Not Available Not Available No t Available indomethaci n 50 mg capsule TAKE ONE CAPSULE BY MOUTH TWICE DAILY --TAKE WITH FOOD-- 03/27 completed Not Available Not Available Not Available hydrochloro thiazide 12.5 mg capsule TAKE ONE CAPSULE BY MOUTH EVERY DAY IN THE MORNING 03/27 completed Not Available Not Available Not Available nitroglycer in 0.4 mg sublingual tablet DISSOLVE 1 TABLET UNDER THE TONGUE EVERY 5 MINUTES UP TO 3 DOSES NEEDED FOR CHEST PAIN - IF NO RELIEF CALL 911 active Not Available Not Available No t Available mupirocin 2 % topical ointment APPLY A SMALL AMOUNT TO THE AFFECTED AREA BY TOPICAL ROUTE THREE (3) TIMES PER DAY active Not Available Not Available No t Available furosemide 20 mg tablet TAKE 1 TABLET BY MOUTH EVERY DAY active Not Available Not Available No t Available metoprolol succinate ER 25 mg tablet,exte nded release 24 hr TAKE ONE (1) TABLET EVERY DAY BY ORAL ROUTE. 08/02 completed Not Available Not Available Not Available ergocalcife rol (vitamin D2) 1,250 mcg (50,000 unit) capsule TAKE 1 CAPSULE BY MOUTH TWICE WEEKLY active Not Available Not Available No t Available Pepcid 20 mg tablet Take 1 tablet twice a day by oral route as directed. 03/27 completed Not Available Not Available Not Available estradiol 0.01% (0.1 mg/gram) vaginal cream INSERT ONE HALF (1/2) GRAM VAGINALLY 3 TIMES WEEKLY FOR 2 MONTHS, THEN TWICE A WEEK THEREAFTE R active Not Available Not Available No t Available ondansetron 4 mg disintegrat ing tablet TAKE 1 TABLET BY MOUTH EVERY EIGHT (8) HOURS NEEDED FOR NAUSEA AND VOMITING 03/27 completed Not Available Not Available Not Available cefdinir 300 mg capsule TAKE ONE CAPSULE BY MOUTH TWICE DAILY -- FINISH ALL MEDICINE -- 03/27 completed Not Available Not Available Not Available amoxicillin 875 mg-potassiu m clavulanate 125 mg tablet TAKE ONE (1) TABLET TWICE A DAY BY ORAL ROUTE FOR 7 DAYS. 11/02 completed Not Available Not Available Not Available amoxicillin 500 mg-potassiu m clavulanate 125 mg tablet TAKE ONE (1) TABLET EVERY 12 HOURS BY ORAL ROUTE FOR 10 DAYS. 08/02 completed Not Available Not Available Not Available azithromyci n 500 mg tablet TAKE 1 TABLET BY MOUTH EVERY DAY AT 10AM 08/02 completed Not Available Not Available Not Available Premarin 0.625 mg/gram vaginal cream INSERT 0.5G INTRAVAGI PADMA EVERY OTHER NIGHT FOR THE FIRST MONTH OF THERAPY AND THEN GO TO TWICE A WEEK BEFORE BED. active Not Available Not Available No t Available losartan 100 mg-hydrochl orothiazide 12.5 mg tablet TAKE ONE (1) TABLET EVERY DAY BY MOUTH 05/13 completed Not Available Not Available Not Available Vitamin D 08/12 completed Not Available Not Available Not Available hydrochloro thiazide 12.5 mg tablet TAKE 1 TABLET BY MOUTH EACH MORNING 03/27 completed Not Available Not Available Not Available diclofenac 1 % topical gel APPLY TWO (2) GRAMS TO LEFT SHOULDER TWICE DAILY active Not Available Not Available No t Available Tradjenta 5 mg tablet TAKE 1 TABLET BY MOUTH EVERY DAY active Not Available Not Available No t Available Xarelto 15 mg tablet TAKE ONE TABLET BY MOUTH WITH FOOD EVERY EVENING active Not Available Not Available No t Available Uro-MP 118 mg-10 mg-40.8 mg-36 mg capsule TAKE ONE (1) CAPSULE BY MOUTH THREE TIMES DAILY DIRECTED 03/27 completed Not Available Not Available Not Available Entresto 24 mg-26 mg tablet TAKE ONE (1) TABLET TWICE A DAY BY ORAL ROUTE. active Not Available Not Available No t Available Vitals None Recorded Social History Question Answer Notes LastModified by Organizat ion Details LastModified Time Tobacco Smoking Status Never Smoker Viky Turner [place], [facility] & [place] 12/09/2021 11:29:10 What Is Your Level Of Alcohol Consumption? None [email or web address] Information not available 03/27/2022 Do You Use Any Illicit Or Recreational Drugs? No [email or web address] Information not available 03/27/2022 Sex: Unknown Functional Status None recorded. Mental Status None recorded. Family History Nothing Reported. Medical History Condition Response Diabetes Y Hyperlipidemia Y Hypertension Y Kidney Disease Y Gynecological HistoryNo gynecological history recorded. Obstetrics History GPAL:G 0 P 0 0 0 0 Past Encounters Encounter ID Performer Location Encounter Start Date Encounter Closed Date Diagnosis/Indication Diagnosis SNOMED-CT Code Diagnosis ICD10 Code Diagnosis Note [id number] Prabhjot Yang MD Rachna wilkins [facility] [address] [place] [address] 05/23/2024 09:49:24 05/23/2024 11:30:51 Arthritis of left acromioclavicular joint [id number] 071604 M19.012 Full thick ness rotator cuff tear 057186084 M75.122 Health Concerns Section Related Observation LastModified by Organization Detai ls LastModified Time None Recorded Concern Status LastModified by Organization Details LastModified Time None Recorded Payers Encounter Date Sequence Insurance Name Policy Number Policy Weinberg Covered Member ID Weinberg Member ID Guarantor Name 05/23/2024 1 [place] Jessa Cristobal [id number] Jessa Cristobal 05/23/[address] [facility] (MEDICAID HMO) Jessa Cristobal [id number] Jessa Cristobal Notes Date Note Type Note Provider Name and Address Organization Details Recorded Time 05/23/2024 text/html 80 year old female here today for left shoulder pain ongoing since February 2024- no known injury. She has painful ROM. She has tried tylenol for pain, minimal relief. X-rays of left shoulder taken @[facility]. Prabhjot Yang MD [address] [facility],[address], [place], [address], [facility] 05/24/2024 08:08:56 OBGyn Episode No OBEpisode recorded.
--- OUTSIDE RECORDS SUMMARY | 2024-05-31 12:52 | XMS_ITS | Data Portability ---
Author Organization [place] - [place] [facility] Address [address] [place] [address] Care Team Providers Care Manager Biostatistics Name Role Phone PHILLIP RALPHCORNELIOSilke Primary Care Provider [phone] Assessment Encounter Date Assessment Date Assessment LastModified by Organization Details LastModified Time 08/03/2023 08/03/2023 Post cardiac catheterization. The cardiac catheterization showed mild diffuse coronary artery disease with mild diffuse coronary calcification. Patent stents. Mild elevation in left ventricular end-diastolic pressure and wedge with moderate pulmonary hypertension. I think she would benefit from being on some Entresto. We will do this twice daily. Follow-up in 3-4 weeks. Continue the same other medications. For the nosebleeds I will have her hold the Xarelto for 3 days and then start back the Xarelto. Continue Plavix. Meds and chart reviewed in full today. EKG today shows normal sinus rhythm with first-degree AV block and then nonspecific interventricular conduction delay which looks left bundle in nature. Nonspecific ST and T-wave changes. No change from baseline Continue current medications Risk factor modification Recommend LDL less than 70 Blood work as per primary care Continue Lasix at current dose Continue metoprolol ER 50 mg daily Continue amlodipine 5 mg daily Continue amiodarone Continue Plavix and Xarelto Start Entresto 24/26 mg twice daily Monitor blood pressure and heart rate Follow-up in Cardiology Clinic in 3-4 weeks Patient Education was printed, I have reviewed the Past medical, Family and Social Histories along with ROS and all orders in today's record, and have noted any changes. Medications, charts and records were reviewed in full today. -cardiac catheterization 07/26/2023 with mild diffuse coronary artery disease and mild diffuse coronary calcification. Patent stent in the mid/distal circumflex. Mild elevation in left ventricular end-diastolic pressure and pulmonary capillary wedge pressure with moderate pulmonary hypertension but normal pulmonary artery saturation, cardiac output and index - April 2022 she underwent stenting to his circumflex artery. Her LVEDP was 22. She is already on diuretics. Ejection fraction was 60%. She had fibromuscular dysplasia on the right with mild renal artery stenosis. -EKG nsr 71, prwp, incomplete LBBB LAST ECHO: 06/2021 revealed an EF of 55% with mild MR, mild tricuspid insufficiency. * ISCHEMIC EVALUATION: 04/2022 revealed an anterior wall defect. Intermediate risk stress test. LAST HEART CATH: 07/26/2023 with mild coronary artery disease and moderate pulmonary hypertension LAST LDL: April 2022 LDL was 121 CHADsVASC: 6, high risk. 9% to 13.6% risk of stroke, TIA, and systemic embolism per year. - continue to monitor blood pressure, no change in medications today -Continue current medications. -Continue aggressive risk factor medications. -Recommended LDL less than 70. -Encouraged regular exercise and activity. -Continue Xarelto and Plavix. Hold Xarelto for 3 days given nosebleeds - no aspirin secondary to dual antithrombotic therapy -continue to monitor blood pressure, has had issues with orthostasis in the past [email or web address] Not available 08/03/2023 08:56:22 11/03/2023 11/03/2023 Patient does fee l better with the Entresto. I told her she needs to take it twice a day. She will continue to monitor the blood pressure and heart rate. I reviewed her log today. Blood pressure is running around 140s over 60s. The heart rate has been good at 65-70. We will see her back in 6-8 weeks. Meds and chart reviewed in full today Patient Education was printed, I have reviewed the Past medical, Family and Social Histories along with ROS and all orders in today's record, and have noted any changes. Medications, charts and records were reviewed in full today. PLAN: Continue Entresto but do the dosage twice daily Monitor blood pressure and heart rate Continue amlodipine. If the blood pressure runs low, this would be the medication I would stop. Blood pressure seems like it could easily tolerate the twice daily on the Entresto Follow-up in Cardiology Clinic in 6-8 weeks Continue current medications Risk factor modification Recommend LDL less than 70 Blood work as per primary care ECHOCARDIOGRAM: 07/27/2023 - ejection fraction 65-70%. Mild left atrial enlargement with normal right atrial size. Moderate mitral insufficiency. Mild calcification and thickening of the aortic valve leaflets with normal aortic valve leaflet mobility and function there is trivial aortic insufficiency. CARDIAC CATHETERIZATION: with mild diffuse coronary artery disease and mild diffuse coronary calcification. Patent stent in the mid/distal circumflex. Mild elevation in left ventricular end-diastolic pressure and pulmonary capillary wedge pressure with moderate pulmonary hypertension but normal pulmonary artery saturation, cardiac output and index April 2022 she underwent stenting to his circumflex artery. Her LVEDP was 22. She is already on diuretics. Ejection fraction was 60%. She had fibromuscular dysplasia on the right with mild renal artery stenosis. EK08/03/2023 -nsr 71, prwp, incomplete LBBB LAST ECHO: 06/2021 revealed an EF of 55% with mild MR, mild tricuspid insufficiency. ISCHEMIC EVALUATION: 04/2022 revealed an anterior wall defect. Intermediate risk stress test. LAST HEART CATH: 05/06/2022 LAST LDL: April 2022 LDL was 121 CHADsVASC: 6, high risk. 9% to 13.6% risk of stroke, TIA, and systemic embolism per year. I, JESSICA TURNER LPN, I AM SCRIBING FOR, AND IN THE OFFICE/PRESENCE OF, MIGUELINA SR MD. I, MIGUELINA SR M.D. PERFORMED THE SERVICES DESCRIBED IN THIS DOCUMENTATION, SCRIBED BY JESSICA TURNER LPN IN MY PRESENCE, AND IT IS BOTH ACCURATE AND COMPLETE. [email or web address] Not available 11/03/2023 11:23:09 12/16/2023 12/16/2023 Patient Educatio n was printed, I have reviewed the Past Medical, Family, and Social Histories along with ROS and all orders in today's record, and have noted any changes. Medications, charts and records reviewed in full today. - blood pressure 146/64, heart rate 66, weight 151 lb. Oxygen saturation 99% on room air. - ECHOCARDIOGRAM: 07/27/2023 - ejection fraction 65-70%. Mild left atrial enlargement with normal right atrial size. Moderate mitral insufficiency. Mild calcification and thickening of the aortic valve leaflets with normal aortic valve leaflet mobility and function there is trivial aortic insufficiency. CARDIAC CATHETERIZATION: with mild diffuse coronary artery disease and mild diffuse coronary calcification. Patent stent in the mid/distal circumflex. Mild elevation in left ventricular end-diastolic pressure and pulmonary capillary wedge pressure with moderate pulmonary hypertension but normal pulmonary artery saturation, cardiac output and index. PAST ECHO: 06/2021 revealed an EF of 55% with mild MR, mild tricuspid insufficiency. ISCHEMIC EVALUATION: 04/2022 revealed an anterior wall defect. Intermediate risk stress test. PAST HEART CATH: 05/06/2022. CHADsVASC: 6, high risk. 9% to 13.6% risk of stroke, TIA, and systemic embolism per year. - Plan: ???Decrease Entresto to 1/2 tablet twice daily. Monitor heart rate and blood pressure daily, bring log to next visit. Discussed safety precautions regarding falls. Call or report falls, and seek medical attention for falls with injuries or with significant bleeding or bruising. Total service time 33 minutes. EKG at follow-up. Follow-up in two months. - -Continue other current medications. -Continue aggressive risk factor modification. -Recommend LDL less than 100. -Encouraged regular exercise and activity. - This note was dictated using [employer] software. If something is unclear, or does not make sense, please do not hesitate to contact our office at [phone] for clarification. Not available 12/16/2023 16:02:26 03/30/2024 03/30/2024 Patient Educatio n was printed, I have reviewed the Past Medical, Family, and Social Histories along with ROS and all orders in today's record, and have noted any changes. Medications, charts and records reviewed in full today. - blood pressure 172/70, heart rate 59, weight 161.4 lb. Oxygen saturation 97% on room air. Weight is up 10 lb since last visit. EKG today reveals sinus bradycardia with a rate of 57 beats per minute, poor R-wave progression, nonspecific T-wave abnormality, abnormal EKG. - ECHOCARDIOGRAM: 07/27/2023 - ejection fraction 65-70%. Mild left atrial enlargement with normal right atrial size. Moderate mitral insufficiency. Mild calcification and thickening of the aortic valve leaflets with normal aortic valve leaflet mobility and function there is trivial aortic insufficiency. CARDIAC CATHETERIZATION: 07/26/2023 with mild diffuse coronary artery disease and mild diffuse coronary calcification. Patent stent in the mid/distal circumflex. Mild elevation in left ventricular end-diastolic pressure and pulmonary capillary wedge pressure with moderate pulmonary hypertension but normal pulmonary artery saturation, cardiac output and index. PAST ECHO: 06/2021 revealed an EF of 55% with mild MR, mild tricuspid insufficiency. ISCHEMIC EVALUATION: 04/2022 revealed an anterior wall defect. Intermediate risk stress test. PAST HEART CATH: 05/06/2022. CHADsVASC: 6, high risk. 9% to 13.6% risk of stroke, TIA, and systemic embolism per year. - Plan: Take Entresto BID as prescribed. Monitor blood pressure and heart rate daily, bring log to next visit. Discussed ischemic evaluation, patient wishes to defer. Monitor symptoms, and call or return sooner if symptoms recur or worsen. EKG at follow-up. Follow-up in three months. - -Continue other current medications. -Continue aggressive risk factor modification. -Recommend LDL less than 70. -Encouraged regular exercise and activity. - This note was dictated using [employer] software. If something is unclear, or does not make sense, please do not hesitate to contact our office at [phone] for clarification. Not available 03/30/2024 18:04:22 Plan of Treatment Reminders Order Date Submit Date Provider Last Modified By Organization Details Last Modified Time Details Appointments OV EST 30 2024 11:45A Deepti PINEDA, BÁRBARA, S Not available Not available Not available Lab None recorded. Referral None recorded. Procedures None recorded. Surgeries None recorded. Imaging electroca rdiogram 20[email or web address], [place], [address], 03/30/2024 18:04:22 electroca rdiogram [email or web address], [place], [address], 08/03/2023 09:46:40 Medication Orders Kenalog 10 mg/mL suspensio n for injection 2024 025 [email or web address] Not available 05/25/2024 07:36:03 bupivacai ne HCl 0.5 % (5 mg/mL) injection solution 2024 025 [email or web address] Not available 05/25/2024 07:36:03 Entresto 24 mg-26 mg tablet 2023 024 [email or web address] [facility], [address] [place] [address], [place], [address], 12/16/2023 13:42:52 Patient TargetsNo targets recorded. Patient InstructionsNo instructions recorded. Reason for Referral None Reported. Results Created Date Observation Date Name Description Value Unit Range Abnormal Flag Note LastModifiedBy Organization Detail LastModifiedTime 08/03/19 elect rocar diogr am No observ ation record ed. SOPHY Cooper [address], [place], [address], 08/03/2023 08:56:26 08/03/19 24 08/03/2023 elect rocar diogr am No observ ation record ed. [email or web address] Not Available 2023 11:06:51 03/30/19 elect rocar diogr am No observ ation record ed. SOPHY Cooper [address], [place], [address], 03/30/2024 12:00:16 03/30/19 25 03/30/2024 elect rocar diogr am No observ ation record ed. [email or web address] Not Available 14:20:54 05/03/19 25 05/01/2024 elect rocar diogr am inter preta tion* No observ ation record ed. [email or web address] Not Available 2024 10:43:32 03/25/05/05/2024 XR, [place] No observ ation record ed. [email or web address] Chavez [facility] [address] [facility] , [place], [address], 05/09/2024 15:10:43 Result Notes None recorded. Problems Name Problem SNOMED Code Status Onset Date Resolution Date Notes Provider Name and Address Organization Details Recorded Time Malignant hypertensio n 17478661 Active 2021 Miguelina Sr MD [facility],[address], [place], [address], [place] - [facility] - [facility] & [place] 2 11:37:51 Coronary arterioscle rosis 65648145 Active 2021 Miguelina Sr MD [address] [place] [address],[address], [address], [place] - [facility] - [facility] & [place] 2 11:37:56 Hyperlipide stacia 30679370 Active 2021 Miguelina Sr MD [address] [place] [address],[address], [place], [address], [place] - [facility] - [facility] & [place] 2 11:38:20 Essential hypertensio n 14665325 Active 2022 JULIANO PINEDA NP, S [facility], [address], [place] [facility] [place] 3 17:20:30 Mitral valve regurgitati on 99395354 Active 2022 JULIANO PINEDA NP, S [facility],[address], [place], [address], [place] [facility] & [place] 3 17:20:38 Diabetes mellitus 23997368 Active 2022 JULIANO PINEDA NP, S [facility],[address], [place], [address], [place] - [facility] - [place] & [place] 3 17:20:46 Atrial fibrillatio n 40974987 Active 2022 JULIANO PINEDA NP, S [address] [place] [address],[address], [place], [address], [place] - [facility] - [facility] & [place] 3 17:20:52 Angina pectoris 334379726 Active 2022 Jay Benavides NP [address] [place] [address],[address], [place], [address], [place] - [facility] - [facility] & [place] 3 10:55:07 Pulmonary edema 63595061 Active Jessica Knarr null, [place] - [facility] - [facility] & [place] 4 08:02:48 Infective pneumonia 136735621 Active Jessica Knarr null, [place] - [facility] - [facility] & [place] 4 08:02:48 History of cardiac catheteriza tion 7006637269649 0 Active Jessica Knarr null, [place] - [facility] - [facility] & [place] 4 08:02:48 Sepsis 98659413 Active Jessica Knarr null, [place] - [facility] - [facility] & [place] 4 08:02:48 Diastolic heart failure 442146001 Active 2023 Miguelina Sr MD [address] [place] [address],[address], [address], [place] - [facility] - [facility] & [place] 4 08:56:56 Pulmonary hypertensio n 50561278 Active 2023 Miguelnia Sr MD [address] [place] [address],[address], [place], [address], [place] - [facility] - [facility] & [place] 4 08:57:02 Problem Notes None recorded. Procedures Surgical History Date Name Laterality Status Provider Name and Address Organization Details Recorded Time 05/07/19 23 LEFT HEART CATHETERIZATION (SURG) completed Jay Benavides NP [address] [place] [address],[address], [place], [address], [place] - [facility] - [facility] & [place] 05/14/2022 10:53:55 catheterization of left heart completed Jessica PATEL - [facility] - [place] & [place] 08/03/2023 08:05:07 Hysterectomy completed Jessica PATEL - [facility] - [place] & [place] 12/09/2021 11:29:21 Imaging Results Imaging Date Name Status LastModified by Organization Details LastModified Time 08/03/2023 electrocardiogram completed SOPHY [address], [place], [address], 08/03/2023 08:56:26 08/03/2023 electrocardiogram completed [email or web address] Informa tion not available 08/03/2023 11:06:51 03/30/2024 electrocardiogram completed SOPHY [address], [place], [address], 03/30/2024 12:00:16 03/30/2024 electrocardiogram completed [email or web address] Info rmation not available 03/30/2024 14:20:54 05/01/2024 electrocardiogram interpretation* completed [email or web address] Information not available 05/02/2024 10:43:32 05/05/2024 XR, shoulder completed [email or web address] wilkins [facility] [address] [place] [address] [place], [address], 05/09/2024 15:10:43 Procedure Notes None recorded. Medical Equipment None Reported. Allergies Allergen ID Allergen Name Allergen Category Reaction Reaction Severity Criticality Documentation Date Start Date Code Code System Note Provider Name and Address Organization Details Recorded Time 71788 amlodipin e medicatio n Not available Not available Not available 04/29/2022 53155 RxNorm JORGE Charles - [facility] & [place] 3 11:02:48 11866 hydralazi ne medicatio n Not available Not available Not available 04/29/20222023 5470 RxNorm JORGE Charles - [facility]NT [facility] & [place] 4 08:02:37 65322 lisinopri l medicatio n Not available Not available Not available 04/29/20222023 90772 RxNorm JORGE Charles [facility] & [place] 4 08:02:37 19759 telmisart an medicatio n Not available Not available Not available 04/29/20222023 91720 RxNorm JORGE Charles [facility] & [place] 4 08:02:37 Medications Name Sig Start Date [...] Available Not Available No t Available Vitals Date Recorded Body height Body mass index (BMI) Body weight Oxygen saturation Oxygen saturation in Arterial blood by Pulse oximetry Heart rate Systolic blood pressure Diastolic blood pressure Provider Name and Address Organization Details Last Updated DateTime 4 157.48 cm 27 kg/m2 94076.5 2 g 97 % 97 % 69 /min 158 mm[Hg] 70 mm[Hg] Jessica Turner [facility] & [place] 4 08:02:25 Date Recorded Body height Body mass index (BMI) Body weight Oxygen saturation Oxygen saturation in Arterial blood by Pulse oximetry Heart rate Systolic blood pressure Diastolic blood pressure Provider Name and Address Organization Details Last Updated DateTime 4 157.48 cm 27.7 kg/m2 04894.8 8 g 97 % 97 % 68 /min 110 mm[Hg] 66 mm[Hg] Nancy Gill [facility] & [place] 4 11:06:19 Date Recorded Body height Body mass index (BMI) Body weight Oxygen saturation Oxygen saturation in Arterial blood by Pulse oximetry Heart rate Systolic blood pressure Diastolic blood pressure Provider Name and Address Organization Details Last Updated DateTime 4 157.48 cm 27.6 kg/m2 83696.4 5 g 99 % 99 % 66 /min 146 mm[Hg] 64 mm[Hg] Laura valencia [facility] & [place] 4 13:12:42 Date Recorded Body height Body mass index (BMI) Body weight Oxygen saturation Oxygen saturation in Arterial blood by Pulse oximetry Heart rate Systolic blood pressure Diastolic blood pressure Provider Name and Address Organization Details Last Updated DateTime 5 157.48 cm 29.5 kg/m2 28296.8 1 g 97 % 97 % 59 /min 172 mm[Hg] 70 mm[Hg] Doris Panchal [facility] & [place] 5 11:52:31 Social History Question Answer Notes LastModified by Organizat ion Details LastModified Time Tobacco Smoking Status Never Smoker [facility] [place] 12/09/2021 11:29:10 What Is Your Level Of Alcohol Consumption? None [email or web address] Information not available 03/27/2022 Do You Use Any Illicit Or Recreational Drugs? No [email or web address] Information not available 03/27/2022 Sex: Unknown Functional [...] SNOMED-CT Code Diagnosis ICD10 Code Diagnosis Note [id number] Miguelina Sr MD [place] [address] [place] [address] 12/09/2021 11:07:04 12/09/2021 11:28:49 Essential hypertension 80356594 I10 Malignant hypertension 43179517 I10 Coronary arteriosclerosis 74629299 I25.10 Hyperlipidemia 17524615 E78.5 [id number] JULIANO PINEDA NP, S [address] [place], [place] [address] 03/27/2022 09:10:32 03/27/2022 10:12:34 Essential hypertension 08357693 I10 Atrial fibrillation 4943 6004 I48.91 Coronary arteriosclerosis 40334369 I25.10 Hyperlipidemia 59911758 E78.5 Diabetes mellitus 522134 09 E11.9 Mitral sarah ve regurgitation 91504588 I34.0 Malignant hypertension 25464269 I10 Angina pectoris 57270022 0 I20.9 [id number] Miguelina Sr MD [address] [place] [address] 6 04/02/2022 08:01:21 04/02/2022 08:02:08 Essential hypertension 00655424 I10 EKG INTERPRETA TION: EKG dated 03/27/22 revealed junctional bradycardi a, heart rate 46. Incomplete right bundle branch block. Poor R wave progressio n. Nonspecifi c ST depression + nonspecifi c T-abnormal ity - nondiagnos tic. Abnormal. [id number] Miguelina Sr MD [address] [place] [address] 04/29/2022 10:26:33 04/29/2022 11:41:27 Coronary arteriosclerosis 19652986 I25.10 Malignant hypertension 36880192 I10 Hyperlipidemia 05044183 E78.5 Atrial fibrillation 4943 6004 I48.91 Diabetes mellitus 611003 09 E11.9 Mitral sarah ve regurgitation 84159006 I34.0 Essential hypertension 82760123 I10 Angina pectoris 67720578 0 I20.9 [id number] Jay Benavides NP [address] [place] [address] 05/13/2022 13:10:11 05/13/2022 13:40:28 Essential hypertension 71130592 I10 Coronary arteriosclerosis 99576921 I25.10 Malignant hypertension 97841571 I10 Hyperlipidemia 93496194 E78.5 Atrial fibrillation 4943 6004 I48.91 Diabetes mellitus 679540 09 E11.9 Mitral sarah ve regurgitation 12651396 I34.0 Stented co ronary artery 309411697 Z95.5 [id number] Miguelina Sr MD [address] [place], [place] [address] 06/01/2022 08:36:04 06/01/2022 08:39:23 Essential hypertension 34343940 I10 EKG INTERPRETA TION: EKG dated 05/13/22 revealed normal sinus rhythm with heart rate 65. Nonspecifi c intraventr icular block. Anterolate ral infarct, age undetermin ed. Abnormal ECG. [id number] BÁRBARA Worthy [address] [place], [place] [address] 08/12/2022 12:42:55 08/12/2022 12:56:38 Essential hypertension 30736565 I10 Coronary arteriosclerosis 46581162 I25.10 Malignant hypertension 42808762 I10 Hyperlipidemia 79687707 E78.5 Atrial fibrillation 4943 6004 I48.91 Diabetes mellitus 351229 09 E11.9 Mitral sarah ve regurgitation 89939232 I34.0 Stented co ronary artery 199531797 Z95.5 [id number] Jay Benavides NP [address] [place] [address] 10/12/2022 13:13:22 10/12/2022 14:21:32 Essential hypertension 54427142 I10 Coronary arteriosclerosis 10642548 I25.10 Malignant hypertension 49073189 I10 Hyperlipidemia 78590653 E78.5 Atrial fibrillation 4943 6004 I48.91 Diabetes mellitus 221299 09 E11.9 Mitral sarah ve regurgitation 56728915 I34.0 Stented co ronary artery 339254051 Z95.5 [id number] BÁRBARA Worthy [address] [place] [address] 11/30/2022 14:10:26 11/30/2022 14:27:07 Essential hypertension 52185549 I10 Coronary arteriosclerosis 19239474 I25.10 Malignant hypertension 83762772 I10 Hyperlipidemia 98823114 E78.5 Atrial fibrillation 4943 6004 I48.91 Mitral sarah ve regurgitation 90266341 I34.0 Stented co ronary artery 028836502 Z95.5 Long-term current use of anticoagulant 478125685 Z79.01 [id number] Miguelina Sr MD [address] [place], [place] [address] 05/13/2023 10:05:14 05/13/2023 10:40:59 Essential hypertension 43760110 I10 Coronary arteriosclerosis 08493744 I25.10 Hyperlipidemia 63641883 E78.5 Atrial fibrillation 4943 6004 I48.91 Mitral sarah ve regurgitation 70728513 I34.0 Stented co ronary artery 124088936 Z95.5 Long-term current use of anticoagulant 535833309 Z79.01 Malignant hypertension 35148297 I10 [id number] Miguelina Sr MD [address] [place] [address] 6 08/03/2023 07:46:22 08/03/2023 08:20:12 Essential hypertension 46922132 I10 Coronary arteriosclerosis 71720978 I25.10 Hyperlipidemia 28020705 E78.5 Atrial fibrillation 4943 6004 I48.91 Mitral sarah ve regurgitation 68028710 I34.0 Stented co ronary artery 341757845 Z95.5 Long-term current use of anticoagulant [id number] Z79.01 Malignant hypertension 34138311 I10 Diastolic heart failure 469347298 I50.30 Pulmonary hypertension 53102923 I27.20 [id number] Miguelina Sr MD [address] MANCIA [address] [place], [place] [id number] 11/03/2023 10:58:04 11/03/2023 11:16:15 Essential hypertension 52384911 I10 Coronary arteriosclerosis 69161178 I25.10 Hyperlipidemia 16398303 E78.5 Atrial fibrillation 4943 6004 I48.91 Mitral sarah ve regurgitation 36705926 I34.0 Stented co ronary artery 327979421 Z95.5 Long-term current use of anticoagulant 487319962 Z79.01 Malignant hypertension 21845868 I10 Diastolic heart failure 445466060 I50.30 Pulmonary hypertension 17705134 I27.20 [id number] JULIANO PINEDA NP, S CHAVEZ [address] MANCIA [address] [place] [address] 6 12/16/2023 12:52:37 12/16/2023 14:11:52 Essential hypertension 87651500 I10 Coronary arteriosclerosis 16694274 I25.10 Hyperlipidemia 98358718 E78.5 Atrial fibrillation 4943 6004 I48.91 Mitral sarah ve regurgitation 45889189 I34.0 Stented co ronary artery 431417167 Z95.5 Long-term current use of anticoagulant 987610656 Z79.01 Malignant hypertension 46421061 I10 Diastolic heart failure 968445720 I50.30 Pulmonary hypertension 14735175 I27.20 [id number] JULIANO PINEDA NP, S CHAVEZ [address] MANCIA [address] [place] [address] 6 03/30/2024 11:41:11 03/30/2024 12:31:37 Essential hypertension 24244605 I10 Coronary arteriosclerosis 88524985 I25.10 Hyperlipidemia 76746662 E78.5 Atrial fibrillation 4943 6004 I48.91 Mitral sarah ve regurgitation 30971021 I34.0 Stented co ronary artery 030572012 Z95.5 Long-term current use of anticoagulant 905769263 Z79.01 Malignant hypertension 68953283 I10 Diastolic heart failure 549731954 I50.30 Pulmonary hypertension 85725985 I27.20 [id number] MD CHAVEZ [facility] [address] [place] [phone] 05/23/2024 09:49:24 05/23/2024 11:30:51 Arthritis of left acromioclavicular joint [id number] 695212 M19.012 Full thick ness rotator cuff tear 127251616 M75.122 Health Concerns Section Related Observation LastModified by Organization Detai ls LastModified Time None Recorded Concern Status LastModified by Organization Details LastModified Time None Recorded Advance Directives Directive None Recorded Payers Encounter Date Sequence Insurance Name Policy Number Policy Weinberg Covered Member ID Weinberg Member ID Guarantor Name 08/03/2023 1 [place] Jessa Cristobal [id number] Jessa Cristobal 08/03/2023 2 [place] Jessa Cirstobal [id number] Jessa Cristobal 11/03/2023 1 [place]essa Cristobal [id number] Jessa Cristobal 11/03/2023 2 [place] Jessa Cristobal [id number] Jessa Cristobal 03/30/2024 1 [place] Jessa Cristobal [id number] Jessa Cristobal 03/30/2024 2 [place] Jessa Cristobal [id number] Jessa Cristobal 05/23/2024 1 [place] Jessa Cristobal [id number] Jessa Cristobal 05/23/2024 2 [place] Jessa Cristobal [id number] Jessa Cristobal Notes Date Note Type Note Provider Name and Address Organization Details Recorded Time 08/03/2023 text/html Doing well. No c hest pain pressure or or tightness. Post cardiac catheterization. She is short of breath. Does have some mild edema. No chest pain pressure or tightness. She also has been having an occasional nosebleed. It is happened more frequently. It is mainly when she blows her nose Miguelina Sr MD [address] [place] [address] Drive,[address], [place], [address], [facility] 08/03/2023 08:57:20 11/03/2023 text/html Patient is here for follow-up of medication change. She has been taking Entresto. She has been monitoring the blood pressure and it has been good. She has only been taking it once a day however at night. She got a prescription and it says 1 tablet twice daily but she has only been using it once. She does feel better on it. Miguelina Sr MD [address] [place] [address] Drive,[address], [place], [address], [facility] 11/03/2023 11:23:27 12/16/2023 text/html Jessa is a 78-year-old female who presents today in follow-up. The patient has a history significant for persistent atrial fibrillation, coronary artery disease, hypertension, hyperlipidemia, mitral regurgitation, diabetes mellitus, and chronic kidney disease. Since our last visit, the patient reports that she has had episodes of intermittent dizziness. The patient has had blood pressures with diastolic pressures in the 40s and 50s at home. No falls with injuries. The patient remains on antithrombotic therapy due to paroxysmal atrial fibrillation. The patient has no other cardiovascular or cardiopulmonary complaints. JULIANO PINEDA NP, S [address] [place] [address],[address], [place], [address], [facility] [place] 12/16/2023 16:04:01 03/30/2024 text/html Jessa is a 79-year-old female who presents today in follow-up. The patient has a history significant for persistent atrial fibrillation, coronary artery disease, hypertension, hyperlipidemia, mitral regurgitation, diabetes mellitus, and chronic kidney disease. Since our last visit, the patient reports that she has had some fluctuations in her blood pressure. The patient's home blood pressure monitor log reveals a systolic blood pressure ranging from 135 to 174 beats per minute. The patient's diastolic pressure ranges from 64 to 79. The patient has not been taking Entresto twice daily every day. The patient frequently misses doses according to her own report. No other cardiovascular or cardiopulmonary complaints. JULIANO PINEDA NP, S [address] [place] [address],[address], [place], [address], [facility] [place] 03/30/2024 18:06:06 05/23/2024 text/html 80 year old fema le here today for left shoulder pain ongoing since February 2024- no known injury. She has painful ROM. She has tried tylenol for pain, minimal relief. X-rays of left shoulder taken @[facility]. Prabhjot Yang MD [address] [place] [address] Drive,[address], [place], [address], [facility] [place] 05/24/2024 08:08:56 OBGyn Episode No OBEpisode recorded.
--- NOTE | 2024-05-31 12:53 | MM_ITS ---
PROCEDURE INFORMATION: Exam: MG Bilateral Screening 3D Mammography Exam date and time: 05/31/2024 1:19 PM Age: 79 years old Clinical indication: Screening examination TECHNIQUE: Imaging protocol: Bilateral Screening tomosynthesis and 2D mammography including computer-aided detection (CAD) when performed.Per the technologist the best possible images were obtained as the patient had difficulty with positioning. The exam is degraded by lack of posteroinferior tissue on both MLO views. COMPARISON: 1. MG MM DIG SCREENING MAMM BI W/CAD 01/11/2023 10:14 AM 2. MG MM DIG SCREENING MAMM BI W/CAD 01/05/2022 10:36 AM FINDINGS: MAMMOGRAPHY: Breast composition: There are scattered areas of fibroglandular density. Mass: No suspicious masses. Architectural distortion: None. Calcifications: No suspicious calcifications. Asymmetric density: None. Skin thickening: None. Axillary adenopathy: None. IMPRESSION: No mammographic evidence of malignancy. Annual screening is recommended unless otherwise clinically indicated. ASSESSMENT: BI-RADS Category 1: Negative.
== END 2024-05-31 23:59 | disposition home or self-care (01) ==
LOC: RAD 12:51
PROVIDERS: PCP Nurse Practitioner Family; Visit Provider Nurse Practitioner Family
DX: Z12.31 Encounter for screening mammogram for malignant neoplasm of breast (principal)
CPT/HCPCS: 77063; 77067

== ENCOUNTER 2024-10-09 11:27 | Outpatient (CLI) | payer MEDICARE, MEDICAID, SELFPAY ==
[2024-10-09 13:02] LABS: Free T4 (Free Thyroxine) 1.62 ng/dl (0.78-2.19)
[2024-10-09 13:16] LABS: Thyroid Stimulating Hormone 4.69 uIU/mL (0.465-4.68)
== END 2024-10-09 23:59 | disposition home or self-care (01) ==
LOC: LAB 11:29
PROVIDERS: PCP Nurse Practitioner Family; Visit Provider Nurse Practitioner
DX: E07.89 Other specified disorders of thyroid (principal)
CPT/HCPCS: 36415; 84439; 84443

== ENCOUNTER 2024-10-17 14:26 | Outpatient (CLI) | payer MEDICARE, MEDICAID, SELFPAY ==
--- NOTE | 2024-10-17 14:30 | US_ITS ---
FINAL REPORT TECHNIQUE: Real-time grayscale and color ultrasound of the thyroid was performed. CLINICAL HISTORY: nodules COMPARISON: 11/15/2018 FINDINGS: The thyroid gland measures 3.9 x 1.8 x 1.9 cm on the right and 5.4 x 2.4 x 2.2 cm on the left. The isthmus measures 5 mm. The parenchyma is unremarkable . Nodules: Again seen are a multitude of hypoechoic and anechoic structures scattered throughout both lobes of the thyroid. The dominant focus in the left lobe measures up to 1.7 cm in greatest dimension, consistent with a TR 4 lesion. This appears larger than on the previous exam. IMPRESSION: Interval increase in dominant left TR 4 lesion. Recommend FNA per TI-RADS criteria. Reviewed, Interpreted and Dictated by Arnulfo Majano MD Transcribed by Emily Yanez Authenticated and [facility]
== END 2024-10-17 23:59 | disposition home or self-care (01) ==
LOC: RAD 14:27
PROVIDERS: PCP Nurse Practitioner Family; Visit Provider Nurse Practitioner
DX: E07.89 Other specified disorders of thyroid (principal); E04.2 Nontoxic multinodular goiter
CPT/HCPCS: 76536

== ENCOUNTER → 2024-11-05 19:49 | Outpatient (CLI) | payer MEDICARE, MEDICAID, SELFPAY | LOC: SL 19:51 | PROVIDERS: Visit Provider Specialist | DX: G47.33 Obstructive sleep apnea (adult) (pediatric) (principal); G47.36 Sleep related hypoventilation in conditions classified elsewhere | CPT/HCPCS: 95810 ==

== ENCOUNTER 2024-11-10 08:36 | Outpatient (CLI) | payer MEDICARE, MEDICAID, SELFPAY ==
--- NOTE | 2024-11-10 09:00 | US_ITS ---
FINAL REPORT CLINICAL HISTORY: .FNA LT THYROID -- VILMA WHITTAKER-- FINDINGS: ULTRASOUND GUIDED THYROID BIOPSY HISTORY: Left thyroid nodule/mass. TECHNIQUE: Informed consent was obtained from the patient. A timeout procedure was performed beginning. Limited sonographic evaluation of thyroid gland was performed to localize lesion of interest. The neck was prepped in a routine sterile fashion and locally anesthetized with 1% lidocaine. FNA was performed with 25-gauge needle under direct sonographic visualization. 4 passes were made. Cytology is pending. The nodule was somewhat difficult to biopsy due to poor visualization. The nodule is very deep in the thyroid gland. Procedure was well tolerated. CONCLUSION: 1. Technically successful thyroid fine needle aspiration of a left thyroid nodule. Reviewed, Interpreted and Dictated by Alexandra Jack MD Transcribed by Vilma Vogel PA-C Authenticated and [facility]
== END 2024-11-10 23:59 | disposition home or self-care (01) ==
LOC: RAD 08:37
PROVIDERS: PCP Nurse Practitioner Family; Visit Provider Nurse Practitioner
DX: E04.2 Nontoxic multinodular goiter (principal)
CPT/HCPCS: 10005